=== PATIENT | male | born 1955 | race American Indian/Alaskan Native ===

== ENCOUNTER 2019-03-13 11:09 | Inpatient (IN) | payer MEDICARE ==
[2019-03-13] MEDS ORDERED: DUONEB *Not for PRN Use IH ONE ×2 (11:21→14:12)
--- NOTE | 2019-03-13 11:29 | Emergency Department Report ---
ED General Adult HPI - General Chief complaint: Dyspnea/Respdistress Stated complaint: DIFFICULTY BREATHING Time Seen by Provider: 03/13/19 11:14 Source: patient, EMS Mode of arrival: Stretcher Limitations: No Limitations - History of Present Illness Initial comments: 63-year-old male with history of CHF and COPD is transported via EMS for evaluation of dyspnea. Patient states he did not take his usual medicine today which includes Lasix. He is on CPAP at night and takes home nebulized therapy. He uses Ventolin and Symbicort as well. Hand-held inhaler. He states he's been wheezing over the past 2-3 days. He has had a cough occasionally green but largely nonproductive. He states he thinks he had a fever last night. He is not taking Tylenol today. He does not complain of chest pain. He states he has dyspnea on exertion and some leg swelling. He is requesting a 2-3 day hospitalization. He states, this is usually what is necessary. In addition to the above, the patient states he has service connected disability, chronic lower back pain and "[id number]" of both knees. He takes Percocet and Flexeril daily. He states he is a "borderline diabetic. He is not currently taking prednisone. -: days(s) Severity scale (0 -10): 0 Associated Symptoms: cough, shortness of breath (and wheezing). denies: denies other symptoms Treatments Prior to Arrival: other (home nebulized therapy. Uses CPAP at night.) - Related Data Home Medications Medication Instructions Recorded Confirmed Last Taken Atorvastatin [Lipitor] 80 mg PO QHS 08/10/18 12/07/18 08/18/18 Cyclobenzaprine [Flexeril 10 MG 10 mg PO Q8H PRN 08/10/18 12/07/18 08/18/18 TAB] Previous Rx's Medication Instructions Recorded Last Taken Type Carvedilol [Coreg] 6.25 mg PO BID 30 Days tablet 08/14/18 08/18/18 Rx ISOSORBIDE MONOnitrate [Imdur ER] 60 mg PO QDAY #30 tablet 08/14/18 08/18/18 Rx Tamsulosin HCl [Flomax] 0.4 mg PO QPM #30 capsule 08/14/18 08/18/18 Rx ALBUTEROL NEB's [Proventil 0.083% 2.5 mg IH Q3HRT PRN #30 nebu 08/22/18 Unknown Rx NEBS] Acetaminophen [Acetaminophen TAB] 650 mg PO Q4H PRN #20 tablet 08/22/18 Unknown Rx Amlodipine Besylate [Norvasc] 10 mg PO QDAY #30 tablet 08/22/18 Unknown Rx Budesonide/Formoterol Fumarate 1 puff IH Q12H #1 hfa.aer.ad 08/22/18 Unknown Rx [Symbicort 160-4.5 Mcg Inhaler] Bumetanide [Bumex 1 mg tab] 1 mg PO BID #60 tablet 08/22/18 Unknown Rx Gabapentin [Neurontin] 100 mg PO Q8HR capsule 08/22/18 Unknown Rx Insulin Glargine [Lantus VIAL] 10 units SUB-Q QHS #100 units 08/22/18 Unknown Rx Ipratropium/Albuterol Sulfate 1 ampul IH Q6HR #120 ampul.neb 08/22/18 Unknown Rx [DUONEB *Not for PRN Use*] Lispro Insulin [HumaLOG] 1 dose SUB-Q ACHS PRN #100 units 08/22/18 Unknown Rx Pantoprazole [Protonix TAB] 40 mg PO QDAY #30 tablet 08/22/18 Unknown Rx Allergies Allergy/AdvReac Type Severity Reaction Status Date / Time haloperidol [From Haldol] Allergy Unknown Verified 11/20/18 13:50 tramadol Allergy Rash Verified 11/20/18 13:50 ED Review of Systems ROS: Stated complaint: DIFFICULTY BREATHING Other details as noted in HPI Constitutional: denies: chills, fever Eyes: denies: eye pain, eye discharge, vision change ENT: denies: ear pain, throat pain Respiratory: cough, shortness of breath, wheezing Cardiovascular: edema. denies: chest pain, palpitations Endocrine: no symptoms reported Gastrointestinal: denies: abdominal pain, nausea, diarrhea Genitourinary: denies: urgency, dysuria Musculoskeletal: denies: back pain, joint swelling, arthralgia Skin: denies: rash, lesions Neurological: denies: headache, weakness, paresthesias Psychiatric: denies: anxiety, depression Hematological/Lymphatic: denies: easy bleeding, easy bruising ED Past Medical Hx - Past Medical History Previous Medical History?: Yes Hx Hypertension: Yes (H/O CHF) Hx Heart Attack/AMI: No Hx Congestive Heart Failure: Yes Hx Diabetes: Yes Hx Deep Vein Thrombosis: No Hx Pulmonary Embolism: No Hx Liver Disease: No Hx Renal Disease: No Hx Sickle Cell Disease: No Hx Arthritis: No Hx Seizures: No Hx Kidney Stones: No Hx Asthma: No Hx COPD: Yes (Inhalation therapy x2 last 12 hours) Hx Tuberculosis: No Hx Dementia: No Additional medical history: neuropathy. DJD - Surgical History Hx Open Heart Surgery: No Hx Internal Defibrillator: No Hx Cholecystectomy: No Hx Appendectomy: No Hx Breast Surgery: No - Social History Smoking Status: Former Smoker - Medications Home Medications: Home Medications Medication Instructions Recorded Confirmed Last Taken Type Atorvastatin [Lipitor] 80 mg PO QHS 08/10/18 12/07/18 08/18/18 History Cyclobenzaprine [Flexeril 10 MG 10 mg PO Q8H PRN 08/10/18 12/07/18 08/18/18 History TAB] Carvedilol [Coreg] 6.25 mg PO BID 30 Days tablet 08/14/18 12/07/18 08/18/18 Rx ISOSORBIDE MONOnitrate [Imdur ER] 60 mg PO QDAY #30 tablet 08/14/18 12/07/18 08/18/18 Rx Tamsulosin HCl [Flomax] 0.4 mg PO QPM #30 capsule 08/14/18 12/07/18 08/18/18 Rx ALBUTEROL NEB's [Proventil 0.083% 2.5 mg IH Q3HRT PRN #30 nebu 08/22/18 12/07/18 Unknown Rx NEBS] Acetaminophen [Acetaminophen TAB] 650 mg PO Q4H PRN #20 tablet 08/22/18 12/07/18 Unknown Rx Amlodipine Besylate [Norvasc] 10 mg PO QDAY #30 tablet 08/22/18 12/07/18 Unknown Rx Budesonide/Formoterol Fumarate 1 puff IH Q12H #1 hfa.aer.ad 08/22/18 12/07/18 Unknown Rx [Symbicort 160-4.5 Mcg Inhaler] Bumetanide [Bumex 1 mg tab] 1 mg PO BID #60 tablet 08/22/18 12/07/18 Unknown Rx Gabapentin [Neurontin] 100 mg PO Q8HR capsule 08/22/18 12/07/18 Unknown Rx Insulin Glargine [Lantus VIAL] 10 units SUB-Q QHS #100 units 08/22/18 12/07/18 Unknown Rx Ipratropium/Albuterol Sulfate 1 ampul IH Q6HR #120 ampul.neb 08/22/18 12/07/18 Unknown Rx [DUONEB *Not for PRN Use*] Lispro Insulin [HumaLOG] 1 dose SUB-Q ACHS PRN #100 units 08/22/18 12/07/18 Unknown Rx Pantoprazole [Protonix TAB] 40 mg PO QDAY #30 tablet 08/22/18 12/07/18 Unknown Rx ED Physical Exam - General Limitations: No Limitations General appearance: alert, in no apparent distress, obese - Head Head exam: Present: atraumatic, normocephalic - Eye Eye exam: Present: normal appearance. Absent: scleral icterus - ENT ENT exam: Present: mucous membranes moist - Neck Neck exam: Present: normal inspection. Absent: tenderness, meningismus - Respiratory Respiratory exam: Present: decreased breath sounds, other (mild and expiratory wheeze). Absent: respiratory distress, rales, rhonchi, stridor, accessory muscle use - Cardiovascular Cardiovascular Exam: Present: regular rate, normal rhythm. Absent: systolic murmur, diastolic murmur, rubs, gallop - GI/Abdominal GI/Abdominal exam: Present: soft, normal bowel sounds. Absent: distended, tenderness, guarding, rebound - Rectal Rectal exam: Present: deferred - Extremities Exam Extremities exam: Present: other (trace if any pretibial edema ). Absent: calf tenderness - Back Exam Back exam: Present: normal inspection - Neurological Exam Neurological exam: Present: alert, oriented X3, CN II-XII intact. Absent: motor sensory deficit - Psychiatric Psychiatric exam: Present: normal affect, normal mood - Skin Skin exam: Present: warm, dry, intact, normal color. Absent: rash ED Course Vital Signs 03/13/19 03/13/19 03/13/19 11:17 11:19 11:28 Temperature 97.8 F Pulse Rate 90 76 Pulse Rate [ Bilateral Upper Lobe] Respiratory 18 18 19 Rate Respiratory Rate [Bilateral Upper Lobe] Blood Pressure 144/96 141/71 [Left] O2 Sat by Pulse 95 95 95 Oximetry 03/13/19 03/13/19 11:34 11:40 Temperature Pulse Rate Pulse Rate [ 85 88 Bilateral Upper Lobe] Respiratory Rate Respiratory 20 20 Rate [Bilateral Upper Lobe] Blood Pressure [Left] O2 Sat by Pulse Oximetry - Reevaluation(s) Reevaluation #1: The patient's air exchange has improved. He has some end expiratory wheeze. He is requesting hospitalization. His pulse oximetry is 94-95% on room air. He has NANDO. He is not on home oxygen. Arterial blood gas will be obtained on room air. He will be admitted by the hospitalist service for further care and evaluation. 03/13/19 14:19 ED Medical Decision Making - Lab Data Result diagrams: 03/13/19 11:28 03/13/19 11:28 Laboratory Results - last 24 hr 03/13/19 03/13/19 03/13/19 11:28 11:28 11:28 WBC 4.5 RBC 4.44 Hgb 12.9 Hct 39.8 MCV 90 MCH 29 MCHC 32 RDW 16.9 H Plt Count 270 Lymph % (Auto) 23.3 [place] % (Auto) 10.5 H Eos % (Auto) 3.4 Baso % (Auto) 0.9 Lymph # 1.0 L [place] # 0.5 Eos # 0.2 Baso # 0.0 Seg Neutrophils % 61.9 Seg Neutrophils # 2.8 PT 12.8 INR 0.91 APTT 26.9 Sodium 143 Potassium 4.3 Chloride 105.1 Carbon Dioxide 27 Anion Gap 15 BUN 13 Creatinine 0.8 Estimated GFR > 60 BUN/Creatinine Ratio 16 Glucose 124 H Calcium 9.0 Magnesium 2.10 Total Bilirubin Direct Bilirubin Indirect Bilirubin AST ALT Alkaline Phosphatase Total Creatine Kinase 122 CK-MB (CK-2) 2.3 CK-MB (CK-2) Rel Index 1.8 Troponin T < 0.010 NT-Pro-B Natriuret Pep Total Protein Albumin Albumin/Globulin Ratio 03/13/19 11:28 WBC RBC Hgb Hct MCV MCH MCHC RDW Plt Count Lymph % (Auto) [place] % (Auto) Eos % (Auto) Baso % (Auto) Lymph # [place] # Eos # Baso # Seg Neutrophils % Seg Neutrophils # PT INR APTT Sodium Potassium Chloride Carbon Dioxide Anion Gap BUN Creatinine Estimated GFR BUN/Creatinine Ratio Glucose Calcium Magnesium Total Bilirubin 0.30 Direct Bilirubin < 0.2 Indirect Bilirubin 0.1 AST 9 ALT 12 Alkaline Phosphatase 84 Total Creatine Kinase CK-MB (CK-2) CK-MB (CK-2) Rel Index Troponin T NT-Pro-B Natriuret Pep 136.9 Total Protein 7.0 Albumin 3.4 L Albumin/Globulin Ratio 0.9 - EKG Data -: EKG Interpreted by Me EKG shows normal: sinus rhythm, axis, intervals, QRS complexes, ST-T waves Rate: normal - EKG Data Interpretation: no acute changes - Radiology Data Radiology results: report reviewed, image reviewed IMPRESSION: * Stable cavitary lesion or pulmonary cyst in the right apical lung. * Pulmonary findings may represent pneumonia, bronchitis, reactive airway disease, interstitial pneumonitis, or pulmonary vascular congestion. Suspect mild pulmonary vascular congestion. Critical care attestation.: If time is entered above; I have spent that time in minutes in the direct care of this critically ill patient, excluding procedure time. ED Disposition Clinical Impression: COPD exacerbation Disposition: OP ADMIT IP TO THIS HOSP Is pt being admited?: Yes Does the pt Need Aspirin: Yes Condition: Stable Instructions: Chronic Obstructive Pulmonary Disease (ED) Time of Disposition: 14:20
[2019-03-13 11:39] LABS: Basophils % (Auto) 0.9 % (0.0-1.8); Eosinophils # (Auto) 0.2 K/mm3 (0.0-0.4); Eosinophils % (Auto) 3.4 % (0.0-4.3); Hematocrit 39.8 % (35.5-45.6); Hemoglobin 12.9 gm/dl (11.8-15.2); Lymphocytes % (Auto) 23.3 % (13.4-35.0); Mean Corpuscular HGB Conc 32 % (32-34); Mean Corpuscular Volume 90 fl (84-94); Monocytes # (Auto) 0.5 K/mm3 (0.0-0.8); Monocytes % (Auto) 10.5 % (0.0-7.3); Platelet Count 270 K/mm3 (140-440); Red Blood Count 4.44 M/mm3 (3.65-5.03); Red Cell Distribution Width 16.9 % (13.2-15.2)
[2019-03-13 11:50] LABS: INR 0.91 (0.87-1.13)
[2019-03-13 11:51] LABS: Partial Thromboplastin Time 26.9 Sec. (24.2-36.6)
--- NOTE | 2019-03-13 12:01 | XRay Report ---
PROCEDURE: XR CHEST 1V AP TECHNIQUE: Chest radiograph, AP portable upright view. HISTORY: Dyspnea COMPARISONS: Chest x-ray November 20, 2018. FINDINGS: Cardiac silhouette is within normal limits. This is seen in the right apical lung may represent a cavitary lesion of pulmonary cyst which is unch anged compared to the prior. Mild a prominent central pulmonary markings. No pneumothorax. No distinc t consolidation. No effusion. There are no suspicious osseous lesions. IMPRESSION: * Stable cavitary lesion or pulmonary cyst in the right apical lung. * Pulmonary findings may represent pneumonia, bronchitis, reactive airway disease, interstitial pneu monitis, or pulmonary vascular congestion. Suspect mild pulmonary vascular congestion. This document is electronically signed by Eulogio Kaur MD., Mar 13 2019 11:59:36 AM ET
[2019-03-13 12:02] LABS: BUN/Creatinine Ratio 16; Blood Urea Nitrogen 13 mg/dL (9-20); Hemolysis Index 6
[2019-03-13 12:03] LABS: Creatine Kinase MB 2.3 ng/mL (0.0-4.0)
[2019-03-13 12:06] LABS: Alanine Aminotransferase 12 units/L (7-56); Albumin 3.4 g/dL (3.9-5); Bilirubin,Direct < 0.2 mg/dL (0-0.2)
[2019-03-13] MEDS ORDERED: SOLU-Medrol IV ONE (12:20)
[2019-03-13 12:37] LABS: Bilirubin,Urine NEG (Negative); Blood,Urine NEG (Negative); Color,Urine Yellow (Yellow); Mucus,Urine 2+ /HPF; Protein,Urine <15 mg/dL mg/dL (Negative); Urobilinogen,Urine < 2.0 mg/dL (<2.0)
--- NOTE | 2019-03-13 14:10 | History and Physical Report ---
History of Present Illness Chief complaint: I cant breathe History of present illness: 63 YO Male with MO, Systolic CHF, COPD, HLD, Chronic Pain, HTN, DJD, Peripheral Neuropathy,Nephrolithiasis, NANDO on CPAP presents to ED for evaluation. Pt states that he has experienced shortness of breath over the past 3 days with worsening symptoms over the past 2 days. Pt acknowledges persistently worsening symptoms with increased use of nebulizer therapy, increased productive cough with production of green sputum, dypsnea on exertion, dypsnea at rest, decreased exercise tolerance. Pt denies fever, chills, CP, Palpitations, NVD, productive cough, hemoptysis, unilateral leg swelling, calf pain, prolonged travel/immobility, orthopnea/PND, unintentional weight gain . Pt transported to [facility] by family for further care and evaluation. Pt seen and evaluated in ED and found to have COPD Exacerbation, complicated by Acute Respiratory Failure, CHF Decompensation. Pt treated with supplemental oxygen, nebulizer therapy and diuresis with improvement in symptoms. Pt admitted to telemetry, and initiated on CHF protocol. Cardiology consulted in ED. Past History Past Medical History: arthritis, COPD, heart failure, hypertension, hyperlipidemia Past Surgical History: No surgical history, Other (reviewed) Social history: single, Lives alone. denies: smoking, alcohol abuse, prescription drug abuse Family history: diabetes, hypertension Medications and Allergies Allergies Allergy/AdvReac Type Severity Reaction Status Date / Time haloperidol [From Haldol] Allergy Unknown Verified 11/20/18 13:50 tramadol Allergy Rash Verified 11/20/18 13:50 Home Medications Medication Instructions Recorded Confirmed Last Taken Type Atorvastatin [Lipitor] 80 mg PO QHS 08/10/18 03/13/19 08/18/18 History Cyclobenzaprine [Flexeril 10 MG 10 mg PO Q8H PRN 08/10/18 03/13/19 08/18/18 History TAB] Carvedilol [Coreg] 6.25 mg PO BID 30 Days tablet 08/14/18 03/13/19 08/18/18 Rx ISOSORBIDE MONOnitrate [Imdur ER] 60 mg PO QDAY #30 tablet 08/14/18 03/13/19 08/18/18 Rx Tamsulosin HCl [Flomax] 0.4 mg PO QPM #30 capsule 08/14/18 03/13/19 08/18/18 Rx ALBUTEROL NEB's [Proventil 0.083% 2.5 mg IH Q3HRT PRN #30 nebu 08/22/18 03/13/19 Unknown Rx NEBS] Acetaminophen [Acetaminophen TAB] 650 mg PO Q4H PRN #20 tablet 08/22/18 03/13/19 Unknown Rx Amlodipine Besylate [Norvasc] 10 mg PO QDAY #30 tablet 08/22/18 03/13/19 Unknown Rx Budesonide/Formoterol Fumarate 1 puff IH Q12H #1 hfa.aer.ad 08/22/18 03/13/19 Unknown Rx [Symbicort 160-4.5 Mcg Inhaler] Bumetanide [Bumex 1 mg tab] 1 mg PO BID #60 tablet 08/22/18 03/13/19 Unknown Rx Gabapentin [Neurontin] 100 mg PO Q8HR capsule 08/22/18 03/13/19 Unknown Rx Insulin Glargine [Lantus VIAL] 10 units SUB-Q QHS #100 units 08/22/18 03/13/19 Unknown Rx Ipratropium/Albuterol Sulfate 1 ampul IH Q6HR #120 ampul.neb 08/22/18 03/13/19 Unknown Rx [DUONEB *Not for PRN Use*] Lispro Insulin [HumaLOG] 1 dose SUB-Q ACHS PRN #100 units 08/22/18 03/13/19 Unknown Rx Furosemide [Lasix TAB] 40 mg PO BID 03/13/19 03/13/19 Unknown History oxyCODONE /ACETAMINOPHEN [Percocet 1 tab PO Q6HR PRN 03/13/19 03/13/19 Unknown History 5/325] Review of Systems Constitutional: no weight loss, no weight gain Ears, nose, mouth and throat: no ear pain, no ear discharge, no tinnitis, no decreased hearing, no nose pain, no nasal congestion Cardiovascular: shortness of breath, dyspnea on exertion, leg edema, decreased exercise tolerance, no chest pain, no palpitations, no rapid/irregular heart beat Respiratory: cough, cough with sputum, excessive sputum, shortness of breath Gastrointestinal: no nausea, no vomiting, no diarrhea, no constipation Genitourinary Male: no flank pain, no discharge, no urinary frequency, no urinary hesitancy Rectal: no pain, no incontinence, no bleeding Musculoskeletal: no neck stiffness, no neck pain, no shooting arm pain, no arm numbness/tingling, no low back pain Integumentary: no rash, no pruritis, no redness, no sores, no wounds Neurological: no head injury, no transient paralysis, no paralysis, no weakness, no parathesias, no numbness, no tingling Psychiatric: no anxiety, no memory loss, no hypersomnia, no change in appetite, no disorientation Endocrine: no cold intolerance, no heat intolerance, no polyphagia, no polydipsia Hematologic/Lymphatic: no easy bruising, no easy bleeding, no lymphadenopathy, no lymphedema Allergic/Immunologic: no urticaria, no allergic rhinitis, no anaphylaxis, no angioedema Exam - Constitutional Vitals: Temp Pulse Resp BP Pulse Ox 97.8 F 88 20 141/71 95 03/13/19 11:28 03/13/19 11:40 03/13/19 11:40 03/13/19 11:28 03/13/19 11:28 General appearance: Present: mild distress, obese - EENT Eyes: Present: PERRL ENT: hearing intact, clear oral mucosa - Neck Neck: Present: supple, normal ROM - Respiratory Respiratory effort: normal Respiratory: bilateral: diminished, rhonchi - Cardiovascular Heart Sounds: Present: S1 & S2. Absent: rub, click - Extremities Extremities: pulses symmetrical Extremity abnormal: edema Peripheral Pulses: within normal limits - Abdominal General gastrointestinal: Present: soft, non-tender, non-distended, normal bowel sounds Male genitourinary: Present: normal - Integumentary Integumentary: Present: clear, warm, dry - Musculoskeletal Musculoskeletal: gait normal, strength equal bilaterally - Psychiatric Psychiatric: appropriate mood/affect, intact judgment & insight - Neurologic Neurologic: CNII-XII intact, moves all extremities Results - Labs CBC & Chem 7: 03/13/19 11:28 03/13/19 11:28 Labs: Abnormal lab results 03/13/19 03/13/19 03/13/19 Range/Units 11:28 11:28 11:28 RDW 16.9 H (13.2-15.2) % [place] % (Auto) 10.5 H (0.0-7.3) % Lymph # 1.0 L (1.2-5.4) K/mm3 Glucose 124 H (75-100) mg/dL Albumin 3.4 L (3.9-5) g/dL Assessment and Plan - Patient Problems (1) CHF exacerbation Current Visit: No Status: Acute Qualifiers: Heart failure type: diastolic Qualified Code(s): I50.33 - Acute on chronic diastolic (congestive) heart failure Plan to address problem: CHF Protocol: Admit to telemetry, strict I/O, daily weight, BNP, chest x ray, cardiology consulted in ED, supplemental oxygen, pulse oximetry, diuresis, (2) Obesity hypoventilation syndrome Current Visit: Yes Status: Acute Plan to address problem: Supplemental oxygen, nebulizer therapy, pulse oximetry, NIVVP as clinically indicated, increased physical activity at discharge, outpatient bariatric surgery evaluation. (3) HLD (hyperlipidemia) Current Visit: No Status: Acute Qualifiers: Hyperlipidemia type: mixed hyperlipidemia Qualified Code(s): E78.2 - Mixed hyperlipidemia Plan to address problem: low cholesterol diet, statin therapy, (4) HTN (hypertension) Current Visit: No Status: Acute Qualifiers: Hypertension type: essential hypertension Qualified Code(s): I10 - Es sential (primary) hypertension Plan to address problem: Monitor BP q shift, continue medical management (5) COPD (chronic obstructive pulmonary disease) Current Visit: Yes Status: Acute Qualifiers: COPD type: COPD with acute exacerbation Qualified Code(s): J44.1 - Chronic obstructive pulmonary disease with (acute) exacerbation Plan to address problem: IV steroid therapy, empriic antibiotic therapy, supplemental oxygen, nebulizer therapy, NIPPV as clinically indicated, chest x ray, (6) Respiratory failure Current Visit: Yes Status: Acute Qualifiers: Chronicity: acute Respiratory failure complication: hypoxia Qualified Code(s): J96.01 - Acute respiratory failure with hypoxia Plan to address problem: Supplemental oxygen, nebulizer therapy, pulse oximetry, NIPPV as clinically indicated, pulmonary toilet, treat COPD exacerbation, as well as CHF decompensation, chest x ray. (7) DVT prophylaxis Current Visit: No Status: Acute Plan to address problem: SCD to BLE while in bed, prophylactic lovenox
[2019-03-13] MEDS ORDERED: ZOFRAN IV PRN (14:12)
[2019-03-13] MEDS ORDERED: SODIUM CHLORIDE FLUSH SYRINGE 10 ML IV PRN (14:12)
[2019-03-13] MEDS ORDERED: TYLENOL PO PRN ×2 (14:12→14:14)
[2019-03-13] MEDS ORDERED: PROVENTIL IH PRN (14:12)
[2019-03-13] MEDS ORDERED: HumaLOG SUB-Q PRN (14:14)
[2019-03-13] MEDS ORDERED: NON-FORMULARY (Budesonide/Formoterol Fumarate [Symbicort 160-4.5 Mcg Inhaler] 1 PUFF) IH SCH (14:15)
[2019-03-13] MEDS ORDERED: ASPIRIN PO ONE (14:25)
[2019-03-13] MEDS ORDERED: SOLU-Medrol ONE (14:45)
[2019-03-13] MEDS: LASIX IV SCH (18:18)
[2019-03-13] MEDS: PERCOCET 5/325 PO PRN (18:18)
[2019-03-13] MEDS: HumaLOG SUB-Q SCH ×2 (18:19→22:51)
[2019-03-13] MEDS: FLOMAX PO SCH (18:19)
[2019-03-13] MEDS: BROVANA NEBU IH SCH (19:57)
[2019-03-13] MEDS: PULMICORT IH SCH (19:57)
[2019-03-13] MEDS ORDERED: PULMICORT IH SCH (20:00)
[2019-03-13] MEDS ORDERED: PERCOCET 5/325 PO PRN (20:45)
[2019-03-13] MEDS: LOVENOX SUB-Q SCH (21:35)
[2019-03-13] MEDS: BUMEX PO SCH (21:36)
[2019-03-13] MEDS: NEURONTIN PO SCH (21:36)
[2019-03-13] MEDS: FLEXERIL PO PRN (21:36)
[2019-03-13] MEDS: SODIUM CHLORIDE FLUSH SYRINGE 10 ML IV SCH (21:39)
[2019-03-13] MEDS ORDERED: NON-FORMULARY (Atorvastatin [Lipitor] 80 MG) PO SCH (22:00)
[2019-03-13] MEDS: LANTUS SUB-Q SCH (22:51)
[2019-03-14] MEDS: PERCOCET 5/325 PO PRN ×4 (00:13→18:33)
[2019-03-14] MEDS: LASIX IV SCH ×2 (05:58→18:06)
[2019-03-14] MEDS: NEURONTIN PO SCH ×4 (05:59→21:50)
[2019-03-14 08:13] LABS: Hemoglobin 13.2 gm/dl (11.8-15.2); Mean Corpuscular HGB Conc 33 % (32-34); Mean Corpuscular Volume 89 fl (84-94); Platelet Count 288 K/mm3 (140-440)
[2019-03-14 08:34] LABS: BUN/Creatinine Ratio 14; Blood Urea Nitrogen 13 mg/dL (9-20); Calcium 9.4 mg/dL (8.4-10.2)
[2019-03-14 08:35] LABS: Alanine Aminotransferase 13 units/L (7-56); Albumin 3.7 g/dL (3.9-5); Hemolysis Index 5
[2019-03-14] MEDS: HumaLOG SUB-Q SCH ×4 (08:49→21:51)
[2019-03-14] MEDS: NORVASC PO SCH (09:18)
[2019-03-14] MEDS: IMDUR PO SCH (09:19)
[2019-03-14] MEDS: BUMEX PO SCH ×2 (09:19→21:36)
[2019-03-14] MEDS: PROTONIX PO SCH (09:19)
[2019-03-14] MEDS: FLEXERIL PO PRN ×2 (09:19→18:06)
[2019-03-14] MEDS: SOLU-Medrol IV SCH ×2 (09:19→21:38)
[2019-03-14] MEDS: SODIUM CHLORIDE FLUSH SYRINGE 10 ML IV SCH ×2 (09:21→21:38)
--- NOTE | 2019-03-14 10:18 | Progress Note ---
Assessment and Plan Assessment and plan: 63 YO Male with MO, Systolic CHF, COPD, HLD, Chronic Pain, HTN, DJD, Peripheral Neuropathy,Nephrolithiasis, NANDO on CPAP presents to ED for evaluation. Pt states that he has experienced shortness of breath over the past 3 days with worsening symptoms over the past 2 days. Pt acknowledges persistently worsening symptoms with increased use of nebulizer therapy, increased productive cough with production of green sputum, dypsnea on exertion, dypsnea at rest, decreased exercise tolerance. Pt denies fever, chills, CP, Palpitations, NVD, productive cough, hemoptysis, unilateral leg swelling, calf pain, prolonged travel/immobility, orthopnea/PND, unintentional weight gain . Pt transported to [facility] by family for further care and evaluation. Pt seen and evaluated in ED and found to have COPD Exacerbation, complicated by Acute Respiratory Failure, CHF Decompensation. Pt treated with supplemental oxygen, nebulizer therapy and diuresis with improvement in symptoms. Pt admitted to telemetry, and initiated on CHF protocol. Cardiology consulted in ED. EKG shows normal: sinus rhythm, axis, intervals, QRS complexes, ST-T waves CXR IMPRESSION: * Stable cavitary lesion or pulmonary cyst in the right apical lung. * Pulmonary findings may represent pneumonia, bronchitis, reactive airway disease, interstitial pneumonitis, or pulmonary vascular congestion. Suspect mild pulmonary vascular congestion. Acute Congestive heart failure-presumed Diastolic Obesity hypoventilation syndrome COPD with mild exacerbation Acute respiratory failure with no demonstrable hypoxia Acute bronchitis Diabetes mellitus with hyperglycemia Hyperlipidemia Hypertension RECTAL BLEED- NON CURRENTLY- FOLLOW OUTPATIENT Plan Continue current management while awaiting cardiology evaluation. Echocardiogram pending. Extensive discussion held with the patient about compliance with fluid , while i understandings reason and also on his diet. The patient also blames steroids for his weight gain. He states that he has made some changes in eating habits. We'll also continue treatment with antibiotics for possible delighted bronchitis. Taper steroids He is an ex-smoker reports no further smoking for a few years now. The report intermittent blood in his stool he states that he has a GI doctor that he will follow outpatient. Does not want any evaluation at this time here. dvt/gi PROPHY Anticipate discharge in am History Interval history: Patient seen and examined this morning upset about getting his hypotension diet which the ED doctor promised him. Otherwise reports improvement of symptoms except for still some shortness of breath due to fluid which he says he still feels a little bit more in his lungs. Also he reports a history of having cough consistent with productive phlegm of green phlegm which is described as appearing like a possible. 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 Hospitalist Physical - Physical exam Narrative exam: VITAL SIGNS: Reviewed. GENERAL: The patient appeared well nourished and normally developed, morbidly obese Vital signs as documented. HEAD: No signs of head trauma. EYES: Pupils are equal. Extraocular motions intact. EARS: Hearing grossly intact. MOUTH: Oropharynx is normal. NECK: No adenopathy, no JVD. Mildly tender on the right side. CHEST: Chest with clear breath sounds bilaterally. No wheezes, rales, or rhonchi. CARDIAC: Regular rate and rhythm. S1 and S2, without murmurs, gallops, or rubs. VASCULAR: Trace bilateral pitting edema Peripheral pulses normal and equal in all extremities. ABDOMEN: Increased truncal obesity Soft, non tender and non distended. No rebound or guarding, and no masses palpated. Bowel Sounds normal. MUSCULOSKELETAL: Good range of motion of all major joints. Extremities without clubbing, cyanosis. Trace bilateral pretibial edema NEUROLOGIC EXAM: Alert and oriented x 3 No focal sensory or strength deficits. Speech normal. Follows commands. PSYCHIATRIC: Mood normal. SKIN: Right lower extremity with old healed scars. - Constitutional Vitals: Temp Pulse Resp BP Pulse Ox 98.1 F 92 H 20 138/85 95 03/14/19 05:48 03/14/19 09:18 03/14/19 06:25 03/14/19 09:18 03/14/19 05:52 General appearance: Present: mild distress, obese Results - Labs CBC & Chem 7: 03/14/19 07:37 03/14/19 07:37 Labs: Laboratory Last Values WBC 13.0 K/mm3 (4.5-11.0) H 03/14/19 07:37 RBC 4.50 M/mm3 (3.65-5.03) 03/14/19 07:37 Hgb 13.2 gm/dl (11.8-15.2) 03/14/19 07:37 Hct 40.0 % (35.5-45.6) 03/14/19 07:37 MCV 89 fl (84-94) 03/14/19 07:37 MCH 29 pg (28-32) 03/14/19 07:37 MCHC 33 % (32-34) 03/14/19 07:37 RDW 17.0 % (13.2-15.2) H 03/14/19 07:37 Plt Count 288 K/mm3 (140-440) 03/14/19 07:37 Lymph % (Auto) 23.3 % (13.4-35.0) 03/13/19 11:28 Brown % (Auto) 10.5 % (0.0-7.3) H 03/13/19 11:28 Eos % (Auto) 3.4 % (0.0-4.3) 03/13/19 11:28 Baso % (Auto) 0.9 % (0.0-1.8) 03/13/19 11:28 Lymph # 1.0 K/mm3 (1.2-5.4) L 03/13/19 11:28 Brown # 0.5 K/mm3 (0.0-0.8) 03/13/19 11:28 Eos # 0.2 K/mm3 (0.0-0.4) 03/13/19 11:28 Baso # 0.0 K/mm3 (0.0-0.1) 03/13/19 11:28 Seg Neutrophils % [employer] 03/14/19 07:37 Seg Neutrophils # 2.8 K/mm3 (1.8-7.7) 03/13/19 11:28 PT 12.8 Sec. (12.2-14.9) 03/13/19 11:28 INR 0.91 (0.87-1.13) 03/13/19 11:28 APTT 26.9 Sec. (24.2-36.6) 03/13/19 11:28 Sodium 138 mmol/L (137-145) 03/14/19 07:37 Potassium 4.8 mmol/L (3.6-5.0) 03/14/19 07:37 Chloride 98.1 mmol/L (98-107) 03/14/19 07:37 Carbon Dioxide 26 mmol/L (22-30) 03/14/19 07:37 19 mmol/L 03/14/19 07:37 BUN 13 mg/dL (9-20) 03/14/19 07:37 0.9 mg/dL (0.8-1.5) 03/14/19 07:37 Estimated GFR > 60 ml/min 03/14/19 07:37 14 % 03/14/19 07:37 Glucose 224 mg/dL (75-100) H 03/14/19 07:37 POC Glucose 235 (70-105) H 03/14/19 07:48 Calcium 9.4 mg/dL (8.4-10.2) 03/14/19 07:37 Magnesium 2.10 mg/dL (1.7-2.3) 03/13/19 11:28 0.30 mg/dL (0.1-1.2) 03/14/19 07:37 < 0.2 mg/dL (0-0.2) 03/13/19 11:28 0.1 mg/dL 03/13/19 11:28 AST 9 units/L (5-40) 03/14/19 07:37 ALT 13 units/L (7-56) 03/14/19 07:37 84 units/L (35-129) 03/14/19 07:37 122 units/L (55-170) 03/13/19 11:28 CK-MB (CK-2) 2.3 ng/mL (0.0-4.0) 03/13/19 11:28 CK-MB (CK-2) Rel Index 1.8 (0-4) 03/13/19 11:28 < 0.010 ng/mL (0.00-0.029) 03/13/19 11:28 NT-Pro-B Natriuret Pep 136.9 pg/mL (0-900) 03/13/19 11:28 7.5 g/dL (6.3-8.2) 03/14/19 07:37 3.7 g/dL (3.9-5) L 03/14/19 07:37 1.0 % 03/14/19 07:37 Yellow (Yellow) 03/13/19 12:18 Clear (Clear) 03/13/19 12:18 5.0 (5.0-7.0) 03/13/19 12:18 Ur Specific [place] 1.025 (1.003-1.030) 03/13/19 12:18 <15 mg/dl mg/dL (Negative) 03/13/19 12:18 Neg mg/dL (Negative) 03/13/19 12:18 Neg mg/dL (Negative) 03/13/19 12:18 Neg (Negative) 03/13/19 12:18 Neg (Negative) 03/13/19 12:18 Neg (Negative) 03/13/19 12:18 < 2.0 mg/dL (<2.0) 03/13/19 12:18 Ur Leukocyte Esterase Neg (Negative) 03/13/19 12:18 1.0 /HPF (0.0-6.0) 03/13/19 12:18 5.0 /HPF (0.0-6.0) 03/13/19 12:18 2+ /HPF 03/13/19 12:18 Active Medications - Current Medications Current Medications: Generic Name Dose Route Start Last Admin Trade Name Freq PRN Reason Stop Dose Admin Acetaminophen 650 mg 03/13/19 14:12 Tylenol PO Q4H PRN Pain MILD(1-3)/Fever >100.5/[place] Albuterol 2.5 mg 03/13/19 14:12 03/14/19 06:30 Proventil IH 2.5 mg Q4HRT PRN Administration Shortness Of Breath Albuterol/Ipratropium 1 ampul 03/14/19 08:00 Duoneb *Not For Prn Use* IH TIDRT LIZZ Amlodipine Besylate 10 mg 03/14/19 10:00 03/14/19 09:18 Norvasc PO 10 mg QDAY LIZZ Administration Arformoterol Tartrate 15 mcg 03/13/19 20:00 03/13/19 19:57 Brovana Nebu IH 15 mcg Q12HRT LIZZ Administration Atorvastatin Calcium 80 mg 03/13/19 22:00 03/13/19 21:36 Lipitor PO 80 mg QHS LIZZ Administration Budesonide 0.5 mg 03/13/19 20:00 03/13/19 19:57 Pulmicort IH 0.5 mg Q12HRT LIZZ Administration Bumetanide 1 mg 03/13/19 22:00 03/14/19 09:19 Bumex PO 1 mg BID LIZZ Administration Cyclobenzaprine HCl 10 mg 03/13/19 14:14 03/14/19 09:19 Flexeril PO 10 mg Q8H PRN Administration Spasms Enoxaparin Sodium 40 mg 03/13/19 22:00 03/13/19 21:35 Lovenox SUB-Q 40 mg QDAY@2200 LIZZ Administration Furosemide 40 mg 03/13/19 18:00 03/14/19 05:58 Lasix IV 40 mg 0600,1800 LIZZ Administration Gabapentin 100 mg 03/13/19 22:00 03/14/19 09:20 Neurontin PO 100 mg Q8HR LIZZ Administration Azithromycin 500 mg/ Sodium 250 mls @ 250 mls/hr 03/14/19 10:00 Chloride IV Q24HR LIZZ Insulin Glargine 10 units 03/13/19 22:00 03/13/19 22:51 Lantus SUB-Q 10 units QHS LIZZ Administration Insulin Human Lispro 0 unit 03/13/19 16:30 03/14/19 08:49 Humalog SUB-Q 4 unit ACHS LIZZ Administration Protocol Isosorbide Mononitrate 60 mg 03/14/19 10:00 03/14/19 09:19 Imdur PO 60 mg QDAY LIZZ Administration Methylprednisolone Sodium Succinate 40 mg 03/14/19 10:00 03/14/19 09:19 Solu-Medrol IV 40 mg Q12HR LIZZ Administration Ondansetron HCl 4 mg 03/13/19 14:12 Zofran IV Q8H PRN Nausea And Vomiting Oxycodone/Acetaminophen 1 tab 03/13/19 17:42 03/14/19 05:58 Percocet 5/325 PO 1 tab Q6H PRN Administration Pain, Moderate (4-6) Pantoprazole Sodium 40 mg 03/14/19 10:00 03/14/19 09:19 Protonix PO 40 mg QDAY LIZZ Administration Sodium Chloride 10 ml 03/13/19 22:00 03/14/19 09:21 Sodium Chloride Flush Syringe 10 Ml IV 10 ml BID LIZZ Administration Sodium Chloride 10 ml 03/13/19 14:12 Sodium Chloride Flush Syringe 10 Ml IV PRN PRN LINE FLUSH Tamsulosin HCl 0.4 mg 03/13/19 18:00 03/13/19 18:19 Flomax PO 0.4 mg QPM LIZZ Administration
[2019-03-14 12:12] LABS: Total Cells Counted 100
[2019-03-14 12:13] LABS: Band Neutrophils # (Manual) 0.1 K/mm3; Basophils % (Manual) 0 % (0.0-1.8); Eosinophils % (Manual) 0 % (0.0-4.3)
[2019-03-14 12:14] LABS: Giant Platelets Few; Platelet Estimate Consistent w Auto; Target Cells Few
[2019-03-14] MEDS: ZITHROMAX 500 MG in NACL 0.9% 250ML 250 ML IV SCH (12:59)
[2019-03-14] MEDS: BROVANA NEBU IH SCH ×2 (13:25→20:25)
[2019-03-14] MEDS: PULMICORT IH SCH ×2 (13:26→20:25)
[2019-03-14] MEDS: DUONEB *Not for PRN Use IH SCH ×3 (13:30→20:25)
--- NOTE | 2019-03-14 14:32 | Consultation ---
History of Present Illness Consult date: 03/14/19 Consult reason: congestive heart failure, shortness of breath History of present illness: The patient is a 63-year-old man who is severely obese, has obstructive sleep apnea on home CPAP. He has COPD on home nebulizer treatments. He also has diabetes and hypertension. He denies any prior cardiac history, and denies significant prior cardiac workup. He presents to the hospital at this time with shortness of breath, which pers isted despite taking his home nebulizer treatments repeatedly. He was evaluated in the emergency room, and referred for admission. With further treatments in the hospital, he now looks and feels better. He denies chest pain, denies palpitations, denies lower extremity edema, and does not have significant orthopnea. Cardiac consultation was requested for "CHF". EKG is in normal sinus rhythm, borderline inferior Q waves, poor R-wave progression, no acute ST or T-wave abnormalities. A chest x-ray revealed a normal cardiac silhouette, no interstitial edema, no heart failure. Past History Past Medical History: arthritis, COPD, hypertension, hyperlipidemia Past Surgical History: No surgical history Social history: single, Lives alone. denies: smoking, alcohol abuse, prescription drug abuse Family history: diabetes, hypertension Medications and Allergies Allergies Allergy/AdvReac Type Severity Reaction Status Date / Time haloperidol [From Haldol] Allergy Unknown Verified 11/20/18 13:50 tramadol Allergy Rash Verified 11/20/18 13:50 Home Medications Medication Instructions Recorded Confirmed Last Taken Type Atorvastatin [Lipitor] 80 mg PO QHS 08/10/18 03/13/19 08/18/18 History Cyclobenzaprine [Flexeril 10 MG 10 mg PO Q8H PRN 08/10/18 03/13/19 08/18/18 History TAB] Carvedilol [Coreg] 6.25 mg PO BID 30 Days tablet 08/14/18 03/13/19 08/18/18 Rx ISOSORBIDE MONOnitrate [Imdur ER] 60 mg PO QDAY #30 tablet 08/14/18 03/13/19 08/18/18 Rx Tamsulosin HCl [Flomax] 0.4 mg PO QPM #30 capsule 08/14/18 03/13/19 08/18/18 Rx ALBUTEROL NEB's [Proventil 0.083% 2.5 mg IH Q3HRT PRN #30 nebu 08/22/18 03/13/19 Unknown Rx NEBS] Acetaminophen [Acetaminophen TAB] 650 mg PO Q4H PRN #20 tablet 08/22/18 03/13/19 Unknown Rx Amlodipine Besylate [Norvasc] 10 mg PO QDAY #30 tablet 08/22/18 03/13/19 Unknown Rx Budesonide/Formoterol Fumarate 1 puff IH Q12H #1 hfa.aer.ad 08/22/18 03/13/19 Unknown Rx [Symbicort 160-4.5 Mcg Inhaler] Bumetanide [Bumex 1 mg tab] 1 mg PO BID #60 tablet 08/22/18 03/13/19 Unknown Rx Gabapentin [Neurontin] 100 mg PO Q8HR capsule 08/22/18 03/13/19 Unknown Rx Insulin Glargine [Lantus VIAL] 10 units SUB-Q QHS #100 units 08/22/18 03/13/19 Unknown Rx Ipratropium/Albuterol Sulfate 1 ampul IH Q6HR #120 ampul.neb 08/22/18 03/13/19 Unknown Rx [DUONEB *Not for PRN Use*] Lispro Insulin [HumaLOG] 1 dose SUB-Q ACHS PRN #100 units 08/22/18 03/13/19 Unknown Rx Furosemide [Lasix TAB] 40 mg PO BID 03/13/19 03/13/19 Unknown History oxyCODONE /ACETAMINOPHEN [Percocet 1 tab PO Q6HR PRN 03/13/19 03/13/19 Unknown History 5/325] Active Meds: Active Medications Acetaminophen (Tylenol) 650 mg PO Q4H PRN PRN Reason: Pain MILD(1-3)/Fever >100.5/[place] Albuterol (Proventil) 2.5 mg IH Q4HRT PRN PRN Reason: Shortness Of Breath Last Admin: 03/14/19 06:30 Dose: 2.5 mg Documented by: Albuterol/Ipratropium (Duoneb *Not For Prn Use*) 1 ampul IH TIDRT [facility] Last Admin: 03/14/19 13:30 Dose: 1 ampul Documented by: Amlodipine Besylate (Norvasc) 10 mg PO QDAY [facility] Last Admin: 03/14/19 09:18 Dose: 10 mg Documented by: Arformoterol Tartrate (Brovana Nebu) 15 mcg IH Q12HRT [facility] Last Admin: 03/14/19 13:25 Dose: Not Given Documented by: Atorvastatin Calcium (Lipitor) 80 mg PO QHS [facility] Last Admin: 03/13/19 21:36 Dose: 80 mg Documented by: Budesonide (Pulmicort) 0.5 mg IH Q12HRT [facility] Last Admin: 03/14/19 13:26 Dose: Not Given Documented by: Bumetanide (Bumex) 1 mg PO BID [facility] Last Admin: 03/14/19 09:19 Dose: 1 mg Documented by: Cyclobenzaprine HCl (Flexeril) 10 mg PO Q8H PRN PRN Reason: Spasms Last Admin: 03/14/19 09:19 Dose: 10 mg Documented by: Enoxaparin Sodium (Lovenox) 40 mg SUB-Q QDAY@2200 [facility] Last Admin: 03/13/19 21:35 Dose: 40 mg Documented by: Furosemide (Lasix) 40 mg IV 0600,1800 [facility] Last Admin: 03/14/19 05:58 Dose: 40 mg Documented by: Gabapentin (Neurontin) 100 mg PO Q8HR [facility] Last Admin: 03/14/19 09:20 Dose: 100 mg Documented by: Azithromycin 500 mg/ Sodium (Chloride) 250 mls @ 250 mls/hr IV Q24HR [facility] Last Admin: 03/14/19 12:59 Dose: 250 mls/hr Documented by: [facility]) [facility]: 03/13/19 22:51 Dose: 10 units Documented by: Insulin Human Lispro (Humalog) 0 unit SUB-Q [facility]; Protocol Last Admin: 03/14/19 12:59 Dose: 2 unit Documented by: Isosorbide Mononitrate (Imdur) 60 mg PO QDAY [facility] Last Admin: 03/14/19 09:19 Dose: 60 mg Documented by: Methylprednisolone Sodium Succinate (Solu-Medrol) 40 mg IV Q12HR [facility] Last Admin: 03/14/19 09:19 Dose: 40 mg Documented by: Ondansetron HCl (Zofran) 4 mg IV Q8H PRN PRN Reason: Nausea And Vomiting Oxycodone/Acetaminophen (Percocet 5/325) 1 tab PO Q6H PRN PRN Reason: Pain, Moderate (4-6) Last Admin: 03/14/19 12:58 Dose: 1 tab Documented by: Pantoprazole Sodium (Protonix) 40 mg PO QDAY [facility] Last Admin: 03/14/19 09:19 Dose: 40 mg Documented by: Sodium Chloride (Sodium Chloride Flush Syringe 10 Ml) 10 ml IV BID [facility] Last Admin: 03/14/19 09:21 Dose: 10 ml Documented by: Sodium Chloride (Sodium Chloride Flush Syringe 10 Ml) 10 ml IV PRN PRN PRN Reason: LINE FLUSH Tamsulosin HCl (Flomax) 0.4 mg PO QPM [facility] Last Admin: 03/13/19 18:19 Dose: 0.4 mg Documented by: Review of Systems Cardiovascular: shortness of breath, no chest pain, no orthopnea, no palpitations, no rapid/irregular heart beat, no edema, no syncope, no lightheadedness Physical Examination Vital Signs Pulse Ox 95 03/13/19 11:16 General appearance: no acute distress, obese HEENT: Positive: PERRL Neck: Positive: neck supple Cardiac: Positive: Reg Rate and Rhythm Lungs: Positive: Decreased Breath Sounds Neuro: Positive: Grossly Intact Abdomen: Positive: Soft Male genitourinary: Positive: deferred Skin: Positive: Clear Extremities: Absent: edema Results 03/14/19 07:37 03/14/19 07:37 Cardiac Enzymes 03/14/19 Range/Units 07:37 AST 9 (5-40) units/L CBC 03/14/19 Range/Units 07:37 WBC 13.0 H (4.5-11.0) K/mm3 RBC 4.50 (3.65-5.03) M/mm3 Hgb 13.2 (11.8-15.2) gm/dl Hct 40.0 (35.5-45.6) % Plt Count 288 (140-440) K/mm3 Comprehensive Metabolic Panel 03/14/19 Range/Units 07:37 Sodium 138 (137-145) mmol/L Potassium 4.8 (3.6-5.0) mmol/L Chloride 98.1 (98-107) mmol/L Carbon Dioxide 26 (22-30) mmol/L BUN 13 (9-20) mg/dL Creatinine 0.9 (0.8-1.5) mg/dL Glucose 224 H (75-100) mg/dL Calcium 9.4 (8.4-10.2) mg/dL AST 9 (5-40) units/L ALT 13 (7-56) units/L Alkaline Phosphatase 84 (35-129) units/L Total Protein 7.5 (6.3-8.2) g/dL Albumin 3.7 L (3.9-5) g/dL EKG interpretations - Telemetry EKG Rhythm: Sinus Rhythm Assessment and Plan - Patient Problems (1) Shortness of breath Current Visit: Yes Status: Acute Plan to address problem: Patient's shortness of breath appears likely due to his COPD, sleep apnea and morbid obesity. The ECG is benign, and chest x-ray reveals no interstitial edema or heart failure. We will order an echocardiogram for left ventricular function and right ventricular function assessment, and defer to pulmonary and internal medicine for further management of patient's COPD and sleep apnea.
[2019-03-14] MEDS: FLOMAX PO SCH (17:24)
[2019-03-14] MEDS: LOVENOX SUB-Q SCH (21:38)
[2019-03-14] MEDS: LANTUS SUB-Q SCH (21:51)
[2019-03-15] MEDS: PERCOCET 5/325 PO PRN ×4 (02:27→23:28)
[2019-03-15] MEDS: LASIX IV SCH (06:39)
[2019-03-15] MEDS: NEURONTIN PO SCH ×3 (06:39→22:01)
[2019-03-15] MEDS: BROVANA NEBU IH SCH ×2 (07:24→19:32)
[2019-03-15] MEDS: PULMICORT IH SCH ×2 (07:25→19:32)
[2019-03-15] MEDS: DUONEB *Not for PRN Use IH SCH ×3 (07:25→19:33)
[2019-03-15] MEDS: BUMEX PO SCH ×2 (09:37→22:00)
[2019-03-15] MEDS: NORVASC PO SCH (09:37)
[2019-03-15] MEDS: PROTONIX PO SCH (09:38)
[2019-03-15] MEDS: HumaLOG SUB-Q SCH ×4 (09:38→21:58)
[2019-03-15] MEDS: SOLU-Medrol IV SCH ×3 (09:38→22:01)
[2019-03-15] MEDS: IMDUR PO SCH (09:38)
[2019-03-15] MEDS: SODIUM CHLORIDE FLUSH SYRINGE 10 ML IV SCH ×2 (09:40→22:01)
--- NOTE | 2019-03-15 09:51 | Progress Note ---
Assessment and Plan Shortness of breath likely due to his COPD, sleep apnea and morbid obesity. chest x-ray reveals no interstitial edema or heart failure. Hypertension Diabetes Normal stress thallium test 06/2018. Normal LVEF, 60-65% by echocardiogram 06/2018 Recommendations: Echocardiogram for left ventricular function and right ventricular function reassessment. Defer to pulmonary and internal medicine for further management of patient's COPD and sleep apnea. Subjective Date of service: 03/15/19 Interval history: Patient is sitting up in the bed. He reports his breathing has improved. Objective Vital Signs Temp Pulse Pulse Pulse Pulse Resp Resp 03/15/19 09:38 87 03/15/19 09:37 87 03/15/19 07:35 90 18 03/15/19 07:25 90 18 03/15/19 04:58 97.7 F 90 18 03/15/19 04:00 94 H 03/14/19 23:19 97.6 F 82 18 03/14/19 20:10 92 H 03/14/19 20:00 90 03/14/19 18:00 94 H 03/14/19 15:55 97.3 F L 98 H 20 03/14/19 13:46 87 03/14/19 13:30 93 H 03/14/19 11:23 97.7 F 89 22 Resp BP BP Pulse Ox 03/15/19 09:38 118/73 03/15/19 09:37 118/73 03/15/19 07:35 03/15/19 07:25 96 03/15/19 04:58 116/62 90 03/15/19 04:00 03/14/19 23:19 106/66 87 03/14/19 20:10 16 03/14/19 20:00 18 96 03/14/19 18:00 114/57 03/14/19 15:55 96/50 93 03/14/19 13:46 18 03/14/19 13:30 19 03/14/19 11:23 119/72 91 - Physical Examination General: No Apparent Distress, Other (obese) HEENT: Positive: PERRL Neck: Positive: trachea midline Cardiac: Positive: Reg Rate and Rhythm Lungs: Positive: Decreased Breath Sounds Neuro: Positive: Grossly Intact Extremities: Absent: edema
[2019-03-15] MEDS: ZITHROMAX 500 MG in NACL 0.9% 250ML 250 ML IV SCH (12:20)
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
[2019-03-15] MEDS: FLOMAX PO SCH (17:03)
[2019-03-15] MEDS: FLEXERIL PO PRN (21:05)
[2019-03-15] MEDS: LOVENOX SUB-Q SCH (21:59)
[2019-03-15] MEDS: LANTUS SUB-Q SCH (22:02)
[2019-03-15] MEDS: SENOKOT PO PRN (22:08)
[2019-03-15] MEDS: DESYREL PO SCH (23:49)
[2019-03-16] MEDS: SOLU-Medrol IV SCH ×3 (05:43→21:24)
[2019-03-16] MEDS: NEURONTIN PO SCH ×3 (05:43→21:21)
[2019-03-16] MEDS: PERCOCET 5/325 PO PRN ×3 (07:59→21:24)
--- NOTE | 2019-03-16 08:35 | Progress Note ---
Assessment and Plan Shortness of breath likely due to his COPD, sleep apnea and morbid obesity. chest x-ray reveals no interstitial edema or heart failure. Hypertension Diabetes Normal stress thallium test 06/2018. Normal LVEF, 60-65% by echocardiogram 06/2018 Normal LVEF, 55-60% by an echocardiogram this admission. Conservative management. Subjective Date of service: 03/16/19 Interval history: Patient has no cardiac complaints. Stable sinus rhythm on telemetry. Objective Vital Signs Temp Pulse Pulse Resp Resp BP BP 03/16/19 06:37 97.5 F L 89 18 117/59 03/16/19 00:28 17 03/16/19 00:12 97.4 F L 85 20 106/50 03/15/19 23:28 18 03/15/19 19:45 98 H 17 03/15/19 19:37 03/15/19 19:33 94 H 16 03/15/19 17:10 97.5 F L 99 H 22 119/65 03/15/19 15:32 90 20 03/15/19 15:22 92 H 20 03/15/19 12:57 97.9 F 22 98/49 03/15/19 12:35 97.7 F 90 111/59 03/15/19 09:38 87 118/73 03/15/19 09:37 87 118/73 Pulse Ox 03/16/19 06:37 90 03/16/19 00:28 03/16/19 00:12 93 03/15/19 23:28 03/15/19 19:45 03/15/19 19:37 92 03/15/19 19:33 03/15/19 17:10 93 03/15/19 15:32 03/15/19 15:22 03/15/19 12:57 03/15/19 12:35 93 03/15/19 09:38 03/15/19 09:37 - Physical Examination General: No Apparent Distress, Other (obese) HEENT: Positive: PERRL Neck: Positive: trachea midline Cardiac: Positive: Reg Rate and Rhythm Lungs: Positive: Decreased Breath Sounds Neuro: Positive: Grossly Intact Extremities: Absent: edema
[2019-03-16] MEDS: HumaLOG SUB-Q SCH ×4 (09:07→21:31)
[2019-03-16] MEDS: PROTONIX PO SCH (09:11)
[2019-03-16] MEDS: BUMEX PO SCH ×2 (09:11→21:23)
[2019-03-16] MEDS: NORVASC PO SCH (09:11)
[2019-03-16] MEDS: IMDUR PO SCH (09:11)
[2019-03-16] MEDS: SODIUM CHLORIDE FLUSH SYRINGE 10 ML IV SCH ×2 (09:14→21:22)
[2019-03-16] MEDS: BROVANA NEBU IH SCH ×2 (09:15→20:25)
[2019-03-16] MEDS: DUONEB *Not for PRN Use IH SCH ×3 (09:16→20:19)
[2019-03-16] MEDS: PULMICORT IH SCH ×2 (09:16→20:19)
[2019-03-16] MEDS: ZITHROMAX 500 MG in NACL 0.9% 250ML 250 ML IV SCH (10:00)
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
[2019-03-16] MEDS: SENOKOT PO PRN (14:39)
[2019-03-16] MEDS: FLOMAX PO SCH (17:01)
[2019-03-16] MEDS: DESYREL PO SCH (21:22)
[2019-03-16] MEDS: LOVENOX SUB-Q SCH (21:23)
[2019-03-16] MEDS: LANTUS SUB-Q SCH (21:27)
[2019-03-16] MEDS ORDERED: DESYREL PO SCH (22:00)
[2019-03-17] MEDS: SOLU-Medrol IV SCH ×2 (05:08→13:17)
[2019-03-17] MEDS: NEURONTIN PO SCH ×2 (05:08→13:17)
[2019-03-17] MEDS: PERCOCET 5/325 PO PRN ×2 (05:23→11:13)
[2019-03-17] MEDS: HumaLOG SUB-Q SCH ×2 (08:00→13:16)
--- NOTE | 2019-03-17 09:08 | Progress Note ---
Assessment and Plan Shortness of breath likely due to his COPD, sleep apnea and morbid obesity. chest x-ray reveals no interstitial edema or heart failure. Hypertension Diabetes Normal stress thallium test 06/2018. Normal LVEF, 60-65% by echocardiogram 06/2018 Normal LVEF, 55-60% by an echocardiogram this admission. Conservative management. Subjective Date of service: 03/17/19 Interval history: Patient has no cardiac complaints. He denies chest pain and shortness of breath. Reports he is breathing better. Objective Vital Signs Temp Pulse Pulse Resp Resp BP Pulse Ox 03/17/19 06:23 18 03/17/19 05:57 97.4 F L 93 H 18 126/70 91 03/17/19 05:23 18 03/17/19 00:14 20 03/16/19 23:49 97.6 F 88 20 110/52 90 03/16/19 22:24 20 03/16/19 21:24 20 03/16/19 20:33 98 H 18 03/16/19 20:22 93 03/16/19 20:21 97 H 20 03/16/19 18:05 97.6 F 102 H 20 135/53 95 03/16/19 14:10 98 H 18 03/16/19 12:41 98.1 F 110 H 20 119/71 92 03/16/19 10:00 98 03/16/19 09:29 92 H 20 03/16/19 09:16 89 20 03/16/19 09:12 91 H 20 124/78 95 03/16/19 09:11 124/78 - Physical Examination General: No Apparent Distress, Other (obese) HEENT: Positive: PERRL Neck: Positive: trachea midline Cardiac: Positive: Reg Rate and Rhythm Lungs: Positive: Decreased Breath Sounds Neuro: Positive: Grossly Intact Extremities: Absent: edema
[2019-03-17] MEDS: BUMEX PO SCH (09:43)
[2019-03-17] MEDS: SODIUM CHLORIDE FLUSH SYRINGE 10 ML IV SCH (09:44)
[2019-03-17] MEDS: NORVASC PO SCH (09:44)
[2019-03-17] MEDS: IMDUR PO SCH (09:44)
[2019-03-17] MEDS: PROTONIX PO SCH (09:44)
[2019-03-17] MEDS: PULMICORT IH SCH (10:16)
[2019-03-17] MEDS: BROVANA NEBU IH SCH (10:18)
[2019-03-17] MEDS: DUONEB *Not for PRN Use IH SCH ×2 (10:18→13:48)
--- NOTE | 2019-03-17 10:40 | Discharge Summary ---
Providers - Providers Date of Admission: 03/13/19 14:12 Date of discharge: 03/17/19 Attending physician: DAVID ZARATE MD 03/13/19 16:40 Consult to Dietitian/Nutrition [CONS] Routine Physician Instructions: Reason For Exam: Diabetic/CHF Reason for Consult: Diet education 03/13/19 20:47 Consult to Cardiology [CONS] Routine Consulting Provider: NORBERTO TATUM Reason For Exam: CHF Primary care physician: HOLTER SCANNING TECHNICIAN Hospitalization Reason for admission: COPD exacerbation, morbid obesity Condition: Stable Pertinent studies: Echo; EF of 55-60% Hospital course: 63 YO Male with MO, diastolic CHF, COPD, HLD, Chronic Pain, HTN, DJD, Peripheral Neuropathy,Nephrolithiasis, NANDO on CPAP presents to ED for evaluation. Patient stated that he has experienced shortness of breath over the past 3 days with worsening symptoms over the past 2 days. Patient acknowledges persistently w orsening symptoms with increased use of nebulizer therapy, increased productive cough with production of green sputum, dypsnea on exertion, dypsnea at rest, decreased exercise tolerance. Patient denies fever, chills, CP, Palpitations, NVD, productive cough, hemoptysis, unilateral leg swelling, calf pain, prolonged travel/immobility, orthopnea/PND, unintentional weight gain . Pt transported to [facility] by family for further care and evaluation. Pt seen and evaluated in ED and found to have COPD Exacerbation, complicated by Acute Respiratory Failure, CHF Decompensation. Pt treated with supplemental oxygen, nebulizer therapy and diuresis with improvement in symptoms. Cardiology consulted in ED and said patient didn't have CHF. Obesity hypoventilation syndrome COPD with mild exacerbation secondary to acute bronchitis Acute respiratory failure with no demonstrable hypoxia Acute bronchitis Diabetes mellitus with hyperglycemia Hyperlipidemia Hypertension History of rectal bleed; none currently Patient was qualified for home O2 but declined to have home O2. Disposition: TO HOME OR SELFCARE Time spent for discharge: 32 minutes - Discharge Diagnoses (1) COPD exacerbation Status: Acute (2) Obesity hypoventilation syndrome Status: Acute (3) Respiratory failure Status: Acute Qualifiers: Chronicity: acute Respiratory failure complication: hypoxia Qualified Code(s): J96.01 - Acute respiratory failure with hypoxia Core Measure Documentation - Palliative Care Palliative Care/ Comfort Measures: Not Applicable - Core Measures Any of the following diagnoses?: none Exam - Physical Exam Narrative exam: Not in cardiopulmonary distress. The patient is morbidly obese. Vital signs as documented. Head exam is unremarkable. No scleral icterus . Neck is without jugular venous distension, thyromegaly, or carotid bruits. Lungs are clear to auscultation. Cardiac exam reveals regular rate and Rhythm. Abdominal exam reveals normal bowel sounds. Extremities are nonedematous and both femoral and pedal pulses are normal. DANCE CHOREOGRAPHER: Alert and oriented 3. No focal weakness. - Constitutional Vitals: Temp Pulse Resp BP Pulse Ox 97.4 F L 87 20 126/70 94 03/17/19 05:57 03/17/19 10:33 03/17/19 10:33 03/17/19 05:57 03/17/19 10:16 Plan Activity: no restrictions Weight Bearing Status: Full Weight Bearing Diet: low fat, low carbohydrate Follow up with: PRIMARY CARE,MD [Primary Care Provider] - 7 Days Prescriptions: Prednisone [predniSONE 10 mg (6-Day Pack, 21 Tabs)] 10 mg PO .TAPER #1 tab.ds.pk
[2019-03-17] MEDS: ZITHROMAX 500 MG in NACL 0.9% 250ML 250 ML IV SCH (11:14)
[2019-03-17 11:41] VITALS: BP 128/67
== END 2019-03-17 14:00 | disposition home or self-care (01) | DRG 291 ==
LOC: ED 11:09 → 3A 14:12
PROVIDERS: ADMIT Internal Medicine; ATTEND Internal Medicine
DX: I11.0 Hypertensive heart disease with heart failure (principal); J96.00 Acute respiratory failure, unspecified whether with hypoxia or hypercapnia; Z68.43 Body mass index [BMI] 50.0-59.9, adult; J44.1 Chronic obstructive pulmonary disease with (acute) exacerbation; E66.2 Morbid (severe) obesity with alveolar hypoventilation; J44.0 Chronic obstructive pulmonary disease with (acute) lower respiratory infection; I50.33 Acute on chronic diastolic (congestive) heart failure; E11.42 Type 2 diabetes mellitus with diabetic polyneuropathy; G89.29 Other chronic pain; J20.9 Acute bronchitis, unspecified; E11.65 Type 2 diabetes mellitus with hyperglycemia; M19.90 Unspecified osteoarthritis, unspecified site; E78.2 Mixed hyperlipidemia; Z83.3 Family history of diabetes mellitus; Z82.49 Family history of ischemic heart disease and other diseases of the circulatory system; Z79.899 Other long term (current) drug therapy; Z79.4 Long term (current) use of insulin
CPT/HCPCS: 36415; 71045; 80048; 80053; 80076; 81001; 82550; 82553; 82962; 83735; 83880; 84484; 85007; 85025; 85610; 85730; 87116; 93005; 93010; 93306; 94640; 94760; 96374; G0378; A9270-GY; J0456; J1650; J1815; J1940; J2920; J2930; J7050

== ENCOUNTER 2019-06-29 13:58 | Observation (INO) | payer MEDICARE ==
[2019-06-29 15:23] LABS: Eosinophils # (Auto) 0.2 K/mm3 (0.0-0.4); Eosinophils % (Auto) 3.4 % (0.0-4.3); Hematocrit 41.8 % (35.5-45.6); Hemoglobin 13.5 gm/dl (11.8-15.2); Lymphocytes # (Auto) 1.2 K/mm3 (1.2-5.4); Lymphocytes % (Auto) 23.7 % (13.4-35.0); Mean Corpuscular HGB Conc 32 % (32-34); Mean Corpuscular Volume 91 fl (84-94); Monocytes # (Auto) 0.6 K/mm3 (0.0-0.8); Monocytes % (Auto) 12.3 % (0.0-7.3); Platelet Count 232 K/mm3 (140-440); Red Blood Count 4.61 M/mm3 (3.65-5.03); Red Cell Distribution Width 16.1 % (13.2-15.2)
[2019-06-29 15:33] LABS: INR 1.01 (0.87-1.13)
[2019-06-29 15:34] LABS: Partial Thromboplastin Time 26.3 Sec. (24.2-36.6)
[2019-06-29 15:38] LABS: BUN/Creatinine Ratio 19; Blood Urea Nitrogen 21 mg/dL (9-20); Calcium 8.8 mg/dL (8.4-10.2); Hemolysis Index 15
--- NOTE | 2019-06-29 15:58 | Emergency Department Report ---
HPI - General Chief Complaint: Chest Pain Time Seen by Provider: 06/29/19 14:46 - HPI HPI: Room 23 The patient is a 64-year-old male presenting with a chief complaint chest tightness. The patient states his symptoms began this morning with substernal c hest tightness. The patient states he took a nebulizer but it did not help. The patient states he lay down and went to sleep and when he awakened this chest tightness worsened. Patient states it feels as though he is being struck in the chest with a sledgehammer. Patient missed a pleurisy. Patient admits to shortness of breath with this chest pain but denies nausea/vomiting or diaphoresis. Patient states his last stress test occurred in January of this year but he has never had a cardiac catheterization. Patient gives his chest pain a score of 9/10 Location: [See above] Duration: [See above] Quality: [See above] Severity: [See above] Timing: [See above] Context: [See above] Modifying factors: [See above] Associated signs and symptoms: [see above] ED Past Medical Hx - Past Medical History Previous Medical History?: Yes Hx Hypertension: Yes Hx Congestive Heart Failure: Yes Hx Arthritis: Yes (Lt. hip) Hx COPD: Yes Additional medical history: neuropathy. DJD - Surgical History Past Surgical History?: Yes - Family History Family history: no significant - Social History Smoking Status: Former Smoker (none 1 year) Substance Use Type: None (denies illicit drug use), Alcohol (occasional) - Medications Home Medications: Home Medications Medication Instructions Recorded Confirmed Last Taken Type Atorvastatin [Lipitor] 80 mg PO QHS 08/10/18 03/13/19 08/18/18 History Cyclobenzaprine [Flexeril 10 MG 10 mg PO Q8H PRN 08/10/18 03/13/19 08/18/18 History TAB] Carvedilol [Coreg] 6.25 mg PO BID 30 Days tablet 08/14/18 03/13/19 08/18/18 Rx ISOSORBIDE MONOnitrate [Imdur ER] 60 mg PO QDAY #30 tablet 08/14/18 03/13/19 08/18/18 Rx Tamsulosin HCl [Flomax] 0.4 mg PO QPM #30 capsule 08/14/18 03/13/19 08/18/18 Rx ALBUTEROL NEB's [Proventil 0.083% 2.5 mg IH Q3HRT PRN #30 nebu 08/22/18 03/13/19 Unknown Rx NEBS] Acetaminophen [Acetaminophen TAB] 650 mg PO Q4H PRN #20 tablet 08/22/18 03/13/19 Unknown Rx Amlodipine Besylate [Norvasc] 10 mg PO QDAY #30 tablet 08/22/18 03/13/19 Unknown Rx Budesonide/Formoterol Fumarate 1 puff IH Q12H #1 hfa.aer.ad 08/22/18 03/13/19 Unknown Rx [Symbicort 160-4.5 Mcg Inhaler] Bumetanide [Bumex 1 mg tab] 1 mg PO BID #60 tablet 08/22/18 03/13/19 Unknown Rx Gabapentin [Neurontin] 100 mg PO Q8HR capsule 08/22/18 03/13/19 Unknown Rx Insulin Glargine [Lantus VIAL] 10 units SUB-Q QHS #100 units 08/22/18 03/13/19 Unknown Rx Ipratropium/Albuterol Sulfate 1 ampul IH Q6HR #120 ampul.neb 08/22/18 03/13/19 Unknown Rx [DUONEB *Not for PRN Use*] Lispro Insulin [HumaLOG] 1 dose SUB-Q ACHS PRN #100 units 08/22/18 03/13/19 Unknown Rx Furosemide [Lasix TAB] 40 mg PO BID 03/13/19 03/13/19 Unknown History oxyCODONE /ACETAMINOPHEN [Percocet 1 tab PO Q6HR PRN 03/13/19 03/13/19 Unknown History 5/325 mg] traZODone [Desyrel] 100 mg PO QHS 03/15/19 03/15/19 03/15/19 21:05 History 100 Prednisone [predniSONE 10 mg 10 mg PO .TAPER #1 tab.ds.pk 03/17/19 Unknown Rx (6-Day Pack, 21 Tabs)] ED Review of Systems ROS: Stated complaint: CHEST PAIN Other details as noted in HPI Constitutional: denies: diaphoresis Eyes: denies: eye pain ENT: denies: throat pain Respiratory: shortness of breath Cardiovascular: chest pain Endocrine: no symptoms reported Gastrointestinal: denies: nausea, vomiting Genitourinary: denies: dysuria Musculoskeletal: denies: back pain Neurological: denies: headache Physical Exam - Physical Exam Vital Signs: Vital Signs 06/29/19 06/29/19 14:17 14:45 Temperature 98.2 F Pulse Rate 86 Respiratory 14 18 Rate Blood Pressure 105/66 Blood Pressure 105/66 [Right] O2 Sat by Pulse 100 100 Oximetry Physical Exam: GENERAL: The patient is well-developed well-nourished male lying on stretcher not appearing to be in acute distress HEENT: Normocephalic. Atraumatic. Extraocular motions are intact. Patient has moist mucous membranes. NECK: Supple. Trachea midline CHEST/LUNGS: Clear to auscultation. There is no respiratory distress noted. HEART/CARDIOVASCULAR: Regular. There is no tachycardia. There is no gallop rub or murmur. ABDOMEN: Abdomen is soft, nontender. Patient has normal bowel sounds. There is no abdominal distention. SKIN: There is no rash. There is no edema. There is no diaphoresis. NEURO: The patient is awake, alert, and oriented. The patient is cooperative. The patient has no focal neurologic deficits. The patient has normal speech. MUSCULOSKELETAL: There is no evidence of acute injury. ED Course Vital Signs 06/29/19 06/29/19 14:17 14:45 Temperature 98.2 F Pulse Rate 86 Respiratory 14 18 Rate Blood Pressure 105/66 Blood Pressure 105/66 [Right] O2 Sat by Pulse 100 100 Oximetry ED Medical Decision Making - Lab Data Result diagrams: 06/29/19 15:03 06/29/19 15:03 Laboratory Tests 06/29/19 06/29/19 06/29/19 15:03 15:03 15:03 WBC 4.9 RBC 4.61 Hgb 13.5 Hct 41.8 MCV 91 MCH 29 MCHC 32 RDW 16.1 H Plt Count 232 Lymph % (Auto) 23.7 Ward % (Auto) 12.3 H Eos % (Auto) 3.4 Baso % (Auto) 1.0 Lymph # 1.2 Ward # 0.6 Eos # 0.2 Baso # 0.0 Seg Neutrophils % 59.6 Seg Neutrophils # 2.9 PT 13.0 INR 1.01 APTT 26.3 Sodium 141 Potassium 3.8 Chloride 104.8 Carbon Dioxide 27 Anion Gap 13 BUN 21 H Creatinine 1.1 Estimated GFR > 60 BUN/Creatinine Ratio 19 Glucose 113 H Calcium 8.8 Total Creatine Kinase 117 CK-MB (CK-2) 2.0 CK-MB (CK-2) Rel Index 1.7 Troponin T NT-Pro-B Natriuret Pep 06/29/19 15:03 WBC RBC Hgb Hct MCV MCH MCHC RDW Plt Count Lymph % (Auto) Ward % (Auto) Eos % (Auto) Baso % (Auto) Lymph # Ward # Eos # Baso # Seg Neutrophils % Seg Neutrophils # PT INR APTT Sodium Potassium Chloride Carbon Dioxide Anion Gap BUN Creatinine Estimated GFR BUN/Creatinine Ratio Glucose Calcium Total Creatine Kinase CK-MB (CK-2) CK-MB (CK-2) Rel Index Troponin T < 0.010 NT-Pro-B Natriuret Pep 32.07 - EKG Data -: EKG Interpreted by Me EKG shows normal: sinus rhythm Rate: normal - EKG Data When compared to previous EKG there are: previous EKG unavailable Interpretation: other (no ischemic changes seen) - Radiology Data Radiology results: report reviewed (chest x-ray, VQ scan), image reviewed (chest x-ray, VQ scan) interpreted by me: Chest x-ray-no definite focal infiltrates. No pneumothorax [facility] [address] [place] [address] Nuclear Medicine Report Signed Patient: ROGER REBOLLAR MR#: [id number] : 1955 Acct:[id number] Age/Sex: 64 / M ADM Date: 06/29/19 Loc: ED Attending Dr: Ordering Physician: ROSALEE ZAPATA MD Date of Service: 06/29/19 Procedure(s): NM lung scan perf/vent Accession Number(s): [id number] cc: ROSALEE ZAPATA MD Ventilation/perfusion scan of the lungs INDICATION: Shortness of breath TECHNIQUE: The patient was administered 5.5 mCi of technetium 99 MAA for the perfusion phase of the study as well as 20 mCi of xenon-133 for the ventilation phase FINDINGS: The ventilation phase there is mild air trapping especially at the left base. There is a matched ventilation/perfusion defect at the right lung apex due to the presence of large bulla in this area. Otherwise the ventilation and perfusion is unremarkable. There are no segmental or subsegmental perfusion defects and probability of embolus is considered low. Signer Name: Mika Santos MD Signed: 06/29/2019 4:10 PM Workstation Name: [id number] Transcribed By: ANITRA Dictated By: Mika Santos MD Electronically Authenticated By: Mika Santos MD Signed Date/Time: 06/29/19 1610 DD/ 1608 TD/TT: [facility] [address] [place] [address] XRay Report Signed Patient: ROGER REBOLLAR MR#: [id number] : 1955 Acct:[id number] Age/Sex: 64 / M ADM Date: 06/29/19 Loc: ED Attending Dr: Ordering Physician: ROSALEE ZAPATA MD Date of Service: 06/29/19 Procedure(s): XR chest 1V ap Accession Number(s): [id number] cc: ROSALEE ZAPATA MD Fluoro Time In Minutes: CHEST 1 VIEW INDICATION: chest pain, shortness of breath nu med will bring. COMPARISON: 03/13/2019 report FINDINGS: Support devices: None. Heart: Borderline to mild cardiomegaly. Lungs/Pleura: No acute air space or interstitial disease. Mild central pulmonary venous congestion is identified. Additional findings: None. IMPRESSION: Borderline heart size. Lungs clear. Signer Name: Stalin Richey Jr, MD Signed: 06/29/2019 4:18 PM Workstation Name: [id number] Transcribed By: SINDHU Dictated By: STALIN RICHEY JR, MD Electronically Authenticated By: STALIN RICHEY JR, MD Signed Date/Time: 06/29/19 161 DD/ 1617 TD/TT: - Differential Diagnosis ACS, PE, pericarditis, GERD, CHF exacerbation Critical care attestation.: If time is entered above; I have spent that time in minutes in the direct care of this critically ill patient, excluding procedure time. ED Disposition Clinical Impression: Chest pain Disposition: OP ADMIT IP TO THIS HOSP Is pt being admited?: Yes Does the pt Need Aspirin: Yes Condition: Stable Instructions: Chest Pain (ED) Time of Disposition: 16:28 (Hospitalist notified (Dr Rodriguez))
[2019-06-29] MEDS ORDERED: ZOFRAN IV ONE (16:10)
[2019-06-29] MEDS ORDERED: SUBLIMAZE IV ONE (16:10)
--- NOTE | 2019-06-29 16:15 | Nuclear Medicine Report ---
Ventilation/perfusion scan of the lungs INDICATION: Shortness of breath TECHNIQUE: The patient was administered 5.5 mCi of technetium 99 MAA for the perfusion phase of the s tudy as well as 20 mCi of xenon-133 for the ventilation phase FINDINGS: The ventilation phase there is mild air trapping especially at the left base. There is a ma tched ventilation/perfusion defect at the right lung apex due to the presence of large bulla in this area. Otherwise the ventilation and perfusion is unremarkable. There are no segmental or subsegmental perfusion defects and probability of embolus is considered low. Signer Name: Mika Santos MD Signed: 06/29/2019 4:10 PM Workstation Name: [id number]
--- NOTE | 2019-06-29 16:23 | XRay Report ---
CHEST 1 VIEW INDICATION: chest pain, shortness of breath nu med will bring. COMPARISON: 03/13/2019 report FINDINGS: Support devices: None. Heart: Borderline to mild cardiomegaly. Lungs/Pleura: No acute air space or interstitial disease. Mild central pulmonary venous congestion is identified. Additional findings: None. IMPRESSION: Borderline heart size. Lungs clear. Signer Name: Stalin Richey Jr, MD Signed: 06/29/2019 4:18 PM Workstation Name: [id number]
[2019-06-29] MEDS ORDERED: ASPIRIN PO ONE (16:29)
--- NOTE | 2019-06-29 16:44 | History and Physical Report ---
History of Present Illness Chief complaint: I feel tight, and I really cant breathe History of present illness: 64 YO Male with MO, Systolic CHF, COPD, HLD, Chronic Pain, HTN, DJD, Peripheral Neuropathy,Nephrolithiasis, NANDO on CPAP presents to ED for evaluation. Pt states that he has experienced shortness of breath and chest discomfort over the past 3 days with worsening symptoms over the past 2 days. Pt acknowledges persistently worsening symptoms that are not relieved with increased use of nebulizer therapy. PT acknowledges Orthopnea/PND, dypsnea on exertion, dypsnea at rest, decreased exercise tolerance. Pt denies fever, chills, CP, Palpitations, NVD, productive cough, hemoptysis, unilateral leg swelling, calf pain, prolonged travel/immobility, unintentional weight gain. EMS notified, and upon arrival the patient found to be in distress. Pt transported to [facility] by family for further care and evaluation. Pt seen and evaluated in ED and found to have CHF Decompensation complicated by Acute Respiratory Failure, Obesity Hypoventilation. Pt treated with supplemental oxygen, nebulizer therapy and diuresis with improvement in symptoms. Pt admitted to telemetry, and initiated on CHF protocol. Cardiology consulted in ED. Prior admission on 03/13/19 reviewed. Pt requests double meal portions. All listed medication reconciled at time of admission. Past History Past Medical History: arthritis, COPD, heart failure, hypertension, hyperlipidemia Past Surgical History: No surgical history, Other (reviewed) Social history: single. denies: smoking, alcohol abuse, prescription drug abuse Family history: diabetes, hypertension Medications and Allergies Allergies Allergy/AdvReac Type Severity Reaction Status Date / Time haloperidol [From Haldol] Allergy Unknown Verified 11/20/18 13:50 tramadol Allergy Rash Verified 11/20/18 13:50 Home Medications Medication Instructions Recorded Confirmed Last Taken Type Atorvastatin [Lipitor] 80 mg PO QHS 08/10/18 03/13/19 08/18/18 History Cyclobenzaprine [Flexeril 10 MG 10 mg PO Q8H PRN 08/10/18 03/13/19 08/18/18 History TAB] Carvedilol [Coreg] 6.25 mg PO BID 30 Days tablet 08/14/18 03/13/19 08/18/18 Rx ISOSORBIDE MONOnitrate [Imdur ER] 60 mg PO QDAY #30 tablet 08/14/18 03/13/19 08/18/18 Rx Tamsulosin HCl [Flomax] 0.4 mg PO QPM #30 capsule 08/14/18 03/13/19 08/18/18 Rx ALBUTEROL NEB's [Proventil 0.083% 2.5 mg IH Q3HRT PRN #30 nebu 08/22/18 03/13/19 Unknown Rx NEBS] Acetaminophen [Acetaminophen TAB] 650 mg PO Q4H PRN #20 tablet 08/22/18 03/13/19 Unknown Rx Amlodipine Besylate [Norvasc] 10 mg PO QDAY #30 tablet 08/22/18 03/13/19 Unknown Rx Budesonide/Formoterol Fumarate 1 puff IH Q12H #1 hfa.aer.ad 08/22/18 03/13/19 Unknown Rx [Symbicort 160-4.5 Mcg Inhaler] Bumetanide [Bumex 1 mg tab] 1 mg PO BID #60 tablet 08/22/18 03/13/19 Unknown Rx Gabapentin [Neurontin] 100 mg PO Q8HR capsule 08/22/18 03/13/19 Unknown Rx Insulin Glargine [Lantus VIAL] 10 units SUB-Q QHS #100 units 08/22/18 03/13/19 Unknown Rx Ipratropium/Albuterol Sulfate 1 ampul IH Q6HR #120 ampul.neb 08/22/18 03/13/19 Unknown Rx [DUONEB *Not for PRN Use*] Lispro Insulin [HumaLOG] 1 dose SUB-Q ACHS PRN #100 units 08/22/18 03/13/19 Unknown Rx Furosemide [Lasix TAB] 40 mg PO BID 03/13/19 03/13/19 Unknown History oxyCODONE /ACETAMINOPHEN [Percocet 1 tab PO Q6HR PRN 03/13/19 03/13/19 Unknown History 5/325 mg] traZODone [Desyrel] 100 mg PO QHS 03/15/19 03/15/19 03/15/19 21:05 History 100 Prednisone [predniSONE 10 mg 10 mg PO .TAPER #1 tab.ds.pk 03/17/19 Unknown Rx (6-Day Pack, 21 Tabs)] Review of Systems Constitutional: no weight loss, no weight gain, no fever, no chills Ears, nose, mouth and throat: no ear pain, no ear discharge, no decreased hearing, no nasal congestion Cardiovascular: orthopnea, shortness of breath, dyspnea on exertion, paroxysmal nocturnal dyspnea, high blood pressure, decreased exercise tolerance, no chest pain Respiratory: no cough, no cough with sputum, no excessive sputum Gastrointestinal: no abdominal pain, no nausea, no vomiting, no diarrhea Genitourinary Male: no dysuria, no flank pain, no urinary frequency Rectal: no pain, no incontinence, no bleeding Musculoskeletal: no neck stiffness, no shooting arm pain, no arm numbness/tingling, no shooting leg pain Integumentary: no rash, no redness, no wounds, no boils Neurological: no transient paralysis, no weakness, no tingling, no syncope Psychiatric: no anxiety, no memory loss, no insomnia, no change in appetite, no suicidal ideation Endocrine: no cold intolerance, no polyphagia, no polyuria, no excessive sweating Hematologic/Lymphatic: no easy bruising, no easy bleeding, no lymphadenopathy Allergic/Immunologic: no urticaria, no allergic rhinitis, no persistent infections Exam - Constitutional Vitals: Temp Pulse Resp BP Pulse Ox 98.2 F 86 18 105/66 100 06/29/19 14:17 06/29/19 14:17 06/29/19 14:45 06/29/19 14:17 06/29/19 14:45 General appearance: Present: mild distress, obese - EENT Eyes: Present: PERRL ENT: hearing intact, clear oral mucosa - Neck Neck: Present: supple, normal ROM - Respiratory Respiratory effort: normal Respiratory: bilateral: diminished, rhonchi - Cardiovascular Heart Sounds: Present: S1 & S2. Absent: rub, click - Extremities Extremities: pulses symmetrical Extremity abnormal: edema Peripheral Pulses: within normal limits - Abdominal General gastrointestinal: Present: soft, non-tender, non-distended, normal bowel sounds Male genitourinary: Present: normal - Integumentary Integumentary: Present: clear, warm, dry - Musculoskeletal Musculoskeletal: generalized weakness - Psychiatric Psychiatric: appropriate mood/affect, intact judgment & insight - Neurologic Neurologic: CNII-XII intact, moves all extremities Results - Labs CBC & Chem 7: 06/29/19 15:03 06/30/19 05:25 Labs: Abnormal lab results 06/29/19 06/29/19 Range/Units 15:03 15:03 RDW 16.1 H (13.2-15.2) % [place] % (Auto) 12.3 H (0.0-7.3) % BUN 21 H (9-20) mg/dL Glucose 113 H (75-100) mg/dL Assessment and Plan - Patient Problems (1) CHF (congestive heart failure) Current Visit: Yes Status: Acute Qualifiers: Heart failure chronicity: acute on chronic Plan to address problem: Admit to Telemetry, Cardiology consulted, Echo from 03/14 reviewed, diuresis, strict I/O, daily weight, monitor uop q shift, supplemental oxygen, nebulizer therapy, pulse oximetry,Chest X ray, (2) Acute respiratory failure Current Visit: Yes Status: Acute Qualifiers: Respiratory failure complication: hypoxia Qualified Code(s): J96.01 - Acute respiratory failure with hypoxia Plan to address problem: Supplemental oxygen, nebulizer therapy, pulse oximetry, NIPPV as clinically sreedhar cated, chest x ray (3) Obesity hypoventilation syndrome Current Visit: Yes Status: Acute Plan to address problem: Supplemental oxygen, nebulizer therapy, balanced diet, increased activity at discharge, outpatient bariatric surgery evaluation. (4) Diabetes Current Visit: Yes Status: Acute Plan to address problem: ADA diet, insulin, accu check, hypoglycemia protocol (5) HLD (hyperlipidemia) Current Visit: No Status: Acute Qualifiers: Hyperlipidemia type: mixed hyperlipidemia Qualified Code(s): E78.2 - Mixed hyperlipidemia Plan to address problem: Statin therapy, low fat, low cholesterol diet, (6) HTN (hypertension) Current Visit: No Status: Acute Qualifiers: Hypertension type: essential hypertension Qualified Code(s): I10 - Essential (primary) hypertension Plan to address problem: Monitor bp q shift, continue medical management, (7) DVT prophylaxis Current Visit: No Status: Acute Plan to address problem: SCD to BLW while in bed, early ambulation PRN
[2019-06-29] MEDS ORDERED: SODIUM CHLORIDE FLUSH SYRINGE 10 ML IV PRN (17:02)
[2019-06-29] MEDS ORDERED: TYLENOL PO PRN (17:02)
[2019-06-29] MEDS ORDERED: PROVENTIL IH PRN (17:02)
[2019-06-29] MEDS ORDERED: ZOFRAN IV PRN (17:02)
[2019-06-29] MEDS: LASIX IV SCH (17:38)
[2019-06-29] MEDS: DUONEB *Not for PRN Use IH SCH (19:46)
[2019-06-29] MEDS: PERCOCET 5/325 PO PRN (22:56)
[2019-06-29] MEDS: SODIUM CHLORIDE FLUSH SYRINGE 10 ML IV SCH (22:58)
[2019-06-30] MEDS: LASIX IV SCH (05:03)
[2019-06-30] MEDS: PERCOCET 5/325 PO PRN ×3 (05:04→15:53)
[2019-06-30 06:21] LABS: Alanine Aminotransferase 9 units/L (7-56); Albumin 3.6 g/dL (3.9-5); BUN/Creatinine Ratio 18; Blood Urea Nitrogen 18 mg/dL (9-20); Calcium 8.7 mg/dL (8.4-10.2); Hemolysis Index 45
[2019-06-30] MEDS ORDERED: NON-FORMULARY (Budesonide/Formoterol Fumarate [Symbicort 160-4.5 Mcg Inhaler] 1 PUFF) IH SCH (07:00)
[2019-06-30] MEDS ORDERED: TYLENOL PO PRN (08:30)
[2019-06-30] MEDS ORDERED: FLEXERIL PO PRN (08:30)
[2019-06-30] MEDS: DUONEB *Not for PRN Use IH SCH (08:55)
[2019-06-30] MEDS ORDERED: BROVANA NEBU IH SCH (10:00)
[2019-06-30] MEDS ORDERED: NORVASC PO SCH (10:00)
[2019-06-30] MEDS ORDERED: IMDUR PO SCH (10:00)
[2019-06-30] MEDS ORDERED: PULMICORT IH SCH ×2 (10:00→16:52)
[2019-06-30] MEDS ORDERED: BUMEX PO SCH (10:00)
[2019-06-30] MEDS ORDERED: COREG PO SCH ×2 (10:00)
[2019-06-30 10:41] VITALS: BP 128/71
--- NOTE | 2019-06-30 11:38 | Consultation ---
<OLINDA PRATT - Last Filed: 06/30/19 11:40> History of Present Illness Consult date: 06/30/19 Consult reason: congestive heart failure History of present illness: This is a 64-year-old man who is severely obese, with obstructive sleep apnea on home CPAP and has COPD. Patient also has a history of diabetes and hypertension. There is no prior cardiac history. He has undergone extensive cardiac evaluation. He has had a negative stress thallium test and a normal left ventricular systolic function, ejection fraction 60% by echocardiogram. He presents to the hospital at this time with shortness of breath, admitted for further evaluation. Cardiac consultation was requested for CHF. He denies chest pain, denies palpitations, and has no lower extremity edema. A chest x-ray revealed no interstitial edema. Low probability for PE via ventilation perfusion scan. EKG is in normal sinus rhythm. No acute ST or T-wave abnormalities. Past History Past Medical History: arthritis, COPD, heart failure, hypertension, hyperlipidem ia Past Surgical History: No surgical history, Other (reviewed) Social history: single. denies: smoking, alcohol abuse, prescription drug abuse Family history: diabetes, hypertension Medications and Allergies Allergies Allergy/AdvReac Type Severity Reaction Status Date / Time haloperidol [From Haldol] Allergy Unknown Verified 11/20/18 13:50 tramadol Allergy Rash Verified 11/20/18 13:50 Home Medications Medication Instructions Recorded Confirmed Last Taken Type Atorvastatin [Lipitor] 80 mg PO QHS 08/10/18 03/13/19 08/18/18 History Cyclobenzaprine [Flexeril 10 MG 10 mg PO Q8H PRN 08/10/18 03/13/19 08/18/18 History TAB] Carvedilol [Coreg] 6.25 mg PO BID 30 Days tablet 08/14/18 03/13/19 08/18/18 Rx ISOSORBIDE MONOnitrate [Imdur ER] 60 mg PO QDAY #30 tablet 08/14/18 03/13/19 08/18/18 Rx Tamsulosin HCl [Flomax] 0.4 mg PO QPM #30 capsule 08/14/18 03/13/19 08/18/18 Rx ALBUTEROL NEB's [Proventil 0.083% 2.5 mg IH Q3HRT PRN #30 nebu 08/22/18 03/13/19 Unknown Rx NEBS] Acetaminophen [Acetaminophen TAB] 650 mg PO Q4H PRN #20 tablet 08/22/18 03/13/19 Unknown Rx Amlodipine Besylate [Norvasc] 10 mg PO QDAY #30 tablet 08/22/18 03/13/19 Unknown Rx Budesonide/Formoterol Fumarate 1 puff IH Q12H #1 hfa.aer.ad 08/22/18 03/13/19 Unknown Rx [Symbicort 160-4.5 Mcg Inhaler] Bumetanide [Bumex 1 mg tab] 1 mg PO BID #60 tablet 08/22/18 03/13/19 Unknown Rx Gabapentin [Neurontin] 100 mg PO Q8HR capsule 08/22/18 03/13/19 Unknown Rx Insulin Glargine [Lantus VIAL] 10 units SUB-Q QHS #100 units 08/22/18 03/13/19 Unknown Rx Ipratropium/Albuterol Sulfate 1 ampul IH Q6HR #120 ampul.neb 08/22/18 03/13/19 Unknown Rx [DUONEB *Not for PRN Use*] Lispro Insulin [HumaLOG] 1 dose SUB-Q ACHS PRN #100 units 08/22/18 03/13/19 Unknown Rx Furosemide [Lasix TAB] 40 mg PO BID 03/13/19 03/13/19 Unknown History oxyCODONE /ACETAMINOPHEN [Percocet 1 tab PO Q6HR PRN 03/13/19 03/13/19 Unknown History 5/325 mg] traZODone [Desyrel] 100 mg PO QHS 03/15/19 03/15/19 03/15/19 21:05 History 100 Prednisone [predniSONE 10 mg 10 mg PO .TAPER #1 tab.ds.pk 03/17/19 Unknown Rx (6-Day Pack, 21 Tabs)] Amoxicillin/Potassium Clav 1 each PO BID #10 tablet 06/30/19 Unknown Rx [Augmentin 875-125 Tablet] Ipratropium/Albuterol Sulfate 1 ampul IH BIDRT #120 ampul.neb 06/30/19 Unknown Rx [DUONEB *Not for PRN Use*] Active Meds: Active Medications Acetaminophen (Tylenol) 650 mg PO Q4H PRN PRN Reason: Non Cardiac Pain or Temp>100.5 Albuterol (Proventil) 2.5 mg IH Q4HRT PRN PRN Reason: Shortness Of Breath Albuterol/Ipratropium (Duoneb *Not For Prn Use*) 1 ampul IH BIDRT [facility] Last Admin: 06/30/19 08:55 Dose: 1 ampul Documented by: Amlodipine Besylate (Norvasc) 10 mg PO QDAY [facility] Last Admin: 06/30/19 10:40 Dose: 10 mg Documented by: Arformoterol Tartrate (Brovana Nebu) 15 mcg IH Q12HRT [facility] Atorvastatin Calcium (Lipitor) 80 mg PO QHS [facility] Budesonide (Pulmicort) 1 mg IH Q12HRT [facility] Bumetanide (Bumex) 1 mg PO BID [facility] Last Admin: 06/30/19 10:39 Dose: 1 mg Documented by: Carvedilol (Coreg) 6.25 mg PO BID [facility] Last Admin: 06/30/19 10:40 Dose: 6.25 mg Documented by: Cyclobenzaprine HCl (Flexeril) 10 mg PO Q8H PRN PRN Reason: Spasms Furosemide (Lasix) 40 mg IV 0600,1800 [facility] Last Admin: 06/30/19 05:03 Dose: 40 mg Documented by: Gabapentin (Neurontin) 100 mg PO Q8HR [facility] Insulin Glargine (Lantus) 10 units SUB-Q QHS [facility] Isosorbide Mononitrate (Imdur) 60 mg PO QDAY [facility] Last Admin: 06/30/19 10:40 Dose: 60 mg Documented by: Ondansetron HCl (Zofran) 4 mg IV Q8H PRN PRN Reason: Nausea And Vomiting Oxycodone/Acetaminophen (Percocet 5/325) 1 tab PO Q6H PRN PRN Reason: Pain, Moderate (4-6) Last Admin: 06/30/19 10:45 Dose: 1 tab Documented by: Sodium Chloride (Sodium Chloride Flush Syringe 10 Ml) 10 ml IV BID [facility] Last Admin: 06/29/19 22:58 Dose: 10 ml Documented by: Sodium Chloride (Sodium Chloride Flush Syringe 10 Ml) 10 ml IV PRN PRN PRN Reason: LINE FLUSH Tamsulosin HCl (Flomax) 0.4 mg PO QPM [facility] Trazodone HCl (Desyrel) 100 mg PO QHS [facility] Physical Examination Vital Signs Resp 10 L 06/29/19 14:13 General appearance: no acute distress, obese HEENT: Positive: PERRL Neck: Positive: trachea midline Cardiac: Positive: Reg Rate and Rhythm Lungs: Positive: Decreased Breath Sounds Neuro: Positive: Grossly Intact Extremities: Absent: edema Results 06/29/19 15:03 06/30/19 05:25 Cardiac Enzymes 06/29/19 06/30/19 Range/Units 15:03 05:25 AST 12 (5-40) units/L CK-MB (CK-2) 2.0 (0.0-4.0) ng/mL Coagulation 06/29/19 Range/Units 15:03 PT 13.0 (12.2-14.9) Sec. INR 1.01 (0.87-1.13) APTT 26.3 (24.2-36.6) Sec. CBC 06/29/19 Range/Units 15:03 WBC 4.9 (4.5-11.0) K/mm3 RBC 4.61 (3.65-5.03) M/mm3 Hgb 13.5 (11.8-15.2) gm/dl Hct 41.8 (35.5-45.6) % Plt Count 232 (140-440) K/mm3 Lymph # 1.2 (1.2-5.4) K/mm3 [place] # 0.6 (0.0-0.8) K/mm3 Eos # 0.2 (0.0-0.4) K/mm3 Baso # 0.0 (0.0-0.1) K/mm3 Comprehensive Metabolic Panel 06/29/19 06/30/19 Range/Units 15:03 05:25 Sodium 141 143 (137-145) mmol/L Potassium 3.8 4.0 (3.6-5.0) mmol/L Chloride 104.8 101.9 (98-107) mmol/L Carbon Dioxide 27 29 (22-30) mmol/L BUN 21 H 18 (9-20) mg/dL Creatinine 1.1 1.0 (0.8-1.5) mg/dL Glucose 113 H 102 H (75-100) mg/dL Calcium 8.8 8.7 (8.4-10.2) mg/dL AST 12 (5-40) units/L ALT 9 (7-56) units/L Alkaline Phosphatase 86 (35-129) units/L Total Protein 6.8 (6.3-8.2) g/dL Albumin 3.6 L (3.9-5) g/dL Assessment and Plan Shortness of breath likely due to his COPD, sleep apnea and morbid obesity. chest x-ray reveals no interstitial edema or heart failure. Hypertension Diabetes Normal stress thallium test 06/2018. Normal LVEF, 55-60% by an echocardiogram 02/2019. Conservative cardiac management. <NANDA CRISTOBAL - Last Filed: 07/01/19 22:11> Physical Examination Vital Signs Resp 10 L 06/29/19 14:13 Results 06/29/19 15:03 06/30/19 05:25 Assessment and Plan I have seen and evaluated the patient and agree with the assessment and plan. Normal stress thallium test 06/2018. Normal LVEF, 55-60% by an echocardiogram 02/2019. No further cardiac evaluation required at this time. Recommend medical therapy for treatment of pulmonary issues.
[2019-06-30] MEDS ORDERED: DUONEB *Not for PRN Use IH SCH (12:00)
[2019-06-30] MEDS ORDERED: NEURONTIN PO SCH (14:00)
--- NOTE | 2019-06-30 14:05 | Progress Note ---
Assessment and Plan Assessment and plan: 64 YO Male with MO, Systolic CHF, COPD, HLD, Chronic Pain, HTN, DJD, Peripheral Neuropathy,Nephrolithiasis, NANDO on CPAP presents to ED for evaluation. Pt states that he has experienced shortness of breath and chest discomfort over the past 3 days with worsening symptoms over the past 2 days. Pt acknowledges persistently worsening symptoms that are not relieved with increased use of nebulizer therapy. PT acknowledges Orthopnea/PND, dypsnea on exertion, dypsnea at rest, decreased exercise tolerance. Pt denies fever, chills, CP, Palpitations, NVD, productive cough, hemoptysis, unilateral leg swelling, calf pain, prolonged travel/immobility, unintentional weight gain. EMS notified, and upon arrival the patient found to be in distress. Pt transported to [facility] by family for further care and evaluation. Pt seen and evaluated in ED and found to have CHF Decompensation complicated by Acute Respiratory Failure, Obesity Hypoventilation. Pt treated with supplemental oxygen, nebulizer therapy and diuresis with improvement in symptoms. Pt admitted to telemetry, and initiated on CHF protocol. Cardiology consulted in ED. Prior admission on 03/13/19 reviewed. Pt requests double meal portions. All listed medication reconciled at time of admission. (1) CHF (congestive heart failure) Current Visit: Yes Status: Acute Qualifiers: Heart failure chronicity: acute on chronic Plan to address problem: Admit to Telemetry, Cardiology consulted, Echo from 03/14 reviewed, diuresis, strict I/O, daily weight, monitor uop q shift, supplemental oxygen, nebulizer therapy, pulse oximetry,Chest X ray, (2) Acute respiratory failure Current Visit: Yes Status: Acute Qualifiers: Respiratory failure complication: hypoxia Qualified Code(s): J96.01 - Acute respiratory failure with hypoxia Plan to address problem: Supplemental oxygen, nebulizer therapy, pulse oximetry, NIPPV as clinically indicated, chest x ray (3) Obesity hypoventilation syndrome Current Visit: Yes Status: Acute Plan to address problem: Supplemental oxygen, nebulizer therapy, balanced diet, increased activity at discharge, outpatient bariatric surgery evaluation. (4) Diabetes Current Visit: Yes Status: Acute Plan to address problem: ADA diet, insulin, accu check, hypoglycemia protocol (5) HLD (hyperlipidemia) Current Visit: No Status: Acute Qualifiers: Hyperlipidemia type: mixed hyperlipidemia Qualified Code(s): E78.2 - Mixed hyperlipidemia Plan to address problem: Statin therapy, low fat, low cholesterol diet, (6) HTN (hypertension) Current Visit: No Status: Acute Qualifiers: Hypertension type: essential hypertension Qualified Code(s): I10 - Essential (primary) hypertension Plan to address problem: Monitor bp q shift, continue medical management, (7) DVT prophylaxis Current Visit: No Status: Acute Plan to address problem: SCD to BLW while in bed, early ambulation PRN Hospitalist Physical - Constitutional Vitals: Temp Pulse Resp BP Pulse Ox 98.1 F 79 20 128/71 96 06/30/19 10:13 06/30/19 10:13 06/30/19 10:45 06/30/19 10:13 06/30/19 10:13 General appearance: Present: no acute distress, obese Results - Labs CBC & Chem 7: 06/29/19 15:03 06/30/19 05:25 Labs: Laboratory Last Values WBC 4.9 K/mm3 (4.5-11.0) 06/29/19 15:03 RBC 4.61 M/mm3 (3.65-5.03) 06/29/19 15:03 Hgb 13.5 gm/dl (11.8-15.2) 06/29/19 15:03 Hct 41.8 % (35.5-45.6) 06/29/19 15:03 MCV 91 fl (84-94) 06/29/19 15:03 MCH 29 pg (28-32) 06/29/19 15:03 MCHC 32 % (32-34) 06/29/19 15:03 RDW 16.1 % (13.2-15.2) H 06/29/19 15:03 Plt Count 232 K/mm3 (140-440) 06/29/19 15:03 Lymph % (Auto) 23.7 % (13.4-35.0) 06/29/19 15:03 [place] % (Auto) 12.3 % (0.0-7.3) H 06/29/19 15:03 Eos % (Auto) 3.4 % (0.0-4.3) 06/29/19 15:03 Baso % (Auto) 1.0 % (0.0-1.8) 06/29/19 15:03 Lymph # 1.2 K/mm3 (1.2-5.4) 06/29/19 15:03 [place] # 0.6 K/mm3 (0.0-0.8) 06/29/19 15:03 Eos # 0.2 K/mm3 (0.0-0.4) 06/29/19 15:03 Baso # 0.0 K/mm3 (0.0-0.1) 06/29/19 15:03 Seg Neutrophils % 59.6 % (40.0-70.0) 06/29/19 15:03 Seg Neutrophils # 2.9 K/mm3 (1.8-7.7) 06/29/19 15:03 PT 13.0 Sec. (12.2-14.9) 06/29/19 15:03 INR 1.01 (0.87-1.13) 06/29/19 15:03 APTT 26.3 Sec. (24.2-36.6) 06/29/19 15:03 Sodium 143 mmol/L (137-145) 06/30/19 05:25 Potassium 4.0 mmol/L (3.6-5.0) 06/30/19 05:25 Chloride 101.9 mmol/L (98-107) 06/30/19 05:25 Carbon Dioxide 29 mmol/L (22-30) 06/30/19 05:25 16 mmol/L 06/30/19 05:25 BUN 18 mg/dL (9-20) 06/30/19 05:25 1.0 mg/dL (0.8-1.5) 06/30/19 05:25 Estimated GFR > 60 ml/min 06/30/19 05:25 18 % 06/30/19 05:25 Glucose 102 mg/dL (75-100) H 06/30/19 05:25 POC Glucose 132 (70-105) H 06/30/19 12:48 Calcium 8.7 mg/dL (8.4-10.2) 06/30/19 05:25 0.30 mg/dL (0.1-1.2) 06/30/19 05:25 AST 12 units/L (5-40) 06/30/19 05:25 ALT 9 units/L (7-56) 06/30/19 05:25 86 units/L (35-129) 06/30/19 05:25 117 units/L (55-170) 06/29/19 15:03 CK-MB (CK-2) 2.0 ng/mL (0.0-4.0) 06/29/19 15:03 CK-MB (CK-2) Rel Index 1.7 (0-4) 06/29/19 15:03 < 0.010 ng/mL (0.00-0.029) 06/29/19 15:03 NT-Pro-B Natriuret Pep 32.07 pg/mL (0-900) 06/29/19 15:03 6.8 g/dL (6.3-8.2) 06/30/19 05:25 3.6 g/dL (3.9-5) L 06/30/19 05:25 1.1 % 06/30/19 05:25 Active Medications - Current Medications Current Medications: Generic Name Dose Route Start Last Admin Trade Name Freq PRN Reason Stop Dose Admin Acetaminophen 650 mg 06/30/19 08:30 Tylenol PO Q4H PRN Non Cardiac Pain or Temp>100.5 Albuterol 2.5 mg 06/29/19 17:02 Proventil IH Q4HRT PRN Shortness Of Breath Albuterol/Ipratropium 1 ampul 06/29/19 20:00 06/30/19 08:55 Duoneb *Not For Prn Use* 1 ampul BIDRT LIZZ Administration Amlodipine Besylate 10 mg 06/30/19 10:00 06/30/19 10:40 Norvasc PO 10 mg QDAY LIZZ Administration Arformoterol Tartrate 15 mcg 06/30/19 10:00 Brovana Nebu Q12HRT LIZZ Atorvastatin Calcium 80 mg 06/30/19 22:00 Lipitor PO QHS LIZZ Budesonide 1 mg 06/30/19 10:00 Pulmicort IH Q12HRT LIZZ Bumetanide 1 mg 06/30/19 10:00 06/30/19 10:39 Bumex PO 1 mg BID LIZZ Administration Carvedilol 6.25 mg 06/30/19 10:00 06/30/19 10:40 Coreg PO 6.25 mg BID LIZZ Administration Cyclobenzaprine HCl 10 mg 06/30/19 08:30 Flexeril PO Q8H PRN Spasms Furosemide 40 mg 06/29/19 18:00 06/30/19 05:03 Lasix IV 40 mg 0600,1800 LIZZ Administration Gabapentin 100 mg 06/30/19 14:00 Neurontin PO Q8HR LIZZ Insulin Glargine 10 units 06/30/19 22:00 Lantus SUB-Q QHS LIZZ Isosorbide Mononitrate 60 mg 06/30/19 10:00 06/30/19 10:40 Imdur PO 60 mg QDAY LIZZ Administration Ondansetron HCl 4 mg 06/29/19 17:02 Zofran IV Q8H PRN Nausea And Vomiting Oxycodone/Acetaminophen 1 tab 06/30/19 08:30 06/30/19 10:45 Percocet 5/325 PO 1 tab Q6H PRN Administration Pain, Moderate (4-6) Sodium Chloride 10 ml 06/29/19 22:00 06/29/19 22:58 Sodium Chloride Flush Syringe 10 Ml IV 10 ml BID LIZZ Administration Sodium Chloride 10 ml 06/29/19 17:02 Sodium Chloride Flush Syringe 10 Ml IV PRN PRN LINE FLUSH Tamsulosin HCl 0.4 mg 06/30/19 18:00 Flomax PO QPM LIZZ Trazodone HCl 100 mg 06/30/19 22:00 Desyrel PO QHS LIZZ Nutrition/Malnutrition Assess - Dietary Evaluation Nutrition/Malnutrition Findings: Nutrition Notes Start: 06/30/19 10:17 Freq: Status: Active Protocol: Document 06/30/19 10:18 RS (Rec: 06/30/19 11:38 RS [id number]) Co-Sign 06/30/19 10:18 LP Nutrition Notes Need for Assessment generated from: MD Order Initial or Follow up Assessment Current Diagnosis COPD,Hypertension,Heart Failure Other Pertinent Diagnosis Nephrolithiasis, DJD, peripheral neuropathy Current Diet Cardaic Consisent Carb Diet Labs/Tests Reviewed Pertinent Medications Zofran, Bumetanide, Lasix, Lantus Height 7 ft 2 in Weight 204.117 kg Usual Body Weight 204 kg [place] Body Weight (kg) 119.09 BMI 42.7 Intake Prior to Admission Excellent Weight Status Morbidly Obese Subjective/Other Information Pt requested double portions of food during meals, specifically protein. Dietitian stated that double portions would most likely be double vegetables and pt expressed disinterest. Pt claims he does not follow cardiac/consistent carb diet at home and eats/drinks what he wants. Pt resistent to diet change. Percent of energy/protein needs met: 100% Burn Absent Trauma Absent GI Symptoms None Food Allergy No Current % PO Good (75-100%) Minimum of two criteria No #1 Nutrition Diagnosis Limited adherence to nutrition -related recommendations Etiology verbal resistence for dietary change As Evidenced by Signs and Symptoms fluid retention from consuming excess fluids in relation to dz state, pt self report of eating what he wants at home Is patient on ventilator? No Is Patient Ambulatory and/or Out of Bed Yes REE-([place]. or-ambulatory/OOB) [ 4025.346 [id number]] Calculation Used for Recommendations Kcal/kg Additional Notes kcal needs: 11-14kcal/kg(ABW) 1780-2260kcal/day Protein: 0.8-1.0g/kg 95-120g Fluid: 1500-1900mL/day (CHF) Nutrition Intervention Change Diet Order: Continue diet Goal #1 Progress to follow cardiac/ consistent carb diet when discharged Revisit per MD consult or patient Sign Off request:
--- NOTE | 2019-06-30 14:06 | Discharge Summary ---
Providers - Providers Date of Admission: 06/29/19 17:02 Attending physician: WALESKA HUGHES MD 06/30/19 06:47 Consult to Physician [CONS] Routine Comment: Consulting Provider: NORBERTO TATUM Physician Instructions: Reason For Exam: CHF [facility] Hospital[facility] Reason for admission: SHORTNESS OF BREATH Condition: Stable Hospital course: 64 YO Male with MO, Systolic CHF, COPD, HLD, Chronic Pain, HTN, DJD, Peripheral Neuropathy,Nephrolithiasis, NANDO on CPAP presents to ED for evaluation. Pt states that he has experienced shortness of breath and chest discomfort over the past 3 days with worsening symptoms over the past 2 days. Pt acknowledges persistently worsening symptoms that are not relieved with increased use of nebulizer therapy. PT acknowledges Orthopnea/PND, dypsnea on exertion, dypsnea at rest, decreased exercise tolerance. Pt denies fever, chills, CP, Palpitations, NVD, productive cough, hemoptysis, unilateral leg swelling, calf pain, prolonged travel/immobility, unintentional weight gain. EMS notified, and upon arrival the patient found to be in distress. Pt transported to [facility] by family for further care and evaluation. Pt seen and evaluated in ED and found to have CHF Decompensation complicated by Acute Respiratory Failure, Obesity Hypoventilation. Pt treated with supplemental oxygen, nebulizer therapy and diuresis with improvement in symptoms. Pt admitted to telemetry, and initiated on CHF protocol. Cardiology consulted in ED. Prior admission on 03/13/19 revfri. Pt requests double meal portions. All listed medication reconciled at time of admission. Normal stress thallium test 06/2018. Normal LVEF, 55-60% by an echocardiogram 02/2019. Conservative cardiac management. (1) CHF (congestive heart failure) -Diastolic dysfunction (2) Acute respiratory failure With hypoxia possible underlying COPD exacerbation (3) Obesity hypoventilation syndrome (4) Diabetes (5) HLD (hyperlipidemia) (6) HTN (hypertension) (7) Copd with exacerbation Disposition: DC/[place]-06 HOME UNDER HOME HL[facility] Time spent for discharge: 35 mins Core Measure Documentation - Palliative Care Palliative Care/ Comfort Measures: Not Applicable - Core Measures Any of the following diagnoses?: none Exam - Physical Exam Narrative exam: General appearance: Present: restful obese - EENT Eyes: Present: PERRL ENT: hearing intact, clear oral mucosa - Neck Neck: Present: supple, normal ROM - Respiratory Respiratory effort: normal Respiratory: bilateral: diminished, rhonchi - Cardiovascular Heart Sounds: Present: S1 & S2. Absent: rub, click - Extremities Extremities: pulses symmetrical Extremity abnormal: edema Peripheral Pulses: within normal limits - Abdominal General gastrointestinal: Present: soft, non-tender, non-distended, normal bowel sounds Male genitourinary: Present: normal - Integumentary Integumentary: Present: clear, warm, dry - Musculoskeletal Musculoskeletal: generalized weakness - Psychiatric Psychiatric: appropriate mood/affect, intact judgment & insight - Neurologic Neurologic: CNII-XII intact, moves all extremities - Constitutional Vitals: Temp Pulse Resp BP Pulse Ox 98.1 F 79 20 128/71 96 06/30/19 10:13 06/30/19 10:13 06/30/19 10:45 06/30/19 10:13 06/30/19 10:13 Plan Activity: advance as tolerated, fall precautions Diet: low fat, diabetic Special Instructions: record daily weights, record daily BP diary Follow up with: CELY NEGRETE MD [Primary Care Provider] - 3-5 Days NORBERTO TATUM MD [Staff Physician] - 7 Days LYSSA LONDON MD [Staff Physician] - 7 Days Forms: Work/School Release Form Prescriptions: Amoxicillin/Potassium Clav [Augmentin 875-125 Tablet] 1 each PO BID #10 tablet Ipratropium/Albuterol Sulfate [DUONEB *Not for PRN Use*] 1 ampul IH BIDRT #120 ampul.neb Other Discharge Orders: Nebulizer (Amb) Location: None Selected
[2019-06-30] MEDS ORDERED: SOLU-Medrol IV ONE (15:39)
[2019-06-30] MEDS: SODIUM CHLORIDE FLUSH SYRINGE 10 ML IV SCH (15:51)
[2019-06-30] MEDS ORDERED: FLOMAX PO SCH (18:00)
[2019-06-30] MEDS ORDERED: LANTUS SUB-Q SCH (22:00)
[2019-06-30] MEDS ORDERED: DESYREL PO SCH (22:00)
[2019-06-30] MEDS ORDERED: NON-FORMULARY (Atorvastatin [Lipitor] 80 MG) PO SCH (22:00)
== END 2019-06-30 17:30 | disposition home health service (06) ==
LOC: ED 13:58 → INTOOBSV 17:02 → 4A 17:02
PROVIDERS: ADMIT Internal Medicine; ATTEND Internal Medicine
DX: I11.0 Hypertensive heart disease with heart failure (principal); I50.9 Heart failure, unspecified; J96.01 Acute respiratory failure with hypoxia; E78.5 Hyperlipidemia, unspecified; M19.90 Unspecified osteoarthritis, unspecified site; J44.9 Chronic obstructive pulmonary disease, unspecified; G89.29 Other chronic pain; G47.33 Obstructive sleep apnea (adult) (pediatric); E11.43 Type 2 diabetes mellitus with diabetic autonomic (poly)neuropathy; E66.2 Morbid (severe) obesity with alveolar hypoventilation; Z68.41 Body mass index [BMI] 40.0-44.9, adult
CPT/HCPCS: 36415; 71045; 78582; 80048; 80053; 82550; 82553; 82962; 83880; 84484; 85025; 85610; 85730; 93005; 93010; 94640; 94760; 96374; 96375; 99284; A9540; A9558; G0378; J1940; J2405; J2920; J3010; J1815

== ENCOUNTER 2021-12-15 19:46 | Inpatient (IN) | payer MEDICARE ==
[2021-12-15] MEDS ORDERED: fentaNYL 100 MCG/2 ML INJ IV ONE (21:14)
[2021-12-15] MEDS ORDERED: ONDANSETRON 4 MG/2 ML INJ IV ONE (21:14)
--- NOTE | 2021-12-15 21:26 | Emergency Department Report ---
ED Shortness of Breath HPI - General Chief Complaint: Dyspnea/Respdistress Stated Complaint: MURPHY,GI BLEED Time Seen by Provider: 12/15/21 20:26 Source: patient, EMS Mode of arrival: Stretcher Limitations: No Limitations - History of Present Illness Initial Comments: Patient is 66 years old morbidly obese male with history of congestive heart failure, COPD, obstructive sleep apnea, noncompliant with his CPAP. Patient presented to the ER via EMS complaining of right chest pain has been going on for few days. Patient stated that he was discharged from [facility] the day before after he was diagnosed with pneumonia. Patient stated that he just spent overni ght in the sending home. Patient also mentioned that he had 1 bowel movement of bloody diarrhea. He denied any left-sided chest pain. He denied any fever or chills. MD Complaint: shortness of breath -: days(s) Severity: moderate Known History Of: COPD, congestive heart failure - Related Data Home Medications Medication Instructions Recorded Confirmed Last Taken Atorvastatin [Lipitor] 80 mg PO QHS 08/10/18 10/16/21 10/12/21 Cyclobenzaprine [Flexeril 10 MG 10 mg PO Q8H PRN 08/10/18 10/16/21 10/12/21 TAB] Furosemide [Lasix TAB] 40 mg PO QDAY 03/13/19 10/16/21 10/12/21 Albuterol Sulfate [Proventil Hfa] 2 puff IH Q46H PRN 10/16/21 10/16/21 10/13/21 Gabapentin 300 mg PO TID 10/16/21 10/16/21 10/12/21 Oxycodone HCl/Acetaminophen 1 tab PO TID 10/16/21 10/16/21 10/12/21 [Percocet 7.5/325 mg] Trazodone HCl 150 mg PO QHS 10/16/21 10/16/21 10/12/21 lisinopriL [Lisinopril] 10 mg PO QDAY 10/16/21 10/16/21 10/12/21 metFORMIN [Glucophage] 500 mg PO QDAY 10/16/21 10/16/21 10/12/21 Previous Rx's Medication Instructions Recorded Last Taken Type Carvedilol [Coreg] 6.25 mg PO BID 30 Days tablet 08/14/18 10/12/21 Rx ISOSORBIDE MONOnitrate [Imdur ER] 60 mg PO QDAY #30 tablet 08/14/18 10/12/21 Rx Tamsulosin HCl [Flomax] 0.4 mg PO QPM #30 capsule 08/14/18 10/12/21 Rx Budesonide/Formoterol Fumarate 1 puff IH Q12H #1 hfa.aer.ad 08/22/18 10/12/21 Rx [Symbicort 160-4.5 Mcg Inhaler] Ipratropium/Albuterol Sulfate 1 ampul IH Q6HR #120 ampul.neb 08/22/18 10/13/21 Rx [DUONEB *Not for PRN Use*] Amoxicillin/K Clav Tab [Augmentin 1 each PO BID #14 tablet 10/17/21 Unknown Rx 875MG TAB] Gabapentin 100 mg PO Q8HR capsule 10/17/21 Unknown Rx Insulin Glargine [Lantus VIAL] 10 units SUB-Q QHS units 10/17/21 Unknown Rx Ipratropium/Albuterol Sulfate 1 ampul IH BIDRT ampul.neb 10/17/21 Unknown Rx [DUONEB *Not for PRN Use*] amLODIPine 10 mg PO QDAY #30 tablet 10/17/21 Unknown Rx Allergies Allergy/AdvReac Type Severity Reaction Status Date / Time haloperidol [From Haldol] Allergy lock jaw Verified 10/16/21 08:40 morphine Allergy weird Verified 10/16/21 08:40 feeling tramadol Allergy Rash Verified 10/16/21 08:40 ED Review of Systems ROS: Stated complaint: MURPHY,GI BLEED Other details as noted in HPI Comment: All other systems reviewed and negative Constitutional: denies: chills, fever Respiratory: cough, shortness of breath, SOB with exertion, SOB at rest Cardiovascular: chest pain. denies: palpitations, dyspnea on exertion Gastrointestinal: abdominal pain, hematochezia. denies: nausea, vomiting Musculoskeletal: denies: back pain Neurological: denies: headache, weakness, numbness, paresthesias, confusion ED Past Medical Hx - Past Medical History Previous Medical History?: Yes Hx Hypertension: Yes Hx CVA: No Hx Heart Attack/AMI: No Hx Congestive Heart Failure: Yes Hx Diabetes: Yes Hx Deep Vein Thrombosis: No Hx Pulmonary Embolism: No Hx GERD: No Hx Liver Disease: No Hx Renal Disease: No Hx Sickle Cell Disease: No Hx Arthritis: Yes (Lt. hip) Hx Headaches / Migraines: No Hx Seizures: No Hx Kidney Stones: No Hx Psychiatric Treatment: No Hx Asthma: No Hx COPD: Yes Hx Tuberculosis: No Hx Dementia: No Hx HIV: No Additional medical history: neuropathy. DJD - Surgical History Past Surgical History?: Yes Hx Open Heart Surgery: No Hx Pacemaker: No Hx Internal Defibrillator: No Hx Cholecystectomy: No Hx Appendectomy: No Hx Breast Surgery: No - Social History Smoking Status: Former Smoker - Medications Home Medications: Home Medications Medication Instructions Recorded Confirmed Last Taken Type Atorvastatin [Lipitor] 80 mg PO QHS 08/10/18 10/16/21 10/12/21 History Cyclobenzaprine [Flexeril 10 MG 10 mg PO Q8H PRN 08/10/18 10/16/21 10/12/21 History TAB] Carvedilol [Coreg] 6.25 mg PO BID 30 Days tablet 08/14/18 10/16/21 10/12/21 Rx ISOSORBIDE MONOnitrate [Imdur ER] 60 mg PO QDAY #30 tablet 08/14/18 10/16/21 10/12/21 Rx Tamsulosin HCl [Flomax] 0.4 mg PO QPM #30 capsule 08/14/18 10/16/21 10/12/21 Rx Budesonide/Formoterol Fumarate 1 puff IH Q12H #1 hfa.aer.ad 08/22/18 10/16/21 10/12/21 Rx [Symbicort 160-4.5 Mcg Inhaler] Ipratropium/Albuterol Sulfate 1 ampul IH Q6HR #120 ampul.neb 08/22/18 10/16/21 10/13/21 Rx [DUONEB *Not for PRN Use*] Furosemide [Lasix TAB] 40 mg PO QDAY 03/13/19 10/16/21 10/12/21 History Albuterol Sulfate [Proventil Hfa] 2 puff IH Q46H PRN 10/16/21 10/16/21 10/13/21 History Gabapentin 300 mg PO TID 10/16/21 10/16/21 10/12/21 History Oxycodone HCl/Acetaminophen 1 tab PO TID 10/16/21 10/16/21 10/12/21 History [Percocet 7.5/325 mg] Trazodone HCl 150 mg PO QHS 10/16/21 10/16/21 10/12/21 History lisinopriL [Lisinopril] 10 mg PO QDAY 10/16/21 10/16/21 10/12/21 History metFORMIN [Glucophage] 500 mg PO QDAY 10/16/21 10/16/21 10/12/21 History Amoxicillin/K Clav Tab [Augmentin 1 each PO BID #14 tablet 10/17/21 Unknown Rx 875MG TAB] Gabapentin 100 mg PO Q8HR capsule 10/17/21 Unknown Rx Insulin Glargine [Lantus VIAL] 10 units SUB-Q QHS units 10/17/21 Unknown Rx Ipratropium/Albuterol Sulfate 1 ampul IH BIDRT ampul.neb 10/17/21 Unknown Rx [DUONEB *Not for PRN Use*] amLODIPine 10 mg PO QDAY #30 tablet 10/17/21 Unknown Rx ED Physical Exam - General Limitations: No Limitations General appearance: alert, in no apparent distress - Head Head exam: Present: atraumatic, normocephalic, normal inspection - Eye Eye exam: Present: normal appearance, PERRL - ENT ENT exam: Present: normal exam, normal orophraynx, mucous membranes moist - Neck Neck exam: Present: normal inspection, full ROM. Absent: tenderness, meningismus - Respiratory Respiratory exam: Present: normal lung sounds bilaterally. Absent: respiratory distress, wheezes, rales, rhonchi - Cardiovascular Cardiovascular Exam: Present: regular rate, normal rhythm, normal heart sounds - GI/Abdominal GI/Abdominal exam: Present: soft, normal bowel sounds. Absent: distended, tenderness, guarding, rebound, rigid, organomegaly, mass, bruit, pulsatile mass, hernia - Extremities Exam Extremities exam: Present: normal inspection, full ROM, normal capillary refill - Back Exam Back exam: Present: normal inspection, full ROM. Absent: CVA tenderness (R), CVA tenderness (L) - Neurological Exam Neurological exam: Present: alert, oriented X3, CN II-XII intact - Psychiatric Psychiatric exam: Present: normal mood - Skin Skin exam: Present: warm, intact, normal color ED Course Vital Signs 12/15/21 12/15/21 21:38 21:41 Temperature 98.7 F Pulse Rate 79 Respiratory 18 13 Rate Blood Pressure 118/70 [Left] O2 Sat by Pulse 95 Oximetry ED Medical Decision Making - Lab Data Result diagrams: 12/15/21 21:31 12/15/21 21:31 - Radiology Data Radiology results: report reviewed - Medical Decision Making Patient is 66 years old morbidly obese male with history of congestive heart failure, COPD, obstructive sleep apnea, noncompliant with his CPAP. Patient presented to the ER via EMS complaining of right chest pain has been going on for few days. Patient stated that he was discharged from [facility] the day before after he was diagnosed with pneumonia. Patient stated that he just spent overnight in the sending home. Patient also mentioned that he had 1 bowel movem ent of bloody diarrhea. He denied any left-sided chest pain. He denied any fever or chills. Labs reviewed and is unremarkable. Chest x-ray showed bilateral pneumonia. Patient received vancomycin and cefepime. Patient also received Decadron. I discussed the patient with Dr. Carmona, he agreed to admit the patient to medical service for further management. Critical care attestation.: If time is entered above; I have spent that time in minutes in the direct care of this critically ill patient, excluding procedure time. ED Disposition Clinical Impression: Bilateral pneumonia, Suspected COVID-19 virus infection Disposition: ADMITTED INPATIENT Is pt being admited?: Yes Condition: Stable Instructions: Bacterial Pneumonia (ED)
--- NOTE | 2021-12-15 22:00 | XRay Report ---
CHEST 1 VIEW 12/15/2021 9:20 PM INDICATION / CLINICAL INFORMATION: Dyspnea. COMPARISON: 10/15/2021 FINDINGS: SUPPORT DEVICES: None. HEART / MEDIASTINUM: No significant abnormality. LUNGS / PLEURA: Mild bilateral interstitial/parenchymal disease both lower lung calixto. No pneumothor ax. ADDITIONAL FINDINGS: No significant additional findings. IMPRESSION: 1. Mild bibasilar interstitial/parenchymal disease could represent CHF or atypical Covid pneumonia. Signer Name: Anthony Fischer MD Signed: 12/15/2021 9:55 PM Workstation Name: [id number]
[2021-12-15 22:28] LABS: BUN/Creatinine Ratio 18; Basophils % (Auto) 0.4 % (0.0-1.8); Blood Urea Nitrogen 23 mg/dL (9-20); Calcium 9.3 mg/dL (8.4-10.2); Eosinophils # (Auto) 0.1 K/mm3 (0.0-0.4); Eosinophils % (Auto) 2.4 % (0.0-4.3); Hematocrit 39.8 % (35.5-45.6); Hemoglobin 13.1 gm/dl (11.8-15.2); Hemolysis Index 8; INR 0.89 (0.87-1.13); Lymphocytes # (Auto) 0.8 K/mm3 (1.2-5.4); Lymphocytes % (Auto) 13.7 % (13.4-35.0); Mean Corpuscular HGB Conc 33 % (32-34); Mean Corpuscular Volume 92 fl (84-94); Monocytes # (Auto) 0.2 K/mm3 (0.0-0.8); Monocytes % (Auto) 3.8 % (0.0-7.3); Platelet Count 341 K/mm3 (140-440); Red Blood Count 4.34 M/mm3 (3.65-5.03); Red Cell Distribution Width 15.7 % (13.2-15.2)
[2021-12-15] MEDS ORDERED: VANCOMYCIN/NS 1 GM/250 ML 1 GM/250 ML BAG IV ONE (22:59)
[2021-12-15] MEDS ORDERED: CEFEPIME/NS 1 GM/100 ML 1 GM/100 ML BAG IV ONE (23:04)
[2021-12-16] MEDS ORDERED: ACETAMINOPHEN 325 MG TAB PO PRN (01:04)
[2021-12-16] MEDS ORDERED: MORPHINE 2 MG/1 ML INJ IV PRN (01:04)
[2021-12-16] MEDS ORDERED: ONDANSETRON 4 MG/2 ML INJ IV PRN (01:04)
[2021-12-16] MEDS ORDERED: MORPHINE 4 MG/1 ML INJ IV PRN (01:04)
--- NOTE | 2021-12-16 01:17 | History and Physical Report ---
History of Present Illness Date of examination: 12/16/21 Date of admission: 12/16/2021 Chief complaint: Shortness of Breath History of present illness: 66-year-old morbidly obese male with known history of CHF, COPD, obstructive sleep apnea presenting to the emergency room today via EMS for right-sided chest pain which has been ongoing for the past few days. Patient also indicates that he has been having some shortness of breath. He was just discharged from [facility] about 3 days ago having been diagnosed with pneumonia but states he has not been feeling quite well. Denies any fever or chills, no headache or dizziness and no diaphoresis. He denies any nausea vomiting and no abdominal pain. Patient denies any sick contacts and no recent travel. Denies any contact with anyone with COVID-19. Patient states he has been fully vaccinated against COVI D-19 with the [employer] vaccine. He recently got his booster shot of the Covid 19 vaccination. Work-up in the emergency room today, chest x-ray reveals mild bibasilar interstitial/parenchymal disease could represent CHF or atypical Covid pneumonia. Labs were unremarkable. Patient has been started on empiric IV antibiotics. Past History Past Medical History: arthritis, COPD, diabetes, heart failure, hypertension Past Surgical History: No surgical history Social history: smoking (Former Smoker) Family history: no significant family history Medications and Allergies Allergies Allergy/AdvReac Type Severity Reaction Status Date / Time haloperidol [From Haldol] Allergy lock jaw Verified 10/16/21 08:40 morphine Allergy weird Verified 10/16/21 08:40 feeling tramadol Allergy Rash Verified 10/16/21 08:40 Home Medications Medication Instructions Recorded Confirmed Last Taken Type Atorvastatin [Lipitor] 80 mg PO QHS 08/10/18 12/16/21 12/14/21 History Carvedilol [Coreg] 6.25 mg PO BID 30 Days tablet 08/14/18 12/16/21 12/14/21 Rx ISOSORBIDE MONOnitrate [Imdur ER] 60 mg PO QDAY #30 tablet 08/14/18 12/16/21 12/14/21 Rx Tamsulosin HCl [Flomax] 0.4 mg PO QPM #30 capsule 08/14/18 12/16/21 12/14/21 Rx Budesonide/Formoterol Fumarate 1 puff IH Q12H #1 hfa.aer.ad 08/22/18 12/16/21 12/14/21 Rx [Symbicort 160-4.5 Mcg Inhaler] Ipratropium/Albuterol Sulfate 1 ampul IH Q6HR #120 ampul.neb 08/22/18 12/16/21 12/14/21 Rx [DUONEB *Not for PRN Use*] Furosemide [Lasix TAB] 40 mg PO QDAY 03/13/19 12/16/21 12/14/21 History Albuterol Sulfate [Proventil Hfa] 2 puff IH Q46H PRN 10/16/21 12/16/21 12/14/21 History Gabapentin 300 mg PO TID 10/16/21 12/16/21 12/14/21 History Oxycodone HCl/Acetaminophen 1 tab PO TID 10/16/21 12/16/21 12/14/21 History [Percocet 7.5/325 mg] Trazodone HCl 150 mg PO QHS 10/16/21 12/16/21 12/14/21 History lisinopriL [Lisinopril] 10 mg PO QDAY 10/16/21 12/16/21 12/14/21 History metFORMIN [Glucophage] 500 mg PO QDAY 10/16/21 12/16/21 12/14/21 History Active Meds: Active Medications Acetaminophen (Acetaminophen 325 Mg Tab) 650 mg PO Q4H PRN PRN Reason: Pain MILD(1-3)/Fever >100.5/[place] Fentanyl (Fentanyl 100 Mcg/2 Ml Inj) 25 mcg IV ONCE ONE Stop: 12/16/21 02:00 Cefepime HCl (Cefepime/Ns 2 Gm/100 Ml) 2 gm in 100 mls @ 200 mls/hr IV Q8H LIZZ; Protocol Levofloxacin/Dextrose (Levaquin 750mg/150ml) 750 mg in 150 mls @ 100 mls/hr IV Q24H LIZZ; Protocol Morphine Sulfate (Morphine 2 Mg/1 Ml Inj) 2 mg IV Q4H PRN PRN Reason: Pain, Moderate (4-6) Morphine Sulfate (Morphine 4 Mg/1 Ml Inj) 4 mg IV Q4H PRN PRN Reason: Pain , Severe (7-10) Ondansetron HCl (Ondansetron 4 Mg/2 Ml Inj) 4 mg IV Q8H PRN PRN Reason: Nausea And Vomiting Sodium Chloride (Sodium Chloride 0.9% 10 Ml Flush Syringe) 10 ml IV BID LIZZ Sodium Chloride (Sodium Chloride 0.9% 10 Ml Flush Syringe) 10 ml IV PRN PRN PRN Reason: LINE FLUSH Review of Systems Constitutional: no fever, no chills Ears, nose, mouth and throat: no nasal congestion, no sore throat Cardiovascular: no chest pain, no palpitations Respiratory: shortness of breath, no cough Gastrointestinal: no abdominal pain, no nausea, no vomiting, no diarrhea Genitourinary Male: no dysuria, no hematuria, no nocturia Musculoskeletal: no neck pain, no low back pain Integumentary: no rash, no pruritis Neurological: no headaches, no confusion Psychiatric: no anxiety, no depression Endocrine: no polyphagia, no polydipsia, no polyuria, no nocturia Exam - Constitutional Vitals: Temp Pulse Resp BP Pulse Ox 98.7 F 79 13 118/70 95 12/15/21 21:41 12/15/21 21:41 12/15/21 21:41 12/15/21 21:41 12/15/21 21:41 General appearance: Present: no acute distress, well-nourished, obese - EENT Eyes: Present: PERRL, EOM intact. Absent: scleral icterus ENT: hearing intact, clear oral mucosa, dentition normal - Neck Neck: Present: supple, normal ROM - Respiratory Respiratory effort: normal Respiratory: bilateral: diminished - Cardiovascular Rhythm: regular Heart Sounds: Present: S1 & S2. Absent: gallop, systolic murmur, diastolic murmur, rub, click - Extremities Extremities: no ischemia, pulses intact, pulses symmetrical, No edema, normal temperature, normal color, Full ROM Peripheral Pulses: within normal limits - Abdominal General gastrointestinal: Present: soft, non-tender, non-distended, normal bowel sounds. Absent: mass - Integumentary Integumentary: Present: clear, warm, dry. Absent: rash - Musculoskeletal Musculoskeletal: strength equal bilaterally - Psychiatric Psychiatric: appropriate mood/affect, intact judgment & insight, memory intact, cooperative - Neurologic Neurologic: CNII-XII intact, no focal deficits, moves all extremities HEART Score - HEART Score Troponin: Troponin T < 0.010 ng/mL (0.00-0.029) 12/16/21 00:10 Results - Labs CBC & Chem 7: 12/15/21 21:31 12/15/21 21:31 Labs: Abnormal lab results 12/15/21 12/15/21 12/15/21 Range/Units 21:31 21:31 21:31 RDW 15.7 H (13.2-15.2) % Lymph # (Auto) 0.8 L (1.2-5.4) K/mm3 Seg Neutrophils % 80.6 H (40.0-70.0) % BUN 23 H (9-20) mg/dL Glucose 116 H (75-100) mg/dL Lactic Acid 0.60 L (0.7-2.0) mmol/L Assessment and Plan - Patient Problems (1) Bilateral pneumonia Current Visit: Yes Status: Acute Plan to address problem: Patient placed on empiric IV antibiotics. We will await culture results. (2) Suspected COVID-19 virus infection Current Visit: Yes Status: Acute Plan to address problem: Will await COVID-19 testing. Consult placed to infectious disease for evaluation. (3) Acute respiratory failure Current Visit: No Status: Acute Qualifiers: Plan to address problem: Secondary to the underlying pneumonia. We will keep O2 saturation greater or equal to 92%. (4) Diabetes Current Visit: No Status: Acute Plan to address problem: Patient placed on sliding scale insulin. We will monitor Accu-Cheks closely. (5) DVT prophylaxis Current Visit: No Status: Acute Plan to address problem: Patient placed on subcutaneous heparin. (6) Full code status Current Visit: Yes Status: Acute Plan to address problem: Patient is full code.
[2021-12-16] MEDS ORDERED: fentaNYL 100 MCG/2 ML INJ IV ONE (01:59)
[2021-12-16] MEDS ORDERED: IPRATROPIUM/ALBUTEROL SULFATE 3 ML AMPUL.NEB IH ONE ×2 (04:15→12:45)
[2021-12-16] MEDS ORDERED: oxyCODONE /ACETAMINOPHEN 5-325MG TAB PO ONE (04:15)
[2021-12-16] MEDS ORDERED: DEXTROSE 10% *Hypoglycemia IV PRN (06:39)
--- NOTE | 2021-12-16 07:39 | Event Note ---
Date: 12/16/21 This is a follow-up from an admission earlier this morning. No new issues since admission. Chart reviewed. We will follow-up Covid PCR testing. Continue antibiotics and follow-up procalcitonin levels. Will discontinue antibiotics if Covid PCR positive and procalcitonin negative. Total time equals 32 minutes with greater than 50% spent on coordination of care and counseling
[2021-12-16 07:53] LABS: C-Reactive Protein 0.6 mg/dL (0.00-1.30)
[2021-12-16] MEDS: INSULIN LISPRO 100 UNIT/ML SUB-Q SCH ×4 (08:28→21:42)
[2021-12-16] MEDS: CEFEPIME/NS 2 GM/100 ML 2 GM/100 ML BAG IV SCH ×3 (08:28→23:44)
[2021-12-16] MEDS ORDERED: IPRATROPIUM/ALBUTEROL SULFATE 3 ML AMPUL.NEB IH SCH ×2 (14:00→20:00)
[2021-12-16] MEDS ORDERED: FUROSEMIDE 40 MG TAB PO SCH (17:00)
[2021-12-16] MEDS ORDERED: oxyCODONE /ACETAMINOPHEN 5-325MG TAB PO SCH (20:00)
[2021-12-16] MEDS ORDERED: NON-FORMULARY EACH (Oxycodone Hcl/Acetaminophen [Percocet 7.5/325 Mg] 1 EACH Tablet) PO SCH (20:00)
[2021-12-16] MEDS: IPRATROPIUM/ALBUTEROL SULFATE 3 ML AMPUL.NEB IH SCH (20:41)
[2021-12-16] MEDS: carvediloL 6.25 MG TAB PO SCH (21:23)
[2021-12-16] MEDS: GABAPENTIN 300 MG CAP PO SCH (21:24)
[2021-12-16] MEDS: traZODone 50 MG TAB PO SCH (21:24)
[2021-12-16] MEDS: oxyCODONE /ACETAMINOPHEN 5-325MG TAB PO SCH (21:25)
[2021-12-17] MEDS: oxyCODONE /ACETAMINOPHEN 5-325MG TAB PO SCH ×3 (05:13→21:45)
[2021-12-17] MEDS: INSULIN LISPRO 100 UNIT/ML SUB-Q SCH ×4 (08:36→22:39)
--- NOTE | 2021-12-17 08:46 | Progress Note ---
Assessment and Plan Assessment and plan: 66-year-old morbidly obese male with known history of CHF, COPD, obstructive sleep apnea presenting to the emergency room today via EMS for right-sided chest pain which has been ongoing for the past few days. Patient also indicated that he has been having some shortness of breath. He was just discharged from [facility] about 3 days ago after having been diagnosed with pneumonia but states he has not been feeling quite well. Chest x-ray reveals mild bibasilar interstitial/parenchymal disease that may represent CHF. Labs were unremarkable. Patient was started on empiric IV antibiotics for pneumonia. Bilateral pneumonia. Covid PCR testing negative Acute hypoxic respiratory failure Acute diastolic heart failure exacerbation. Patient with echocardiogram September 2021 which revealed mild diastolic dysfunction LVEF 60-65% Acute COPD exacerbation Obstructive sleep apnea/obesity hypoventilation syndrome Diabetes mellitus type 2 12/17/2021. Patient's chest x-ray reveals bilateral infiltrates that may be suggestive of bilateral pneumonia but the procalcitonin level and Covid PCR t esting were negative. We will continue empiric IV antibiotics for now until ID consultation. I suspect patient may have heart failure exacerbation/decompensation. 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 Patient had a recent hospitalization here in September 2021 with echocardiogram that revealed EF 60-65%. Patient appears to be on heart failure medication with Lasix 40 mg, Coreg 6.25 mg twice daily and lisinopril 10 mg daily. We will change Lasix to IV and consult cardiology for further evaluation. The acute hypoxic respiratory failure is multifactorial secondary to NANDO/OHS, CHF, COPD and +/-pneumonia. We will start Solu-Medrol 40 mg IV twice daily and continue breathing treatments. We will also check CTA of chest given elevated D-dimer. History Interval history: No new issues overnight Hospitalist Physical - Constitutional Vitals: Temp Pulse Resp BP Pulse Ox 97.5 F L 68 20 102/47 94 12/17/21 04:49 12/17/21 04:49 12/17/21 04:49 12/17/21 04:49 12/17/21 04:49 General appearance: Present: no acute distress, well-nourished, obese - EENT Eyes: Present: PERRL, EOM intact ENT: hearing intact, clear oral mucosa, dentition normal - Neck Neck: Present: supple, normal ROM - Respiratory Respiratory effort: normal Respiratory: bilateral: CTA - Cardiovascular Rhythm: regular Heart Sounds: Present: S1 & S2. Absent: gallop, rub - Extremities Extremities: no ischemia, No edema, Full ROM - Abdominal General gastrointestinal: soft, non-tender, non-distended, normal bowel sounds - Integumentary Integumentary: Present: clear, warm, dry - Neurologic Neurologic: CNII-XII intact, moves all extremities HEART Score - HEART Score Troponin: Troponin T < 0.010 ng/mL (0.00-0.029) 12/16/21 00:10 Results - Labs CBC & Chem 7: 12/15/21 21:31 12/16/21 06:55 Labs: Laboratory Last Values WBC 5.7 K/mm3 (4.5-11.0) 12/15/21 21:31 RBC 4.34 M/mm3 (3.65-5.03) 12/15/21 21:31 Hgb 13.1 gm/dl (11.8-15.2) 12/15/21 21:31 Hct 39.8 % (35.5-45.6) 12/15/21 21:31 MCV 92 fl (84-94) 12/15/21 21:31 MCH 30 pg (28-32) 12/15/21 21:31 MCHC 33 % (32-34) 12/15/21 21:31 RDW 15.7 % (13.2-15.2) H 12/15/21 21:31 Plt Count 341 K/mm3 (140-440) 12/15/21 21:31 Lymph % (Auto) 13.7 % (13.4-35.0) 12/15/21 21:31 Gregory % (Auto) 3.8 % (0.0-7.3) 12/15/21 21:31 Eos % (Auto) 2.4 % (0.0-4.3) 12/15/21 21:31 Baso % (Auto) 0.4 % (0.0-1.8) 12/15/21 21:31 Lymph # (Auto) 0.8 K/mm3 (1.2-5.4) L 12/15/21 21: Gregory # (Auto) 0.2 K/mm3 (0.0-0.8) 12/15/21 21:31 Eos # (Auto) 0.1 K/mm3 (0.0-0.4) 12/15/21 21:31 Baso # (Auto) 0.0 K/mm3 (0.0-0.1) 12/15/21 21:31 Seg Neutrophils % 80.6 % (40.0-70.0) H 12/15/21 21:31 Seg Neutrophils # 4.7 K/mm3 (1.8-7.7) 12/15/21 21:31 PT 13.1 Sec. (12.2-14.9) 12/15/21 21:31 INR 0.89 (0.87-1.13) 12/15/21 21:31 D-Dimer 245.33 ng/mlDDU (0-234) H 12/16/21 06:55 Sodium 138 mmol/L (137-145) 12/15/21 21:31 Potassium 4.1 mmol/L (3.6-5.0) 12/15/21 21:31 Chloride 101.5 mmol/L (98-107) 12/15/21 21:31 Carbon Dioxide 25 mmol/L (22-30) 12/15/21 21:31 Anion Gap 16 mmol/L 12/15/21 21:31 BUN 23 mg/dL (9-20) H 12/15/21 21:31 Creatinine 1.3 mg/dL (0.8-1.3) 12/15/21 21:31 Estimated GFR > 60 ml/min 12/15/21 21:31 BUN/Creatinine Ratio 18 % 12/15/21 21:31 Glucose 149 mg/dL (75-100) H 12/16/21 06:55 POC Glucose 130 mg/dL (70-105) H 12/17/21 08:01 Lactic Acid 0.60 mmol/L (0.7-2.0) L 12/15/21 21:31 Calcium 9.3 mg/dL (8.4-10.2) 12/15/21 21:31 Ferritin 148.8 ng/mL (30.0-300.0) 12/16/21 06:55 Lactate Dehydrogenase 143 units/L (91-180) 12/16/21 06:55 Troponin T < 0.010 ng/mL (0.00-0.029) 12/16/21 00:10 C-Reactive Protein 0.60 mg/dL (0.00-1.30) 12/16/21 06:55 NT-Pro-B Natriuret Pep 71.12 pg/mL (0-900) 12/15/21 21:31 Procalcitonin < 0.05 ng/mL (<0.15) 12/16/21 06:55 Coronavirus (PCR) Negative (Negative) 12/16/21 09:35 Blood Type O POSITIVE 12/15/21 21:31 Antibody Screen Negative 12/15/21 21:31 Microbiology: Microbiology 12/15/21 21:31 Peripheral/Venous Blood Culture - Preliminary NO GROWTH AFTER 24 HOURS 12/15/21 22:05 Peripheral/Venous Blood Culture - Preliminary NO GROWTH AFTER 24 HOURS Active Medications - Current Medications Current Medications: Generic Name Dose Route Start Last Admin Trade Name Freq PRN Reason Stop Dose Admin Acetaminophen 650 mg 12/16/21 01:04 Acetaminophen 325 Mg Tab PO Q4H PRN Pain MILD(1-3)/Fever >100.5/[place] Albuterol/Ipratropium 1 ampul 12/16/21 20:00 12/16/21 20:41 Ipratropium/Albuterol Sulfate 3 Ml Ampul.Neb IH 1 ampul TIDRT LIZZ Administration Atorvastatin Calcium 80 mg 12/16/21 22:00 12/16/21 21:23 Atorvastatin 40 Mg Tab PO 80 mg QHS LIZZ Administration Carvedilol 6.25 mg 12/16/21 22:00 12/16/21 21:23 Carvedilol 6.25 Mg Tab PO 6.25 mg BID LIZZ Administration Dextrose 0 ml 12/16/21 06:39 Dextrose 10% *Hypoglycemia IV DIRECT PRN Hypoglycemia Protocol Furosemide 40 mg 12/16/21 17:00 12/16/21 16:50 Furosemide 40 Mg Tab PO 40 mg QDAY LIZZ Administration Gabapentin 300 mg 12/16/21 20:00 12/16/21 21:24 Gabapentin 300 Mg Cap PO 300 mg TID LIZZ Administration Cefepime HCl 2 gm in 100 mls @ 200 mls/hr 12/16/21 08:00 12/16/21 23:44 Cefepime/Ns 2 Gm/100 Ml IV 200 mls/hr Q8H LIZZ Administration Protocol Levofloxacin/Dextrose 750 mg in 150 mls @ 100 mls/hr 12/16/21 02:00 12/16/21 09:23 Levaquin 750mg/150ml IV 100 mls/hr Q24HR [facility] Administration Protocol Insulin Human Lispro 0 unit 12/16/21 07:30 12/17/21 08:36 Insulin Lispro 100 Unit/Ml SUB-Q Not Given ACHS [facility] Protocol Isosorbide Mononitrate 60 mg 12/17/21 10:00 Isosorbide Mononitrate Er 60 Mg Tab PO QDAY [facility] Lisinopril 10 mg 12/17/21 10:00 Lisinopril 10 Mg Tab PO QDAY [facility] Ondansetron HCl 4 mg 12/16/21 01:04 Ondansetron 4 Mg/2 Ml Inj IV Q8H PRN Nausea And Vomiting Oxycodone/Acetaminophen 1.5 tab 12/16/21 21:00 12/17/21 05:13 Oxycodone /Acetaminophen 5-325mg Tab PO 1.5 tab Q8HR [facility] Administration Sodium Chloride 10 ml 12/16/21 10:00 12/16/21 21:26 Sodium Chloride 0.9% 10 Ml Flush Syringe IV 10 ml BID LIZZ Administration Sodium Chloride 10 ml 12/16/21 01:04 Sodium Chloride 0.9% 10 Ml Flush Syringe IV PRN PRN LINE FLUSH Tamsulosin HCl 0.4 mg 12/16/21 18:00 Tamsulosin 0.4 Mg Cap PO QPM [facility] Trazodone HCl 150 mg 12/16/21 22:00 12/16/21 21:24 Trazodone 50 Mg Tab PO Not Given QHS [facility]
[2021-12-17 09:11] LABS: Basophils # (Auto) 0.1 K/mm3 (0.0-0.1); Basophils % (Auto) 0.9 % (0.0-1.8); Eosinophils # (Auto) 0.1 K/mm3 (0.0-0.4); Eosinophils % (Auto) 1.3 % (0.0-4.3); Hematocrit 39.3 % (35.5-45.6); Hemoglobin 12.7 gm/dl (11.8-15.2); Lymphocytes # (Auto) 2.3 K/mm3 (1.2-5.4); Lymphocytes % (Auto) 27.9 % (13.4-35.0); Mean Corpuscular HGB Conc 32 % (32-34); Mean Corpuscular Volume 93 fl (84-94); Monocytes # (Auto) 0.6 K/mm3 (0.0-0.8); Monocytes % (Auto) 7.6 % (0.0-7.3); Platelet Count 356 K/mm3 (140-440); Red Blood Count 4.22 M/mm3 (3.65-5.03); Red Cell Distribution Width 15.7 % (13.2-15.2)
[2021-12-17 09:28] LABS: BUN/Creatinine Ratio 18; Blood Urea Nitrogen 21 mg/dL (9-20); Calcium 9.1 mg/dL (8.4-10.2); Hemolysis Index 9
[2021-12-17] MEDS: CEFEPIME/NS 2 GM/100 ML 2 GM/100 ML BAG IV SCH ×2 (10:41→16:56)
[2021-12-17] MEDS: carvediloL 6.25 MG TAB PO SCH ×2 (10:42→22:41)
[2021-12-17] MEDS: GABAPENTIN 300 MG CAP PO SCH ×3 (10:43→21:47)
[2021-12-17] MEDS: methylPREDNISolone Sod Succinate 40 MG/1 ML INJ IV SCH ×2 (10:43→21:44)
[2021-12-17] MEDS: LISINOPRIL 10 MG TAB PO SCH (10:43)
[2021-12-17] MEDS: FUROSEMIDE 40 MG/4 ML INJ IV SCH (10:44)
--- NOTE | 2021-12-17 11:24 | Cat Scan Report ---
CTA CHEST WITH CONTRAST INDICATION : Elevated D-dimer OMNI 350 100 ML. TECHNIQUE: Axial imaging performed through the chest, with contrast bolus timing set to maximize opa cification of the pulmonary arteries. Sagittal and coronal reformatted images. 3-plane MIP reformatte d images were obtained. All CT scans at this location are performed using CT dose reduction for ALAR A by means of automated exposure control. Omnipaque 350 100 mL of intravenous contrast administered. COMPARISON: FINDINGS: Bolus: Contrast bolus timing is slightly limited with poor opacification of the distal, small pulmon ralf arteries. PTE: No filling defect is present to suggest PTE. Mediastinum: Heart and great vessels appear normal. No pathologic mediastinal adenopathy. Coronary artery calcification: Mild. Lungs: There are mild to moderate emphysematous changes in the upper lung zones. No evidence for inf iltrate, pleural effusion or pneumothorax. Bones: Degenerative changes in the spine with nothing acute. Upper abdomen: 3 mm calyceal stone at the superior pole of the left kidney. IMPRESSION: Slightly limited exam but no pulmonary embolus is identified. Mild to moderate emphysematous changes. Nonobstructing left nephrolithiasis in the upper abdomen. Signer Name: Stalin Richey Jr, MD Signed: 12/17/2021 11:20 AM Workstation Name: [id number]
--- NOTE | 2021-12-17 11:44 | Consultation ---
History of Present Illness Consult date: 12/17/21 Consult reason: shortness of breath History of present illness: 66-year-old man with history of severe obesity, sleep apnea, chronic lung disease on home oxygen, diabetes and hypertension. He receives his usual care at the [facility]. There is no documented history of coronary artery disease or other significant cardiac pathology. He presents to the hospital at this time with shortness of breath and wheezing. He reports that he had a recent bout of pneumonia. On presentation, his chest x-ray did show bilateral mild interstitial infiltrates, greater on the right lung. Differential diagnosis include atypical pneumonia versus cardiogenic pulmonary edema. His COVID-19 test was negative. A VQ scan of the lungs was low probability for pulmonary embolism. Just last month, he had an echocardiogram that showed normal left ventricular systolic function with ejection fraction 60 to 70%. Patient currently looks and feels better, breathing comfortably on bedrest in the supine position in his room. There is no chest pain, no palpitations, no lower extremity edema. ECG was normal sinus rhythm, normal ECG with no ST or T wave changes of ischemia. Cardiac troponin levels were negative x2. Past History Past Medical History: arthritis, COPD, diabetes, heart failure, hypertension Past Surgical History: No surgical history Social history: smoking (Former Smoker) Family history: no significant family history Medications and Allergies Allergies Allergy/AdvReac Type Severity Reaction Status Date / Time haloperidol [From Haldol] Allergy lock jaw Verified 10/16/21 08:40 morphine Allergy weird Verified 10/16/21 08:40 feeling tramadol Allergy Rash Verified 10/16/21 08:40 Home Medications Medication Instructions Recorded Confirmed Last Taken Type Atorvastatin [Lipitor] 80 mg PO QHS 08/10/18 12/16/21 12/14/21 History Carvedilol [Coreg] 6.25 mg PO BID 30 Days tablet 08/14/18 12/16/21 12/14/21 Rx ISOSORBIDE MONOnitrate [Imdur ER] 60 mg PO QDAY #30 tablet 08/14/18 12/16/21 12/14/21 Rx Tamsulosin HCl [Flomax] 0.4 mg PO QPM #30 capsule 08/14/18 12/16/21 12/14/21 Rx Budesonide/Formoterol Fumarate 1 puff IH Q12H #1 hfa.aer.ad 08/22/18 12/16/21 12/14/21 Rx [Symbicort 160-4.5 Mcg Inhaler] Ipratropium/Albuterol Sulfate 1 ampul IH Q6HR #120 ampul.neb 08/22/18 12/16/21 12/14/21 Rx [DUONEB *Not for PRN Use*] Furosemide [Lasix TAB] 40 mg PO QDAY 03/13/19 12/16/21 12/14/21 History Albuterol Sulfate [Proventil Hfa] 2 puff IH Q46H PRN 10/16/21 12/16/21 12/14/21 History Gabapentin 300 mg PO TID 10/16/21 12/16/21 12/14/21 History Oxycodone HCl/Acetaminophen 1 tab PO TID 10/16/21 12/16/21 12/14/21 History [Percocet 7.5/325 mg] Trazodone HCl 150 mg PO QHS 10/16/21 12/16/21 12/14/21 History lisinopriL [Lisinopril] 10 mg PO QDAY 10/16/21 12/16/21 12/14/21 History metFORMIN [Glucophage] 500 mg PO QDAY 10/16/21 12/16/21 12/14/21 History Active Meds: Active Medications Acetaminophen (Acetaminophen 325 Mg Tab) 650 mg PO Q4H PRN PRN Reason: Pain MILD(1-3)/Fever >100.5/[place] Albuterol/Ipratropium (Ipratropium/Albuterol Sulfate 3 Ml Ampul.Neb) 1 ampul IH TIDRT [facility] Last Admin: 12/16/21 20:41 Dose: 1 ampul Atorvastatin Calcium (Atorvastatin 40 Mg Tab) 80 mg PO QHS [facility] Last Admin: 12/16/21 21:23 Dose: 80 mg Carvedilol (Carvedilol 6.25 Mg Tab) 6.25 mg PO BID [facility] Last Admin: 12/17/21 10:42 Dose: 6.25 mg Dextrose (Dextrose 10% *Hypoglycemia) 0 ml IV DIRECT PRN; Protocol PRN Reason: Hypoglycemia Furosemide (Furosemide 40 Mg/4 Ml Inj) 40 mg IV QDAY [facility] Last Admin: 12/17/21 10:44 Dose: 40 mg Gabapentin (Gabapentin 300 Mg Cap) 300 mg PO TID [facility] Last Admin: 12/17/21 10:43 Dose: 300 mg Cefepime HCl (Cefepime/Ns 2 Gm/100 Ml) 2 gm in 100 mls @ 200 mls/hr IV Q8H [facility]; Protocol Last Admin: 12/17/21 10:41 Dose: 200 mls/hr Levofloxacin/Dextrose (Levaquin 750mg/150ml) 750 mg in 150 mls @ 100 mls/hr IV Q24HR [facility]; Protocol Last Admin: 12/17/21 10:42 Dose: 100 mls/hr Insulin Human Lispro (Insulin Lispro 100 Unit/Ml) 0 unit SUB-Q ACHS [facility]; Protocol Last Admin: 12/17/21 08:36 Dose: Not Given Isosorbide Mononitrate (Isosorbide Mononitrate Er 60 Mg Tab) 60 mg PO QDAY [facility] Last Admin: 12/17/21 10:43 Dose: 60 mg Lisinopril (Lisinopril 10 Mg Tab) 10 mg PO QDAY [facility] Last Admin: 12/17/21 10:43 Dose: 10 mg Methylprednisolone Sodium Succinate (Methylprednisolone Sod Succinate 40 Mg/1 Ml Inj) 40 mg IV Q12HR [facility] Last Admin: 12/17/21 10:43 Dose: 40 mg Ondansetron HCl (Ondansetron 4 Mg/2 Ml Inj) 4 mg IV Q8H PRN PRN Reason: Nausea And Vomiting Oxycodone/Acetaminophen (Oxycodone /Acetaminophen 5-325mg Tab) 1.5 tab PO Q8HR [facility] Last Admin: 12/17/21 05:13 Dose: 1.5 tab Sodium Chloride (Sodium Chloride 0.9% 10 Ml Flush Syringe) 10 ml IV BID [facility] Last Admin: 12/17/21 10:44 Dose: 10 ml Sodium Chloride (Sodium Chloride 0.9% 10 Ml Flush Syringe) 10 ml IV PRN PRN PRN Reason: LINE FLUSH Tamsulosin HCl (Tamsulosin 0.4 Mg Cap) 0.4 mg PO QPM [facility] Trazodone HCl (Trazodone 50 Mg Tab) 150 mg PO QHS [facility] Last Admin: 12/16/21 21:24 Dose: Not Given Review of Systems Cardiovascular: shortness of breath, no chest pain, no orthopnea, no palpitations, no rapid/irregular heart beat, no edema, no syncope, no lightheadedness Physical Examination Vital Signs Pulse Resp Pulse Ox 85 18 97 12/15/21 21:08 12/15/21 21:08 12/15/21 21:08 General appearance: no acute distress, obese (Severely obese) HEENT: Positive: PERRL Neck: Positive: neck supple Cardiac: Positive: Reg Rate and Rhythm Lungs: Positive: Decreased Breath Sounds Neuro: Positive: Grossly Intact Abdomen: Positive: Soft Male genitourinary: Positive: deferred Skin: Positive: Clear Extremities: Absent: edema Results 12/17/21 08:41 12/17/21 08:41 CBC 12/17/21 Range/Units 08:41 WBC 8.4 (4.5-11.0) K/mm3 RBC 4.22 (3.65-5.03) M/mm3 Hgb 12.7 (11.8-15.2) gm/dl Hct 39.3 (35.5-45.6) % Plt Count 356 (140-440) K/mm3 Lymph # (Auto) 2.3 (1.2-5.4) K/mm3 [place] # (Auto) 0.6 (0.0-0.8) K/mm3 Eos # (Auto) 0.1 (0.0-0.4) K/mm3 Baso # (Auto) 0.1 (0.0-0.1) K/mm3 Comprehensive Metabolic Panel 12/17/21 Range/Units 08:41 Sodium 140 (137-145) mmol/L Potassium 3.7 (3.6-5.0) mmol/L Chloride 103.4 (98-107) mmol/L Carbon Dioxide 25 (22-30) mmol/L BUN 21 H (9-20) mg/dL Creatinine 1.2 (0.8-1.3) mg/dL Glucose 155 H (75-100) mg/dL Calcium 9.1 (8.4-10.2) mg/dL EKG interpretations - Telemetry EKG Rhythm: Sinus Rhythm (Normal ECG) Assessment and Plan - Patient Problems (1) Shortness of breath Current Visit: Yes Status: Acute Plan to address problem: Patient with chronic lung disease who presents with shortness of breath and bilateral pulmonary infiltrates worse on the right. Differential diagnosis i ncludes atypical pneumonia versus cardiogenic edema. Patient is Covid negative. Echocardiogram 1 month ago demonstrated normal ventricular systolic function, ejection fraction 60 to 70%. Continue current medical manage with antibiotics as indicated, and diuretic therapy. Further cardiac evaluation will depend on clinical course, will recommend a follow-up chest x-ray in the next 24 to 48 hours.
[2021-12-17] MEDS: IPRATROPIUM/ALBUTEROL SULFATE 3 ML AMPUL.NEB IH SCH ×3 (14:48→20:19)
--- NOTE | 2021-12-17 16:38 | Consultation ---
History of Present Illness - Reason for Consult Consult date: 12/17/21 - History of Present Illness 66-year-old man past medical history morbid obesity, CHF, CAD presented to the hospital complaining of right-sided chest pain. This began 3 days prior to admission and has been stable since onset. He also complains of associated shortness of breath. He was discharged from [facility] 3 days prior to admission with pneumonia, but has not improved since then. He was vaccinated against Covid with [employer] vaccine, and was boosted. Afebrile, normal white count. Normal renal function. Procalcitonin normal. Covid negative. Blood cultures no growth so far. Currently on cefepime. Imaging personally reviewed: Chest CTA: No pulmonary embolism. Mild to moderate emphysematous changes Review of Systems: Bold if positive, otherwise negative General: fevers, chills, rigors HEENT: visual disturbance, diplopia, eye pain Respiratory: cough, sputum, hemoptysis, shortness of breath Cardiovascular: chest pain, syncope Gastrointestinal: nausea, vomiting, diarrhea, abdominal pain Genitourinary: dysuria, hematuria, flank pain Musculoskeletal: neck pain, back pain, joint pain, edema Neurologic: headaches, seizures Hematologic: easy bruising or bleeding Endocrine: night sweats, acute weight loss Skin: rash, jaundice, redness Psychiatric: suicidal, homicidal ideation Past History Past Medical History: arthritis, COPD, diabetes, heart failure, hypertension Past Surgical History: No surgical history Social history: smoking (Former Smoker) Family history: no significant family history Medications and Allergies Allergies Allergy/AdvReac Type Severity Reaction Status Date / Time haloperidol [From Haldol] Allergy lock jaw Verified 10/16/21 08:40 morphine Allergy weird Verified 10/16/21 08:40 feeling tramadol Allergy Rash Verified 10/16/21 08:40 Home Medications Medication Instructions Recorded Confirmed Last Taken Type Atorvastatin [Lipitor] 80 mg PO QHS 08/10/18 12/16/21 12/14/21 History Carvedilol [Coreg] 6.25 mg PO BID 30 Days tablet 08/14/18 12/16/21 12/14/21 Rx ISOSORBIDE MONOnitrate [Imdur ER] 60 mg PO QDAY #30 tablet 08/14/18 12/16/21 12/14/21 Rx Tamsulosin HCl [Flomax] 0.4 mg PO QPM #30 capsule 08/14/18 12/16/21 12/14/21 Rx Budesonide/Formoterol Fumarate 1 puff IH Q12H #1 hfa.aer.ad 08/22/18 12/16/21 12/14/21 Rx [Symbicort 160-4.5 Mcg Inhaler] Ipratropium/Albuterol Sulfate 1 ampul IH Q6HR #120 ampul.neb 08/22/18 12/16/21 12/14/21 Rx [DUONEB *Not for PRN Use*] Furosemide [Lasix TAB] 40 mg PO QDAY 03/13/19 12/16/21 12/14/21 History Albuterol Sulfate [Proventil Hfa] 2 puff IH Q46H PRN 10/16/21 12/16/21 12/14/21 History Gabapentin 300 mg PO TID 10/16/21 12/16/21 12/14/21 History Oxycodone HCl/Acetaminophen 1 tab PO TID 10/16/21 12/16/21 12/14/21 History [Percocet 7.5/325 mg] Trazodone HCl 150 mg PO QHS 10/16/21 12/16/21 12/14/21 History lisinopriL [Lisinopril] 10 mg PO QDAY 10/16/21 12/16/21 12/14/21 History metFORMIN [Glucophage] 500 mg PO QDAY 10/16/21 12/16/21 12/14/21 History Active Meds: Active Medications Acetaminophen (Acetaminophen 325 Mg Tab) 650 mg PO Q4H PRN PRN Reason: Pain MILD(1-3)/Fever >100.5/[place] Albuterol/Ipratropium (Ipratropium/Albuterol Sulfate 3 Ml Ampul.Neb) 1 ampul IH TIDRT [facility] Last Admin: 12/17/21 14:48 Dose: 1 ampul Atorvastatin Calcium (Atorvastatin 40 Mg Tab) 80 mg PO QHS [facility] Last Admin: 12/16/21 21:23 Dose: 80 mg Carvedilol (Carvedilol 6.25 Mg Tab) 6.25 mg PO BID [facility] Last Admin: 12/17/21 10:42 Dose: 6.25 mg Dextrose (Dextrose 10% *Hypoglycemia) 0 ml IV DIRECT PRN; Protocol PRN Reason: Hypoglycemia Furosemide (Furosemide 40 Mg/4 Ml Inj) 40 mg IV QDAY [facility] Last Admin: 12/17/21 10:44 Dose: 40 mg Gabapentin (Gabapentin 300 Mg Cap) 300 mg PO TID [facility] Last Admin: 12/17/21 13:48 Dose: 300 mg Cefepime HCl (Cefepime/Ns 2 Gm/100 Ml) 2 gm in 100 mls @ 200 mls/hr IV Q8H [facility]; Protocol Last Admin: 12/17/21 10:41 Dose: 200 mls/hr Levofloxacin/Dextrose (Levaquin 750mg/150ml) 750 mg in 150 mls @ 100 mls/hr IV Q24HR [facility]; Protocol Last Admin: 12/17/21 10:42 Dose: 100 mls/hr Insulin Human Lispro (Insulin Lispro 100 Unit/Ml) 0 unit SUB-Q ACHS [facility]; Protocol Last Admin: 12/17/21 13:43 Dose: Not Given Isosorbide Mononitrate (Isosorbide Mononitrate Er 60 Mg Tab) 60 mg PO QDAY [facility] Last Admin: 12/17/21 10:43 Dose: 60 mg Lisinopril (Lisinopril 10 Mg Tab) 10 mg PO QDAY [facility] Last Admin: 12/17/21 10:43 Dose: 10 mg Methylprednisolone Sodium Succinate (Methylprednisolone Sod Succinate 40 Mg/1 Ml Inj) 40 mg IV Q12HR [facility] Last Admin: 12/17/21 10:43 Dose: 40 mg Ondansetron HCl (Ondansetron 4 Mg/2 Ml Inj) 4 mg IV Q8H PRN PRN Reason: Nausea And Vomiting Oxycodone/Acetaminophen (Oxycodone /Acetaminophen 5-325mg Tab) 1.5 tab PO Q8HR [facility] Last Admin: 12/17/21 13:55 Dose: 1.5 tab Sodium Chloride (Sodium Chloride 0.9% 10 Ml Flush Syringe) 10 ml IV BID [facility] Last Admin: 12/17/21 10:44 Dose: 10 ml Sodium Chloride (Sodium Chloride 0.9% 10 Ml Flush Syringe) 10 ml IV PRN PRN PRN Reason: LINE FLUSH Tamsulosin HCl (Tamsulosin 0.4 Mg Cap) 0.4 mg PO QPM [facility] Trazodone HCl (Trazodone 50 Mg Tab) 150 mg PO QHS [facility] Last Admin: 12/16/21 21:24 Dose: Not Given Physical Examination - Physical Exam Narrative exam: Physical Exam: Constitutional: Alert, cooperative. No acute distress Head, Ears, Nose: Normocephalic, atraumatic. External ears, nose normal Eyes: Conjunctivae/corneas clear. No icterus. No ptosis. Neck: Supple, no meningeal signs Oral: dentition fair, no thrush Cardiovascular: S1, S2 normal. Respiratory: Good air entry, clear to auscultation bilaterally GI: Soft, non-tender; bowel sounds normal. No peritoneal signs. Musculoskeletal: No pedal edema, no cyanosis. Skin: No rash or abscess Hem/Lymphatic: No palpable cervical or supraclavicular nodes. No lymphangitis Psych: Mood ok. Affect normal Neurological: Awake, alert, oriented. No gross abnormality - Constitutional Vitals: Vital Signs Temp Pulse Resp BP Pulse Ox 97.5 F L 87 20 119/64 95 12/17/21 04:49 12/17/21 14:45 12/17/21 14:45 12/17/21 10:43 12/17/21 10:00 Temperature -Last 24 Hours Temperature 97.5 F Temperature 97.8 F Results - Labs CBC & Chem 7: 12/17/21 08:41 12/17/21 08:41 Labs: Abnormal lab results 12/16/21 12/17/21 12/17/21 Range/Units 21:40 08:01 08:41 RDW 15.7 H (13.2-15.2) % Bertie % (Auto) 7.6 H (0.0-7.3) % BUN (9-20) mg/dL Glucose (75-100) mg/dL POC Glucose 149 H 130 H (70-105) mg/dL 12/17/21 12/17/21 Range/Units 08:41 16:02 RDW (13.2-15.2) % Bertie % (Auto) (0.0-7.3) % BUN 21 H (9-20) mg/dL Glucose 155 H (75-100) mg/dL POC Glucose 152 H (70-105) mg/dL Assessment and Plan Cultures: Blood culture no growth so far COVID-19 PCR negative A/P: 66-year-old man past medical history morbid obesity, CHF, CAD now with: #COPD exacerbation: COVID-19 PCR negative, procalcitonin negative. No need for antibiotics at present time. #CHF #Morbid obesity Recs: -Stop cefepime, no need for antibiotics -Management of COPD exacerbation per primary Thank you for the consult, we will continue to follow. Shari Stringer MD [facility] O: [phone] F: [phone]
[2021-12-17] MEDS: TAMSULOSIN 0.4 MG CAP PO SCH (17:30)
[2021-12-17] MEDS: traZODone 50 MG TAB PO SCH (21:42)
[2021-12-18] MEDS: IPRATROPIUM/ALBUTEROL SULFATE 3 ML AMPUL.NEB IH SCH ×4 (05:29→20:12)
[2021-12-18] MEDS: oxyCODONE /ACETAMINOPHEN 5-325MG TAB PO SCH ×3 (06:13→22:32)
[2021-12-18] MEDS: LISINOPRIL 10 MG TAB PO SCH (09:29)
[2021-12-18] MEDS: GABAPENTIN 300 MG CAP PO SCH ×3 (09:29→22:30)
[2021-12-18] MEDS: carvediloL 6.25 MG TAB PO SCH ×2 (09:30→22:30)
[2021-12-18] MEDS: methylPREDNISolone Sod Succinate 40 MG/1 ML INJ IV SCH ×2 (09:30→22:32)
[2021-12-18] MEDS: FUROSEMIDE 40 MG/4 ML INJ IV SCH (09:30)
[2021-12-18] MEDS: INSULIN LISPRO 100 UNIT/ML SUB-Q SCH ×4 (09:32→22:31)
[2021-12-18] MEDS: POLYETHYLENE GLYCOL 3350 17 GM POWDER PO PRN (09:41)
--- NOTE | 2021-12-18 11:22 | Progress Note ---
Assessment and Plan - Patient Problems (1) Shortness of breath Current Visit: Yes Status: Acute Plan to address problem: Patient with morbid obesity and chronic lung disease who presents with shortness of breath and bilateral pulmonary infiltrates worse on the right. Differential diagnosis includes atypical pneumonia versus cardiogenic edema. Patient is Covid negative. Echocardiogram 1 month ago demonstrated normal ventricular systolic function, ejection fraction 60 to 70%. Continue current medical manage with antibiotics as indicated, and diuretic therapy. Further cardiac evaluation will depend on clinical course, will recommend a follow-up chest x-ray in the next 24 to 48 hours. Subjective Date of service: 12/18/21 Principal diagnosis: Shortness of breath Interval history: Patient is comfortably no acute distress, his shortness of breath and wheezing have improved with inpatient pulmonary treatment. No cardiac complaints. Objective Vital Signs Temp Pulse Pulse Resp Resp BP Pulse Ox 12/18/21 09:30 88 121/57 12/18/21 09:29 88 90 18 121/57 98 12/18/21 05:32 84 18 12/18/21 04:15 97.8 F 70 18 120/64 91 12/17/21 22:41 95 H 110/55 12/17/21 22:00 19 95 12/17/21 21:56 98.0 F 95 H 18 110/55 92 12/17/21 20:22 94 12/17/21 20:21 84 20 12/17/21 14:45 87 20 - Physical Examination General: No Apparent Distress, Other (Morbidly obese) HEENT: Positive: PERRL Neck: Positive: neck supple Cardiac: Positive: Reg Rate and Rhythm Lungs: Positive: Decreased Breath Sounds Neuro: Positive: Grossly Intact Abdomen: Positive: Soft Skin: Positive: Clear Extremities: Absent: edema
--- NOTE | 2021-12-18 16:59 | Progress Note ---
Assessment and Plan Assessment and plan: 66-year-old morbidly obese male with known history of CHF, COPD, obstructive sleep apnea presenting to the emergency room today via EMS for right-sided chest pain which has been ongoing for the past few days. Patient also indicated that he has been having some shortness of breath. He was just discharged from [facility] about 3 days ago after having been diagnosed with pneumonia but discharged in 2 to 3 hours. States he has not been feeling quite well. Chest x-ray reveals mild bibasilar interstitial/parenchymal disease that may represent CHF. Labs were unremarkable. Patient was started on empiric IV antibiotics for pneumonia. Acute COPD exacerbation: Initially presented to [facility] [place] and was discharged in 23 hours but patient presented to [facility] for worsening cough and dyspnea. Symptoms are progressive improving on IV steroid, nebs and acute chemotherapy which was discontinued by ID. Expecting discharge tomorrow. Acute hypoxic respiratory failure, resolved. O2 weaned to room air. Patient has home O2 but not needing to use since several months. Covid PCR testing negative. No pneumonia on CT which showed emphysema. Elevated D-dimer, CTA negative for PE. History of lung excision following infection/collapse, 18 months ago at [place].. Chronic diastolic failure/dysfunction, stable. Patient with echocardiogram September 2021 which revealed mild diastolic dysfunction LVEF 60-65% Obstructive sleep apnea/obesity hypoventilation syndrome Diabetes mellitus type 2, acceptable basal control osteoarthropathy Daily events: 12/17/2021. Patient's chest x-ray reveals bilateral infiltrates that may be suggestive of bilateral pneumonia but the procalcitonin level and Covid PCR testing were negative. We will continue empiric IV antibiotics for now until ID consultation. I suspect patient may have heart failure exacerbation/decompensation. 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 Patient had a recent hospitalization here in September 2021 with echocardiogram that revealed EF 60-65%. Patient appears to be on heart failure medication with Lasix 40 mg, Coreg 6.25 mg twice daily and lisinopril 10 mg daily. We will change Lasix to IV and consult cardiology for further evaluation. The acute hypoxic respiratory failure is multifactorial secondary to NANDO/OHS, CHF, COPD and +/-pneumonia. We will start Solu-Medrol 40 mg IV twice daily and continue breathing treatments. We will also check CTA of chest given elevated D-dimer. 12/18: COPD exacerbation/symptoms progressing improving. On room air. Expecting discharge tomorrow. History Interval history: Patient reports breathing better, O2 weaned to room air. Cough better. Mentating well. No fever, chills, purulent sputum or hemoptysis. No chest pain. Hospitalist Physical - Constitutional Vitals: Temp Pulse Resp BP Pulse Ox 97.7 F 86 20 105/71 95 12/18/21 10:46 12/18/21 15:18 12/18/21 15:18 12/18/21 10:46 12/18/21 10:46 General appearance: Present: no acute distress, obese (Severely obese) - EENT Eyes: Present: PERRL, EOM intact ENT: hearing intact - Neck Neck: Present: supple - Respiratory Respiratory effort: normal Respiratory: bilateral: diminished, wheezing (Much improved) - Cardiovascular Rhythm: regular - Extremities Extremities: No edema - Abdominal General gastrointestinal: soft, non-tender, other (Obese) - Integumentary Integumentary: Absent: rash - Psychiatric Psychiatric: appropriate mood/affect - Neurologic Neurologic: moves all extremities HEART Score - HEART Score Troponin: Troponin T < 0.010 ng/mL (0.00-0.029) 12/16/21 00:10 Results - Labs CBC & Chem 7: 12/17/21 08:41 12/17/21 08:41 Labs: Laboratory Last Values WBC 8.4 K/mm3 (4.5-11.0) 12/17/21 08:41 RBC 4.22 M/mm3 (3.65-5.03) 12/17/21 08:41 Hgb 12.7 gm/dl (11.8-15.2) 12/17/21 08:41 Hct 39.3 % (35.5-45.6) 12/17/21 08:41 MCV 93 fl (84-94) 12/17/21 08:41 MCH 30 pg (28-32) 12/17/21 08:41 MCHC 32 % (32-34) 12/17/21 08:41 RDW 15.7 % (13.2-15.2) H 12/17/21 08:41 Plt Count 356 K/mm3 (140-440) 12/17/21 08:41 Lymph % (Auto) 27.9 % (13.4-35.0) 12/17/21 08:41 [place] % (Auto) 7.6 % (0.0-7.3) H 12/17/21 08:41 Eos % (Auto) 1.3 % (0.0-4.3) 12/17/21 08:41 Baso % (Auto) 0.9 % (0.0-1.8) 12/17/21 08:41 Lymph # (Auto) 2.3 K/mm3 (1.2-5.4) 12/17/21 08:41 [place] # (Auto) 0.6 K/mm3 (0.0-0.8) 12/17/21 08:41 Eos # (Auto) 0.1 K/mm3 (0.0-0.4) 12/17/21 08:41 Baso # (Auto) 0.1 K/mm3 (0.0-0.1) 12/17/21 08:41 Seg Neutrophils % 62.3 % (40.0-70.0) 12/17/21 08:41 Seg Neutrophils # 5.2 K/mm3 (1.8-7.7) 12/17/21 08:41 PT 13.1 Sec. (12.2-14.9) 12/15/21 21:31 INR 0.89 (0.87-1.13) 12/15/21 21:31 D-Dimer 245.33 ng/mlDDU (0-234) H 12/16/21 06:55 Sodium 140 mmol/L (137-145) 12/17/21 08:41 Potassium 3.7 mmol/L (3.6-5.0) 12/17/21 08:41 Chloride 103.4 mmol/L (98-107) 12/17/21 08:41 Carbon Dioxide 25 mmol/L (22-30) 12/17/21 08:41 Anion Gap 15 mmol/L 12/17/21 08:41 BUN 21 mg/dL (9-20) H 12/17/21 08:41 Creatinine 1.2 mg/dL (0.8-1.3) 12/17/21 08:41 Estimated GFR > 60 ml/min 12/17/21 08:41 BUN/Creatinine Ratio 18 % 12/17/21 08:41 Glucose 155 mg/dL (75-100) H 12/17/21 08:41 POC Glucose 131 mg/dL (70-105) H 12/18/21 16:00 Lactic Acid 0.60 mmol/L (0.7-2.0) L 12/15/21 21:31 Calcium 9.1 mg/dL (8.4-10.2) 12/17/21 08:41 Ferritin 148.8 ng/mL (30.0-300.0) 12/16/21 06:55 Lactate Dehydrogenase 143 units/L (91-180) 12/16/21 06:55 Troponin T < 0.010 ng/mL (0.00-0.029) 12/16/21 00:10 C-Reactive Protein 0.60 mg/dL (0.00-1.30) 12/16/21 06:55 NT-Pro-B Natriuret Pep 71.12 pg/mL (0-900) 12/15/21 21:31 Procalcitonin < 0.05 ng/mL (<0.15) 12/16/21 06:55 Coronavirus (PCR) Negative (Negative) 12/16/21 09:35 Blood Type O POSITIVE 12/15/21 21:31 Antibody Screen Negative 12/15/21 21:31 Microbiology: Microbiology 12/15/21 21:31 Peripheral/Venous Blood Culture - Preliminary NO GROWTH AFTER 48 HOURS 12/15/21 22:05 Peripheral/Venous Blood Culture - Preliminary NO GROWTH AFTER 48 HOURS Garza/IV: Voiding Method Toilet Active Medications - Current Medications Current Medications: Generic Name Dose Route Start Last Admin Trade Name Freq PRN Reason Stop Dose Admin Acetaminophen 650 mg 12/16/21 01:04 Acetaminophen 325 Mg Tab PO Q4H PRN Pain MILD(1-3)/Fever >100.5/[place] Albuterol/Ipratropium 1 ampul 12/16/21 20:00 12/18/21 15:18 Ipratropium/Albuterol Sulfate 3 Ml Ampul.Neb IH 1 ampul TIDRT LIZZ Administration Atorvastatin Calcium 80 mg 12/16/21 22:00 12/17/21 21:45 Atorvastatin 40 Mg Tab PO 80 mg QHS LIZZ Administration Bisacodyl 5 mg 12/17/21 21:39 12/18/21 09:41 Bisacodyl 5 Mg Tab PO 5 mg QDAY PRN Administration Constipation Carvedilol 6.25 mg 12/16/21 22:00 12/18/21 09:30 Carvedilol 6.25 Mg Tab PO 6.25 mg BID LIZZ Administration Dextrose 0 ml 12/16/21 06:39 Dextrose 10% *Hypoglycemia IV DIRECT PRN Hypoglycemia Protocol Furosemide 40 mg 12/17/21 10:00 12/18/21 09:30 Furosemide 40 Mg/4 Ml Inj IV 40 mg QDAY LIZZ Administration Gabapentin 300 mg 12/16/21 20:00 12/18/21 14:05 Gabapentin 300 Mg Cap PO 300 mg TID LIZZ Administration Insulin Human Lispro 0 unit 12/16/21 07:30 12/18/21 12:29 Insulin Lispro 100 Unit/Ml SUB-Q 3 unit ACHS LIZZ Administration Protocol Isosorbide Mononitrate 60 mg 12/17/21 10:00 12/18/21 09:29 Isosorbide Mononitrate Er 60 Mg Tab PO 60 mg QDAY LIZZ Administration Lisinopril 10 mg 12/17/21 10:00 12/18/21 09:29 Lisinopril 10 Mg Tab PO 10 mg QDAY LIZZ Administration Methylprednisolone Sodium Succinate 40 mg 12/17/21 10:00 12/18/21 09:30 Methylprednisolone Sod Succinate 40 Mg/1 Ml Inj IV 40 mg Q12HR LIZZ Administration Ondansetron HCl 4 mg 12/16/21 01:04 Ondansetron 4 Mg/2 Ml Inj IV Q8H PRN Nausea And Vomiting Oxycodone/Acetaminophen 1.5 tab 12/16/21 21:00 12/18/21 14:05 Oxycodone /Acetaminophen 5-325mg Tab PO 1.5 tab Q8HR LIZZ Administration Polyethylene Glycol 17 gm 12/17/21 21:35 12/18/21 09:41 Polyethylene Glycol 3350 17 Gm Powder PO 17 gm BID PRN Administration Constipation Sodium Chloride 10 ml 12/16/21 10:00 12/18/21 09:30 Sodium Chloride 0.9% 10 Ml Flush Syringe IV 10 ml BID LIZZ Administration Sodium Chloride 10 ml 12/16/21 01:04 Sodium Chloride 0.9% 10 Ml Flush Syringe IV PRN PRN LINE FLUSH Tamsulosin HCl 0.4 mg 12/16/21 18:00 12/17/21 17:30 Tamsulosin 0.4 Mg Cap PO 0.4 mg QPM LIZZ Administration Trazodone HCl 150 mg 12/16/21 22:00 12/17/21 21:42 Trazodone 50 Mg Tab PO Not Given QHS LIZZ
[2021-12-18] MEDS: TAMSULOSIN 0.4 MG CAP PO SCH (17:25)
[2021-12-18] MEDS: traZODone 50 MG TAB PO SCH (22:30)
[2021-12-19] MEDS: oxyCODONE /ACETAMINOPHEN 5-325MG TAB PO SCH ×2 (05:14→13:09)
[2021-12-19] MEDS: IPRATROPIUM/ALBUTEROL SULFATE 3 ML AMPUL.NEB IH SCH ×3 (09:37→21:33)
[2021-12-19] MEDS: GABAPENTIN 300 MG CAP PO SCH ×3 (10:27→22:16)
[2021-12-19] MEDS: FUROSEMIDE 40 MG/4 ML INJ IV SCH (10:28)
[2021-12-19] MEDS: methylPREDNISolone Sod Succinate 40 MG/1 ML INJ IV SCH (10:28)
[2021-12-19] MEDS: LISINOPRIL 10 MG TAB PO SCH (10:28)
[2021-12-19] MEDS: carvediloL 6.25 MG TAB PO SCH ×2 (10:28→22:20)
[2021-12-19] MEDS: INSULIN LISPRO 100 UNIT/ML SUB-Q SCH ×4 (10:29→22:19)
[2021-12-19] MEDS: POLYETHYLENE GLYCOL 3350 17 GM POWDER PO PRN (14:05)
--- NOTE | 2021-12-19 16:38 | Progress Note ---
Assessment and Plan - Patient Problems (1) Shortness of breath Current Visit: Yes Status: Acute Plan to address problem: Patient with morbid obesity and chronic lung disease who presents with shortness of breath and bilateral pulmonary infiltrates worse on the right. Differential diagnosis includes atypical pneumonia versus cardiogenic edema. Patient is Covid negative. Echocardiogram 1 month ago demonstrated normal ventricular systolic function, ejection fraction 60 to 70%. Continue current medical management with antibiotics as indicated, and diuretic therapy. Further cardiac evaluation will depend on clinical course, will recommend a follow-up chest x-ray. Subjective Date of service: 12/19/21 Principal diagnosis: Shortness of breath Interval history: Patient is comfortably no acute distress, no new cardiac complaints. Objective Vital Signs Temp Pulse Pulse Resp Resp BP Pulse Ox 12/19/21 14:00 88 19 12/19/21 13:09 18 12/19/21 10:27 81 160/76 12/19/21 10:00 98 12/19/21 09:38 94 12/19/21 08:00 86 19 12/19/21 04:17 97.6 F 78 18 130/67 95 12/18/21 22:02 97.6 F 89 16 120/61 93 12/18/21 22:00 95 12/18/21 20:14 92 12/18/21 20:13 93 H 20 - Physical Examination General: No Apparent Distress, Other (Morbidly obese) HEENT: Positive: PERRL Neck: Positive: neck supple Cardiac: Positive: Reg Rate and Rhythm Lungs: Positive: Decreased Breath Sounds Neuro: Positive: Grossly Intact Abdomen: Positive: Soft Skin: Positive: Clear Extremities: Absent: edema
--- NOTE | 2021-12-19 17:15 | Electrocardiograph Report ---
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
[2021-12-19] MEDS: TAMSULOSIN 0.4 MG CAP PO SCH (17:29)
--- NOTE | 2021-12-19 18:16 | Progress Note ---
Assessment and Plan Cultures: Blood culture no growth so far COVID-19 PCR negative A/P: 66-year-old man past medical history morbid obesity, CHF, CAD now with: #COPD exacerbation: COVID-19 PCR negative, procalcitonin negative. No need for antibiotics at present time. #CHF #Morbid obesity Recs: -Remain off antibiotics. -Management of COPD exacerbation per primary Thank you for the consult, we will sign off. Please call with questions. Shari Stringer MD [facility] O: [phone] F: [phone] Subjective Date of service: 12/19/21 Principal diagnosis: Shortness of breath Interval history: Afebrile, normal white count. On room air. Objective - Exam Narrative Exam: Physical Exam: Constitutional: Alert, cooperative. No acute distress Head, Ears, Nose: Normocephalic, atraumatic. External ears, nose normal Eyes: Conjunctivae/corneas clear. No icterus. No ptosis. Neck: Supple, no meningeal signs Oral: dentition fair, no thrush Cardiovascular: S1, S2 normal. Respiratory: Good air entry, clear to auscultation bilaterally GI: Soft, non-tender; bowel sounds normal. No peritoneal signs. Musculoskeletal: No pedal edema, no cyanosis. Skin: No rash or abscess Hem/Lymphatic: No palpable cervical or supraclavicular nodes. No lymphangitis Psych: Mood ok. Affect normal Neurological: Awake, alert, oriented. No gross abnormality - Constitutional Vitals: Vital Signs Temp Pulse Resp BP Pulse Ox 97.6 F 88 19 160/76 98 12/19/21 04:17 12/19/21 14:00 12/19/21 14:00 12/19/21 10:27 12/19/21 10:00 Temperature -Last 24 Hours Temperature 97.6 F Temperature 97.6 F - Labs CBC & Chem 7: 12/17/21 08:41 12/17/21 08:41 Labs: Abnormal lab results 12/18/21 12/19/21 12/19/21 Range/Units 21:25 07:35 11:11 POC Glucose 272 H 180 H 189 H (70-105) mg/dL 12/19/21 Range/Units 15:32 POC Glucose 226 H (70-105) mg/dL
--- NOTE | 2021-12-19 20:07 | Progress Note ---
Assessment and Plan Assessment and plan: 66-year-old morbidly obese male with known history of CHF, COPD, obstructive sleep apnea presenting to the emergency room today via EMS for right-sided chest pain which has been ongoing for the past few days. Patient also indicated that he has been having some shortness of breath. He was just discharged from [facility] about 3 days ago after having been diagnosed with pneumonia but discharged in 2 to 3 hours. States he has not been feeling quite well. Chest x-ray reveals mild bibasilar interstitial/parenchymal disease that may represent CHF. Labs were unremarkable. Patient was started on empiric IV antibiotics for pneumonia. Acute COPD exacerbation: Initially presented to [facility] and was discharged in 23 hours but patient presented to [facility] for worsening cough and dyspnea. Symptoms are progressive improving on IV steroid, nebs and acute chemotherapy which was discontinued by ID. Expecting discharge tomorrow. Acute hypoxic respiratory failure, resolved. O2 weaned to room air. Patient has home O2 but not needing to use since several months. Covid PCR testing negative. No pneumonia on CT which showed emphysema. Elevated D-dimer, CTA negative for PE. History of right lung excision following infection/collapse, 18 months ago at [place].. Chronic diastolic failure/dysfunction, stable. Patient with echocardiogram September 2021 which revealed mild diastolic dysfunction LVEF 60-65% Obstructive sleep apnea/obesity hypoventilation syndrome Diabetes mellitus type 2, acceptable glycemic control on IV steroids Daily events: 12/17/2021. Patient's chest x-ray reveals bilateral infiltrates that may be suggestive of bilateral pneumonia but the procalcitonin level and Covid PCR testing were negative. We will continue empiric IV antibiotics for now until ID consultation. I suspect patient may have heart failure exacerbation/decomp ensation. 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 Patient had a recent hospitalization here in September 2021 with echocardiogram that revealed EF 60-65%. Patient appears to be on heart failure medication with Lasix 40 mg, Coreg 6.25 mg twice daily and lisinopril 10 mg daily. We will change Lasix to IV and consult cardiology for further evaluation. The acute hypoxic respiratory failure is multifactorial secondary to NANDO/OHS, CHF, COPD and +/-pneumonia. We will start Solu-Medrol 40 mg IV twice daily and continue breathing treatments. We will also check CTA of chest given elevated D-dimer. 12/18: COPD exacerbation/symptoms progressing improving. On room air. Expecting discharge tomorrow. 12/19: Patient reports progressive doing better. With less cough and dyspnea is much better. No fever or chills. No purulent sputum. No hemoptysis. No pleuritic chest pain. Remains on room air currently. Positive blood glucose 180 on Solu-Medrol. Tapering steroids. Expect discharge in the morning. History Interval history: Patient reports progressive doing better. With less cough and dyspnea is much better. No fever or chills. No purulent sputum. No hemoptysis. No pleuritic chest pain. Remains on room air currently. Positive blood glucose 180 on Solu- Medrol. Tapering steroids. Expect discharge in the morning. Hospitalist Physical - Constitutional Vitals: Temp Pulse Resp BP Pulse Ox 97.6 F 88 19 160/76 98 12/19/21 04:17 12/19/21 14:00 12/19/21 14:00 12/19/21 10:27 12/19/21 10:00 General appearance: Present: no acute distress, obese (Severely obese) - EENT Eyes: Present: PERRL, EOM intact ENT: hearing intact - Neck Neck: Present: supple - Respiratory Respiratory effort: normal Respiratory: bilateral: diminished (Coarse wet sounds.), wheezing (no Significant wheezes.) - Cardiovascular Rhythm: regular - Extremities Extremities: No edema - Abdominal General gastrointestinal: soft, non-tender - Integumentary Integumentary: Absent: rash - Psychiatric Psychiatric: appropriate mood/affect - Neurologic Neurologic: moves all extremities (Alert and oriented, normal speech and normal mentation.) HEART Score - HEART Score Troponin: Troponin T < 0.010 ng/mL (0.00-0.029) 12/16/21 00:10 Results - Labs CBC & Chem 7: 12/17/21 08:41 12/17/21 08:41 Labs: Laboratory Last Values WBC 8.4 K/mm3 (4.5-11.0) 12/17/21 08:41 RBC 4.22 M/mm3 (3.65-5.03) 12/17/21 08:41 Hgb 12.7 gm/dl (11.8-15.2) 12/17/21 08:41 Hct 39.3 % (35.5-45.6) 12/17/21 08:41 MCV 93 fl (84-94) 12/17/21 08:41 MCH 30 pg (28-32) 12/17/21 08:41 MCHC 32 % (32-34) 12/17/21 08:41 RDW 15.7 % (13.2-15.2) H 12/17/21 08:41 Plt Count 356 K/mm3 (140-440) 12/17/21 08:41 Lymph % (Auto) 27.9 % (13.4-35.0) 12/17/21 08:41 [place] % (Auto) 7.6 % (0.0-7.3) H 12/17/21 08:41 Eos % (Auto) 1.3 % (0.0-4.3) 12/17/21 08:41 Baso % (Auto) 0.9 % (0.0-1.8) 12/17/21 08:41 Lymph # (Auto) 2.3 K/mm3 (1.2-5.4) 12/17/21 08:41 [place] # (Auto) 0.6 K/mm3 (0.0-0.8) 12/17/21 08:41 Eos # (Auto) 0.1 K/mm3 (0.0-0.4) 12/17/21 08:41 Baso # (Auto) 0.1 K/mm3 (0.0-0.1) 12/17/21 08:41 Seg Neutrophils % 62.3 % (40.0-70.0) 12/17/21 08:41 Seg Neutrophils # 5.2 K/mm3 (1.8-7.7) 12/17/21 08:41 PT 13.1 Sec. (12.2-14.9) 12/15/21 21:31 INR 0.89 (0.87-1.13) 12/15/21 21:31 D-Dimer 245.33 ng/mlDDU (0-234) H 12/16/21 06:55 Sodium 140 mmol/L (137-145) 12/17/21 08:41 Potassium 3.7 mmol/L (3.6-5.0) 12/17/21 08:41 Chloride 103.4 mmol/L (98-107) 12/17/21 08:41 Carbon Dioxide 25 mmol/L (22-30) 12/17/21 08:41 Anion Gap 15 mmol/L 12/17/21 08:41 BUN 21 mg/dL (9-20) H 12/17/21 08:41 Creatinine 1.2 mg/dL (0.8-1.3) 12/17/21 08:41 Estimated GFR > 60 ml/min 12/17/21 08:41 BUN/Creatinine Ratio 18 % 12/17/21 08:41 Glucose 155 mg/dL (75-100) H 12/17/21 08:41 POC Glucose 329 mg/dL (70-105) H 12/19/21 20:01 Lactic Acid 0.60 mmol/L (0.7-2.0) L 12/15/21 21:31 Calcium 9.1 mg/dL (8.4-10.2) 12/17/21 08:41 Ferritin 148.8 ng/mL (30.0-300.0) 12/16/21 06:55 Lactate Dehydrogenase 143 units/L (91-180) 12/16/21 06:55 Troponin T < 0.010 ng/mL (0.00-0.029) 12/16/21 00:10 C-Reactive Protein 0.60 mg/dL (0.00-1.30) 12/16/21 06:55 NT-Pro-B Natriuret Pep 71.12 pg/mL (0-900) 12/15/21 21:31 Procalcitonin < 0.05 ng/mL (<0.15) 12/16/21 06:55 Coronavirus (PCR) Negative (Negative) 12/16/21 09:35 Blood Type O POSITIVE 12/15/21 21:31 Antibody Screen Negative 12/15/21 21:31 Microbiology: Microbiology 12/15/21 21:31 Peripheral/Venous Blood Culture - Preliminary NO GROWTH AFTER 72 HOURS 12/15/21 22:05 Peripheral/Venous Blood Culture - Preliminary NO GROWTH AFTER 72 HOURS Garza/IV: Voiding Method Toilet Active Medications - Current Medications Current Medications: Generic Name Dose Route Start Last Admin Trade Name Freq PRN Reason Stop Dose Admin Acetaminophen 650 mg 12/16/21 01:04 Acetaminophen 325 Mg Tab PO Q4H PRN Pain MILD(1-3)/Fever >100.5/[place] Albuterol/Ipratropium 1 ampul 12/16/21 20:00 12/19/21 15:01 Ipratropium/Albuterol Sulfate 3 Ml Ampul.Neb IH 1 ampul TIDRT LIZZ Administration Atorvastatin Calcium 80 mg 12/16/21 22:00 12/18/21 22:31 Atorvastatin 40 Mg Tab PO 80 mg QHS LIZZ Administration Bisacodyl 5 mg 12/17/21 21:39 12/19/21 14:05 Bisacodyl 5 Mg Tab PO 5 mg QDAY PRN Administration Constipation Carvedilol 6.25 mg 12/16/21 22:00 12/19/21 10:28 Carvedilol 6.25 Mg Tab PO 6.25 mg BID LIZZ Administration Dextrose 0 ml 12/16/21 06:39 Dextrose 10% *Hypoglycemia IV DIRECT PRN Hypoglycemia Protocol Furosemide 40 mg 12/17/21 10:00 12/19/21 10:28 Furosemide 40 Mg/4 Ml Inj IV 40 mg QDAY LIZZ Administration Gabapentin 300 mg 12/16/21 20:00 12/19/21 13:02 Gabapentin 300 Mg Cap PO 300 mg TID LIZZ Administration Insulin Human Lispro 0 unit 12/16/21 07:30 12/19/21 17:29 Insulin Lispro 100 Unit/Ml SUB-Q 4 unit ACHS LIZZ Administration Protocol Isosorbide Mononitrate 60 mg 12/17/21 10:00 12/19/21 10:27 Isosorbide Mononitrate Er 60 Mg Tab PO 60 mg QDAY LIZZ Administration Lisinopril 10 mg 12/17/21 10:00 12/19/21 10:28 Lisinopril 10 Mg Tab PO 10 mg QDAY LIZZ Administration Methylprednisolone Sodium Succinate 40 mg 12/17/21 10:00 12/19/21 10:28 Methylprednisolone Sod Succinate 40 Mg/1 Ml Inj IV 40 mg Q12HR LIZZ Administration Ondansetron HCl 4 mg 12/16/21 01:04 Ondansetron 4 Mg/2 Ml Inj IV Q8H PRN Nausea And Vomiting Oxycodone/Acetaminophen 1.5 tab 12/16/21 21:00 12/19/21 13:09 Oxycodone /Acetaminophen 5-325mg Tab PO 1.5 tab Q8HR LIZZ Administration Polyethylene Glycol 17 gm 12/17/21 21:35 12/19/21 14:05 Polyethylene Glycol 3350 17 Gm Powder PO 17 gm BID PRN Administration Constipation Sodium Chloride 10 ml 12/16/21 10:00 12/19/21 10:29 Sodium Chloride 0.9% 10 Ml Flush Syringe IV 10 ml BID LIZZ Administration Sodium Chloride 10 ml 12/16/21 01:04 Sodium Chloride 0.9% 10 Ml Flush Syringe IV PRN PRN LINE FLUSH Tamsulosin HCl 0.4 mg 12/16/21 18:00 12/19/21 17:29 Tamsulosin 0.4 Mg Cap PO 0.4 mg QPM LIZZ Administration Trazodone HCl 150 mg 12/16/21 22:00 12/18/21 22:30 Trazodone 50 Mg Tab PO 150 mg QHS LIZZ Administration
[2021-12-19] MEDS: traZODone 50 MG TAB PO SCH (22:18)
[2021-12-19] MEDS ORDERED: oxyCODONE /ACETAMINOPHEN 5-325MG TAB PO ONE (23:40)
[2021-12-20] MEDS: IPRATROPIUM/ALBUTEROL SULFATE 3 ML AMPUL.NEB IH SCH (08:18)
[2021-12-20] MEDS: INSULIN LISPRO 100 UNIT/ML SUB-Q SCH ×2 (08:59→11:34)
[2021-12-20] MEDS: GABAPENTIN 300 MG CAP PO SCH (08:59)
[2021-12-20] MEDS: LISINOPRIL 10 MG TAB PO SCH (09:00)
[2021-12-20] MEDS: carvediloL 6.25 MG TAB PO SCH (09:00)
--- NOTE | 2021-12-20 09:25 | Discharge Summary ---
Providers - Providers Date of Admission: 12/16/21 01:04 Attending physician: JOAO PICHARDO MD 12/16/21 06:27 Consult to Physician [CONS] Routine Comment: Consulting Provider: KELSI MCKEON Physician Instructions: Reason For Exam: Pneumonia/PUI 12/17/21 08:51 Consult to Physician [CONS] Routine Comment: Consulting Provider: NORBERTO TATUM Physician Instructions: Reason For Exam: CHF Hospitalization Condition: Stable Hospital course: 66-year-old morbidly obese male with known history of CHF, COPD, obstructive sleep apnea presenting to the emergency room today via EMS for right-sided chest pain which has been ongoing for the past few days. Patient also indicated that he has been having some shortness of breath. He was just discharged from [facility] about 3 days ago after having been diagnosed with pneumonia but discharged in 2 to 3 hours. States he has not been feeling quite well. Chest x-ray reveals mild bibasilar interstitial/parenchymal disease that may represent CHF. Labs were unremarkable. Patient was started on empiric IV antibiotics for pneumonia. Acute COPD exacerbation: Initially presented to [facility] [place] and was discharged in 23 hours but patient presented to [facility] for worsening cough and dyspnea. Symptoms are progressive improving on IV steroid, nebs and empiric antibiotic therapy which was discontinued by ID. Patient was discharged home with improvement of dyspnea on steroid taper. Acute hypoxic respiratory failure, resolved. O2 weaned to room air. Patient has home O2 but not needing to use since several months. Covid PCR testing negative. No pneumonia on CT which showed emphysema. Elevated D-dimer, CTA negative for PE. History of right lung excision following infection/collapse, 18 months ago at [place].. Chronic diastolic failure/dysfunction, stable. Patient with echocardiogram September 2021 which revealed mild diastolic dysfunction LVEF 60-65% Obstructive sleep apnea/obesity hypoventilation syndrome Diabetes mellitus type 2, acceptable glycemic control on IV steroids Daily events: 12/17/2021. Patient's chest x-ray reveals bilateral infiltrates that may be suggestive of bilateral pneumonia but the procalcitonin level and Covid PCR testing were negative. We will continue empiric IV antibiotics for now until ID consultation. I suspect patient may have heart failure exacerbation/decompen sation. 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 Patient had a recent hospitalization here in September 2021 with echocardiogram that revealed EF 60-65%. Patient appears to be on heart failure medication with Lasix 40 mg, Coreg 6.25 mg twice daily and lisinopril 10 mg daily. We will change Lasix to IV and consult cardiology for further evaluation. The acute hypoxic respiratory failure is multifactorial secondary to NANDO/OHS, CHF, COPD and +/-pneumonia. We will start Solu-Medrol 40 mg IV twice daily and continue breathing treatments. We will also check CTA of chest given elevated D-dimer. 12/18: COPD exacerbation/symptoms progressing improving. On room air. Expecting discharge tomorrow. 12/19: Patient reports progressive doing better. With less cough and dyspnea is much better. No fever or chills. No purulent sputum. No hemoptysis. No pleuritic chest pain. Remains on room air currently. Positive blood glucose 180 on Solu-Medrol. Tapering steroids. Expect discharge in the morning. Disposition: HOME / SELF CARE / HOMELESS Final Discharge Diagnosis (Prints w/discharge instructions): Acute COPD exace rbation: Acute hypoxic respiratory failure, resolved. Covid PCR testing negative. No pneumonia on CT which showed emphysema. Elevated D-dimer, CTA negative for PE. History of right lung excision following infection/collapse, 18 months ago at [place].. Chronic diastolic failure/dysfunction, stable. Patient with echocardiogram September 2021 which revealed mild diastolic dysfunction LVEF 60-65%. Obstructive sleep apnea/obesity hypoventilation syndrome. Diabetes mellitus type 2, acceptable glycemic control on IV steroids Time spent for discharge: 35 minutes Core Measure Documentation - Palliative Care Palliative Care/ Comfort Measures: Not Applicable - Core Measures Any of the following diagnoses?: heart failure, none - Heart Failure Discharge Requirements LORI/ARB for LVSD if EF <40%: Not Applicable Beta maricruz at discharge: Yes Exam - Constitutional Vitals: Temp Pulse Resp BP Pulse Ox 97.8 F 88 16 108/49 95 12/20/21 05:21 12/20/21 08:00 12/20/21 08:00 12/20/21 05:21 12/20/21 08:24 General appearance: Present: no acute distress, obese (Morbidly obese) - EENT Eyes: Present: PERRL, EOM intact ENT: clear oral mucosa (Oropharynx crowded) - Neck Neck: Present: supple - Respiratory Respiratory effort: normal Respiratory: bilateral: diminished - Cardiovascular Rhythm: regular - Extremities Extremities: No edema - Abdominal General gastrointestinal: Present: non-tender - Integumentary Integumentary: Absent: rash - Musculoskeletal Musculoskeletal: strength equal bilaterally - Psychiatric Psychiatric: appropriate mood/affect - Neurologic Neurologic: no focal deficits, moves all extremities Plan Follow up with: JEROD SALGADO [Other] - 3-5 Days Prescriptions: Prednisone [predniSONE 5 mg (6-Day Pack, 21 Tabs)] 5 mg PO .TAPER #1
[2021-12-20] MEDS ORDERED: HYDROcodone/ACETAMINOPHEN 7.5-325MG TAB PO PRN (09:30)
[2021-12-20] MEDS ORDERED: predniSONE 20 MG TAB PO SCH (10:00)
--- NOTE | 2021-12-20 10:55 | Progress Note ---
Assessment and Plan - Patient Problems (1) Shortness of breath Current Visit: Yes Status: Acute Plan to address problem: Patient with morbid obesity and chronic lung disease who presents with shortness of breath and bilateral pulmonary infiltrates worse on the right. Differential diagnosis includes atypical pneumonia versus cardiogenic edema. Patient is Covid negative. Echocardiogram 1 month ago demonstrated normal ventricular systolic function, ejection fraction 60 to 70%. Subjective Date of service: 12/20/21 Principal diagnosis: Shortness of breath Interval history: Patient is comfortably no acute distress, no new cardiac complaints. No new cardiac events reported. Objective Vital Signs Temp Pulse Pulse Resp Resp Resp BP 12/20/21 08:24 12/20/21 08:00 88 16 12/20/21 05:21 97.8 F 72 22 108/49 12/20/21 00:19 19 12/19/21 23:19 19 12/19/21 22:20 97.8 F 85 22 153/73 12/19/21 22:00 19 19 12/19/21 21:36 12/19/21 21:35 90 18 12/19/21 14:00 88 19 12/19/21 13:09 18 Pulse Ox 12/20/21 08:24 95 12/20/21 08:00 12/20/21 05:21 93 12/20/21 00:19 12/19/21 23:19 12/19/21 22:20 94 12/19/21 22:00 94 12/19/21 21:36 94 12/19/21 21:35 12/19/21 14:00 12/19/21 13:09 - Physical Examination General: No Apparent Distress, Other (Morbidly obese) HEENT: Positive: PERRL Neck: Positive: neck supple Cardiac: Positive: Reg Rate and Rhythm Lungs: Positive: Decreased Breath Sounds Neuro: Positive: Grossly Intact Abdomen: Positive: Soft Skin: Positive: Clear Extremities: Absent: edema
[2021-12-20 12:27] VITALS: BP 127/76
== END 2021-12-20 14:13 | disposition home or self-care (01) | DRG 291 ==
LOC: ED 19:46 → 3A 12-16 01:04
PROVIDERS: ADMIT Internal Medicine Geriatric Medicine; ATTEND Internal Medicine
DX: I11.0 Hypertensive heart disease with heart failure (principal); J96.01 Acute respiratory failure with hypoxia; I50.33 Acute on chronic diastolic (congestive) heart failure; J44.1 Chronic obstructive pulmonary disease with (acute) exacerbation; E66.2 Morbid (severe) obesity with alveolar hypoventilation; Z68.42 Body mass index [BMI] 45.0-49.9, adult; Z20.822 Contact with and (suspected) exposure to COVID-19; Z87.891 Personal history of nicotine dependence
CPT/HCPCS: 36415; 71045; 71275; 80048; 82140; 82728; 82947; 82962; 83615; 83880; 84145; 84484; 85025; 85379; 85610; 86140; 86850; 86900; 86901; 87040; 93005; 93010; 94640; 94760; G0378; Q9967; J0692; J1815; J1940; J1956; J2405; J2920; J3010; J3370; U0003

== ENCOUNTER 2022-02-13 08:51 | Emergency (ER) | payer MEDICARE ==
[2022-02-13] MEDS ORDERED: FUROSEMIDE 40 MG/4 ML INJ IV ONE (09:28)
[2022-02-13] MEDS ORDERED: fentaNYL 100 MCG/2 ML INJ IV ONE (09:30)
--- NOTE | 2022-02-13 09:32 | Emergency Department Report ---
ED Shortness of Breath HPI - General Chief Complaint: Dyspnea/Respdistress Stated Complaint: SOB Time Seen by Provider: 02/13/22 09:24 Source: patient, EMS Mode of arrival: Stretcher Limitations: No Limitations - History of Present Illness Initial Comments: Patient is 66 years old male with history of congestive heart failure, COPD, hypertension and diabetes. Patient presented to the ER complaining of shortness of breath that started this morning. Patient stated that he used a breathing treatment but it did not help much. Patient denies any chest pain, fever but he stated that he started having some sweating and chills. He denied any abdominal pain, nausea or vomiting. MD Complaint: shortness of breath, cough -: This morning Known History Of: COPD, congestive heart failure Associated Symptoms: cough - Related Data Home Medications Medication Instructions Recorded Confirmed Last Taken Atorvastatin [Lipitor] 40 mg PO QHS 08/10/18 02/13/22 12/14/21 Furosemide [Lasix TAB] 40 mg PO QDAY 03/13/19 02/13/22 12/14/21 Gabapentin 300 mg PO TID 10/16/21 02/13/22 12/14/21 Oxycodone HCl/Acetaminophen 1 tab PO TID 10/16/21 02/13/22 12/14/21 [Percocet 7.5/325 mg] Trazodone HCl 150 mg PO QHS 10/16/21 02/13/22 12/14/21 lisinopriL [Lisinopril] 20 mg PO QDAY 10/16/21 02/13/22 12/14/21 metFORMIN [Glucophage] 500 mg PO QDAY 10/16/21 02/13/22 12/14/21 Budesonide/Formoterol Fumarate 10.2 gm IH QDAY 02/13/22 02/13/22 Unknown [Symbicort 80-4.5 Mcg Inhaler] Carvedilol [Coreg] 12.5 mg PO BID 02/13/22 02/13/22 Unknown ISOSORBIDE MONOnitrate [Imdur ER] 90 mg PO QDAY 02/13/22 02/13/22 Unknown Previous Rx's Medication Instructions Recorded Last Taken Type Tamsulosin HCl [Flomax] 0.4 mg PO QPM #30 capsule 08/14/18 12/14/21 Rx Budesonide/Formoterol Fumarate 1 puff IH Q12H #1 hfa.aer.ad 08/22/18 12/14/21 Rx [Symbicort 160-4.5 Mcg Inhaler] Ipratropium/Albuterol Sulfate 1 ampul IH Q6HR #120 ampul.neb 08/22/18 12/14/21 Rx [DUONEB *Not for PRN Use*] Allergies Allergy/AdvReac Type Severity Reaction Status Date / Time haloperidol [From Haldol] Allergy lock jaw Verified 02/13/22 08:56 morphine Allergy weird Verified 02/13/22 08:56 feeling tramadol Allergy Rash Verified 02/13/22 08:56 ED Review of Systems ROS: Stated complaint: SOB Other details as noted in HPI Comment: All other systems reviewed and negative Constitutional: chills. denies: fever Respiratory: cough, shortness of breath, SOB with exertion, SOB at rest, wheezing Cardiovascular: denies: chest pain, palpitations Gastrointestinal: denies: abdominal pain, nausea, vomiting, diarrhea Musculoskeletal: back pain Neurological: denies: headache, weakness, numbness, paresthesias, confusion ED Past Medical Hx - Past Medical History Hx Hypertension: Yes Hx CVA: No Hx Heart Attack/AMI: No Hx Congestive Heart Failure: Yes Hx Diabetes: Yes Hx Deep Vein Thrombosis: No Hx Pulmonary Embolism: No Hx GERD: No Hx Liver Disease: No Hx Renal Disease: No Hx Sickle Cell Disease: No Hx Arthritis: Yes (Lt. hip) Hx Headaches / Migraines: No Hx Seizures: No Hx Kidney Stones: No Hx Psychiatric Treatment: No Hx Asthma: No Hx COPD: Yes Hx Tuberculosis: No Hx Dementia: No Hx HIV: No Additional medical history: neuropathy. DJD - Surgical History Hx Open Heart Surgery: No Hx Pacemaker: No Hx Internal Defibrillator: No Hx Cholecystectomy: No Hx Appendectomy: No Hx Breast Surgery: No - Social History Smoking Status: Former Smoker - Medications Home Medications: Home Medications Medication Instructions Recorded Confirmed Last Taken Type Atorvastatin [Lipitor] 40 mg PO QHS 08/10/18 02/13/22 12/14/21 History Tamsulosin HCl [Flomax] 0.4 mg PO QPM #30 capsule 08/14/18 02/13/22 12/14/21 Rx Budesonide/Formoterol Fumarate 1 puff IH Q12H #1 hfa.aer.ad 08/22/18 02/13/22 12/14/21 Rx [Symbicort 160-4.5 Mcg Inhaler] Ipratropium/Albuterol Sulfate 1 ampul IH Q6HR #120 ampul.neb 08/22/18 02/13/22 12/14/21 Rx [DUONEB *Not for PRN Use*] Furosemide [Lasix TAB] 40 mg PO QDAY 03/13/19 02/13/22 12/14/21 History Gabapentin 300 mg PO TID 10/16/21 02/13/22 12/14/21 History Oxycodone HCl/Acetaminophen 1 tab PO TID 10/16/21 02/13/22 12/14/21 History [Percocet 7.5/325 mg] Trazodone HCl 150 mg PO QHS 10/16/21 02/13/22 12/14/21 History lisinopriL [Lisinopril] 20 mg PO QDAY 10/16/21 02/13/22 12/14/21 History metFORMIN [Glucophage] 500 mg PO QDAY 10/16/21 02/13/22 12/14/21 History Budesonide/Formoterol Fumarate 10.2 gm IH QDAY 02/13/22 02/13/22 Unknown History [Symbicort 80-4.5 Mcg Inhaler] Carvedilol [Coreg] 12.5 mg PO BID 02/13/22 02/13/22 Unknown History ISOSORBIDE MONOnitrate [Imdur ER] 90 mg PO QDAY 02/13/22 02/13/22 Unknown Hist ory ED Physical Exam - General Limitations: No Limitations General appearance: alert, in no apparent distress - Head Head exam: Present: atraumatic, normocephalic, normal inspection - Eye Eye exam: Present: normal appearance - ENT ENT exam: Present: normal exam, normal orophraynx, mucous membranes moist - Neck Neck exam: Present: normal inspection, full ROM. Absent: tenderness, meningismus - Respiratory Respiratory exam: Present: decreased breath sounds. Absent: rales, rhonchi - Cardiovascular Cardiovascular Exam: Present: regular rate, normal rhythm, normal heart sounds - GI/Abdominal GI/Abdominal exam: Present: soft, normal bowel sounds. Absent: distended, tenderness, guarding, rebound, rigid, organomegaly, mass, bruit, pulsatile mass, hernia - Extremities Exam Extremities exam: Present: normal inspection, full ROM, normal capillary refill. Absent: tenderness, pedal edema - Back Exam Back exam: Present: normal inspection, full ROM. Absent: CVA tenderness (R), CVA tenderness (L) - Neurological Exam Neurological exam: Present: alert, oriented X3, CN II-XII intact, normal gait - Psychiatric Psychiatric exam: Present: normal mood - Skin Skin exam: Present: warm, intact, normal color ED Course Vital Signs 02/13/22 02/13/22 02/13/22 08:53 09:30 10:16 Temperature 97.5 F L Pulse Rate 81 Blood Pressure 122/76 128/71 Blood Pressure 137/74 [Left] O2 Sat by Pulse 96 97 96 Oximetry 02/13/22 10:28 Temperature Pulse Rate Blood Pressure Blood Pressure [Left] O2 Sat by Pulse 96 Oximetry ED Medical Decision Making - Lab Data Result diagrams: 02/13/22 09:28 02/13/22 09:28 - EKG Data -: EKG Interpreted by [place] EKG shows normal: sinus rhythm Rate: normal - EKG Data Interpretation: no acute changes - Radiology Data Radiology results: report reviewed - Medical Decision Making Patient is 66 years old male with history of congestive heart failure, COPD, hypertension and diabetes. Patient presented to the ER complaining of shortness of breath that started this morning. Patient stated that he used a breathing treatment but it did not help much. Patient denies any chest pain, fever but he stated that he started having some sweating and chills. He denied any abdominal pain, nausea or vomiting. Patient remained stable in the ER with a stable vital sign. Patient received albuterol Atrovent and Solu-Medrol. Patient stated that his pain is much bett er. Labs reviewed and is unremarkable. Chest x-ray is negative for acute finding. Patient given prescription for prednisone and advised to follow-up with his primary doctor in the next 2 to 3 days and to return to the ER if he develops any new symptoms. Critical care attestation.: If time is entered above; I have spent that time in minutes in the direct care of this critically ill patient, excluding procedure time. ED Disposition Clinical Impression: COPD exacerbation Disposition: 01 HOME / SELF CARE / HOMELESS Is pt being admited?: No Condition: Stable Instructions: Chronic Obstructive Pulmonary Disease (ED), Chronic Obstructive Pulmonary Disease Exacerbation, [id number] Referrals: PRIMARY CARE, [Primary Care Provider] - 3-5 Days
[2022-02-13 09:57] LABS: Basophils % (Auto) 0.8 % (0.0-1.8); Eosinophils # (Auto) 0.2 K/mm3 (0.0-0.4); Eosinophils % (Auto) 4.3 % (0.0-4.3); Hematocrit 43.9 % (35.5-45.6); Hemoglobin 14.3 gm/dl (11.8-15.2); Lymphocytes # (Auto) 1.3 K/mm3 (1.2-5.4); Lymphocytes % (Auto) 26.5 % (13.4-35.0); Mean Corpuscular HGB Conc 33 % (32-34); Mean Corpuscular Volume 94 fl (84-94); Monocytes # (Auto) 0.5 K/mm3 (0.0-0.8); Monocytes % (Auto) 10.6 % (0.0-7.3); Platelet Count 295 K/mm3 (140-440); Red Cell Distribution Width 16.6 % (13.2-15.2)
--- NOTE | 2022-02-13 09:59 | XRay Report ---
CHEST 1 VIEW 02/13/2022 9:33 AM INDICATION / CLINICAL INFORMATION: Dyspnea. COMPARISON: 12/15/2021. FINDINGS: SUPPORT DEVICES: None. HEART / MEDIASTINUM: No significant abnormality. LUNGS / PLEURA: No significant pulmonary or pleural abnormality. No pneumothorax. ADDITIONAL FINDINGS: No significant additional findings. IMPRESSION: No acute abnormality. Signer Name: Wayne Douglas MD Signed: 02/13/2022 9:55 AM Workstation Name: [id number]
[2022-02-13 10:10] LABS: INR 0.94 (0.87-1.13)
[2022-02-13 10:11] LABS: BUN/Creatinine Ratio 10; Blood Urea Nitrogen 11 mg/dL (9-20); Calcium 10.1 mg/dL (8.4-10.2); Hemolysis Index 13
[2022-02-13] MEDS ORDERED: methylPREDNISolone Sod Succinate 125 MG/2 ML INJ IV ONE (11:52)
[2022-02-13] MEDS ORDERED: ALBUTEROL 2.5 MG/3 ML NEBU IH ONE (11:52)
[2022-02-13] MEDS ORDERED: IPRATROPIUM 0.02% NEBU 2.5 ML IH ONE (11:52)
[2022-02-13 14:33] VITALS: BP 123/65
== END 2022-02-13 14:33 | disposition home or self-care (01) ==
LOC: ED 08:51
DX: J44.1 Chronic obstructive pulmonary disease with (acute) exacerbation (principal); Z87.891 Personal history of nicotine dependence; I10 Essential (primary) hypertension; Z88.5 Allergy status to narcotic agent
CPT/HCPCS: 36415; 71045; 80048; 83880; 84484; 85025; 85610; 85730; 87040; 96374; 96375; 99284; J1940; J3010

== ENCOUNTER 2022-05-05 18:05 | Emergency (ER) | payer MEDICARE ==
[2022-05-05] MEDS ORDERED: methylPREDNISolone Sod Succinate 125 MG/2 ML INJ IV ONE (18:23)
[2022-05-05] MEDS ORDERED: KETOROLAC 30 MG/1 ML INJ IV ONE (18:23)
[2022-05-05] MEDS ORDERED: fentaNYL 100 MCG/2 ML INJ IV ONE (18:23)
[2022-05-05] MEDS ORDERED: ALBUTEROL 2.5 MG/3 ML NEBU IH ONE (18:23)
[2022-05-05] MEDS ORDERED: IPRATROPIUM 0.02% NEBU 2.5 ML IH ONE (18:23)
--- NOTE | 2022-05-05 18:25 | Emergency Department Report ---
ED General Adult HPI - General Chief complaint: Dyspnea/Respdistress Stated complaint: SOB PUI?: No Time Seen by Provider: 05/05/22 18:16 Source: patient, EMS (Verbal report received from emergency medical services. EMS documentation not available at time of chart dictation ), RN notes reviewed, old records reviewed Mode of arrival: Stretcher Limitations: No Limitations - History of Present Illness Initial comments: The patient was evaluated in the emergency department for symptoms described in the history of present illness. He/she was evaluated in the context of the global COVID-19 pandemic, which necessitated consideration that the patient might be at risk for infection with the virus that causes COVID-19. Institut ional protocols and algorithms that pertain to the evaluation of patients at risk for COVID-19 are in a state of rapid change based on information released by regulatory bodies including the CDC and federal and state organizations. These policies and algorithms were followed during the patient's care in the emergency department. Please note that these policies, procedures and recommendations changed on a rapid basis. This is a pleasant and cooperative 67-year-old gentleman. His past medical history includes COPD, hypertension, hyperlipidemia, arthritis, chronic diastolic heart failure, obstructive sleep apnea, obesity hypoventilation syndrome, type 2 diabetes, and history of right lung excision following infection and collapse. The patient reports that he has been coughing and having mild shortness of breath for the past few days, and reports that earlier on today he got pulled over, and was found to have an driving license. He reports that he felt very anxious during this ordeal, and began to have some shortness of breath. He has chronic back pain and musculoskeletal pain. 911 was activated. EMS gave 2.5 of albuterol in the field. The patient reports chronic back pain. He reports his outpatient physician is managing his chronic pain with opioids. -: Gradual, days(s) Location: back Quality: aching Consistency: constant Improves with: rest Worsens with: movement, other (Stressful situation from getting pulled over and possibly arrest) - Related Data Home Medications Medication Instructions Recorded Confirmed Last Taken Atorvastatin [Lipitor] 40 mg PO QHS 08/10/18 04/06/22 04/04/22 22:00 Furosemide [Lasix TAB] 40 mg PO QDAY 03/13/19 04/06/22 04/05/22 08:00 Gabapentin 300 mg PO TID 10/16/21 04/06/22 04/05/22 08:00 Oxycodone HCl/Acetaminophen 1 tab PO Q8HR 10/16/21 04/06/22 04/05/22 22:00 [Percocet 7.5/325 mg] Trazodone HCl 150 mg PO PRN 10/16/21 04/06/22 12/14/21 lisinopriL [Lisinopril] 20 mg PO QDAY 10/16/21 04/06/22 04/05/22 08:00 metFORMIN [Glucophage] 500 mg PO QDAY 10/16/21 04/06/22 04/05/22 08:00 Budesonide/Formoterol Fumarate 10.2 gm IH QDAY 02/13/22 04/06/22 04/05/22 08:00 [Symbicort 80-4.5 Mcg Inhaler] ISOSORBIDE MONOnitrate [Imdur ER] 30 mg PO QDAY 02/13/22 04/08/22 04/05/22 08:00 Ipratropium/Albuterol Sulfate 1 ampul IH PRN 04/06/22 04/06/22 Unknown [DUONEB *Not for PRN Use*] Previous Rx's Medication Instructions Recorded Last Taken Type Tamsulosin HCl [Flomax] 0.4 mg PO QPM #30 capsule 08/14/18 04/05/22 08:00 Rx Budesonide/Formoterol Fumarate 1 puff IH Q12H #1 hfa.[email or web address] 08/22/18 04/05/22 08:00 Rx [Symbicort 160-4.5 Mcg Inhaler] Albuterol Sulfate [Proair 90 mcg IH Q4HR PRN #2 aer.pow.ba 05/05/22 Unknown Rx Respiclick] Ipratropium (Nf) [Atrovent] 2 puff IH Q6HR PRN #1 inha 05/05/22 Unknown Rx Allergies Allergy/AdvReac Type Severity Reaction Status Date / Time haloperidol [From Haldol] Allergy lock jaw Verified 05/05/22 18:14 morphine Allergy weird Verified 05/05/22 18:14 feeling tramadol Allergy Rash Verified 05/05/22 18:14 ED Review of Systems ROS: Stated complaint: SOB Other details as noted in HPI Constitutional: denies: fever Eyes: denies: eye discharge ENT: congestion Respiratory: shortness of breath, SOB with exertion, SOB at rest Cardiovascular: denies: chest pain, syncope Gastrointestinal: denies: abdominal pain, vomiting Musculoskeletal: back pain, arthralgia, myalgia Neurological: denies: weakness ED Past Medical Hx - Past Medical History Hx Hypertension: Yes Hx CVA: No Hx Heart Attack/AMI: No Hx Congestive Heart Failure: Yes Hx Diabetes: Yes (t2) Hx Deep Vein Thrombosis: No Hx Pulmonary Embolism: No Hx GERD: No Hx Liver Disease: No Hx Renal Disease: No Hx Sickle Cell Disease: No Hx Arthritis: Yes (Lt. hip) Hx Headaches / Migraines: No Hx Seizures: No Hx Kidney Stones: No Hx Psychiatric Treatment: No Hx Asthma: No Hx COPD: Yes Hx Tuberculosis: No Hx Dementia: No Hx HIV: No Additional medical history: neuropathy. DJD - Surgical History Hx Open Heart Surgery: No Hx Pacemaker: No Hx Internal Defibrillator: No Hx Cholecystectomy: No Hx Appendectomy: No Hx Breast Surgery: No - Social History Smoking Status: Former Smoker - Medications Home Medications: Home Medications Medication Instructions Recorded Confirmed Last Taken Type Atorvastatin [Lipitor] 40 mg PO QHS 08/10/18 04/06/22 04/04/22 22:00 History Tamsulosin HCl [Flomax] 0.4 mg PO QPM #30 capsule 08/14/18 04/06/22 04/05/22 08:00 Rx Budesonide/Formoterol Fumarate 1 puff IH Q12H #1 hfa.aer.ad 08/22/18 04/06/22 04/05/22 08:00 Rx [Symbicort 160-4.5 Mcg Inhaler] Furosemide [Lasix TAB] 40 mg PO QDAY 03/13/19 04/06/22 04/05/22 08:00 History Gabapentin 300 mg PO TID 10/16/21 04/06/22 04/05/22 08:00 History Oxycodone HCl/Acetaminophen 1 tab PO Q8HR 10/16/21 04/06/22 04/05/22 22:00 History [Percocet 7.5/325 mg] Trazodone HCl 150 mg PO PRN 10/16/21 04/06/22 12/14/21 History lisinopriL [Lisinopril] 20 mg PO QDAY 10/16/21 04/06/22 04/05/22 08:00 History metFORMIN [Glucophage] 500 mg PO QDAY 10/16/21 04/06/22 04/05/22 08:00 History Budesonide/Formoterol Fumarate 10.2 gm IH QDAY 02/13/22 04/06/22 04/05/22 08:00 History [Symbicort 80-4.5 Mcg Inhaler] ISOSORBIDE MONOnitrate [Imdur ER] 30 mg PO QDAY 02/13/22 04/08/22 04/05/22 08:00 History Ipratropium/Albuterol Sulfate 1 ampul IH PRN 04/06/22 04/06/22 Unknown History [DUONEB *Not for PRN Use*] Albuterol Sulfate [Proair 90 mcg IH Q4HR PRN #2 aer.pow.ba 05/05/22 Unknown Rx Respiclick] Ipratropium (Nf) [Atrovent] 2 puff IH Q6HR PRN #1 inha 05/05/22 Unknown Rx ED Physical Exam - General Limitations: No Limitations General appearance: alert, in no apparent distress, obese - Head Head exam: Present: atraumatic, normocephalic - Eye Eye exam: Present: normal appearance, EOMI. Absent: nystagmus - ENT ENT exam: Present: normal exam, normal orophraynx, mucous membranes moist, normal external ear exam - Neck Neck exam: Present: normal inspection, full ROM. Absent: tenderness, meningismus - Respiratory Respiratory exam: Present: decreased breath sounds. Absent: respiratory distress, wheezes, rales, rhonchi, stridor - Cardiovascular Cardiovascular Exam: Present: regular rate, normal rhythm, normal heart sounds. Absent: bradycardia, tachycardia, irregular rhythm, systolic murmur, diastolic murmur, rubs, gallop - GI/Abdominal GI/Abdominal exam: Present: soft. Absent: distended, tenderness, guarding, rebound, rigid, pulsatile mass - Rectal Rectal exam: Present: deferred - Extremities Exam Extremities exam: Present: normal inspection, full ROM, pedal edema (1+ edema in the bilateral lower extremities.), other (2+ pulses noted in the bilateral upper and lower extremities. There is no palpable cord. negative Homans sign. Muscular compartments are soft. The pelvis is stable.). Absent: calf tenderness - Back Exam Back exam: Present: normal inspection, paraspinal tenderness. Absent: CVA tenderness (R), CVA tenderness (L), muscle spasm - Neurological Exam Neurological exam: Present: alert, oriented X3, other (No facial droop. Tongue midline. Extraocular movements intact bilaterally. Facial sensation intact to light touch in V1, V2, V3 distribution bilaterally. 5 and a 5 strength in 4 extremities. Sensation intact to light touch in 4 extremities.). Absent: motor sensory deficit - Psychiatric Psychiatric exam: Present: normal affect, normal mood - Skin Skin exam: Present: warm, dry, intact, normal color. Absent: rash ED Course Vital Signs 05/05/22 05/05/22 05/05/22 18:10 18:34 18:39 Temperature 98.1 F Pulse Rate 97 H 100 H Pulse Rate [ 84 Anterior] Respiratory 20 19 Rate Respiratory 19 Rate [Anterior] Blood Pressure Blood Pressure 104/63 [Left] O2 Sat by Pulse 97 97 Oximetry 05/05/22 05/05/22 05/05/22 18:46 18:56 19:00 Temperature Pulse Rate 96 H 94 H Pulse Rate [ Anterior] Respiratory 15 24 15 Rate Respiratory Rate [Anterior] Blood Pressure 101/75 110/74 Blood Pressure [Left] O2 Sat by Pulse 95 94 100 Oximetry - Reevaluation(s) Reevaluation #1: 05/05/22 19:40 Differential diagnosis, include but not limited to: Chronic congestive heart failure, chronic COPD, pneumonia, bronchitis, anxiety, stress reaction, chronic pain syndrome Assessment and plan: 67-year-old gentleman, who is not currently tachycardic, tachypneic or significantly hypoxic, presenting with chronic cough and shortness of breath, 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 Patient is not wheezing. He is saturating 100% on room air. He has minimal 1+ edema on his lower extremities. During the history and physical, patient perseverates on pain medication, and makes multiple remarks about his chronic pain He is in no respiratory distress whatsoever. His lung sounds are diminished but have no crackles or rales. His EKG is unchanged from prior. His laboratory studies are essentially unremarkable. Chest x-ray is essentially unremarkable. Patient is observed in this department for hours without clinical decompensation. He can be discharged to follow-up with his outpatient primary care doctor pain specialist, and researcher. He is endorsing chronic neuropathic pain in his left upper extremity. His chest x-ray is unremarkable. He is in no respiratory distress. He may be discharged 05/05/22 20:08 05/05/22 20:22 Patient speaking on cell phone, and making multiple requests to be discharged ED Medical Decision Making - Lab Data Result diagrams: 05/05/22 18:52 05/05/22 18:52 Vital Signs 05/05/22 05/05/22 05/05/22 18:10 18:34 18:39 Temperature 98.1 F Pulse Rate 97 H 100 H Pulse Rate [ 84 Anterior] Respiratory 20 19 Rate Respiratory 19 Rate [Anterior] Blood Pressure Blood Pressure 104/63 [Left] O2 Sat by Pulse 97 97 Oximetry 05/05/22 05/05/22 05/05/22 18:46 18:56 19:00 Temperature Pulse Rate 96 H 94 H Pulse Rate [ Anterior] Respiratory 15 24 15 Rate Respiratory Rate [Anterior] Blood Pressure 101/75 110/74 Blood Pressure [Left] O2 Sat by Pulse 95 94 100 Oximetry Lab Results 05/05/22 05/05/22 05/05/22 Range/Units 18:52 18:52 18:52 WBC 6.1 (4.5-11.0) K/mm3 RBC 4.36 (3.65-5.03) M/mm3 Hgb 13.1 (11.8-15.2) gm/dl Hct 40.7 (35.5-45.6) % MCV 93 (84-94) fl MCH 30 (28-32) pg MCHC 32 (32-34) % RDW 15.6 H (13.2-15.2) % Plt Count 277 (140-440) K/mm3 Sodium 141 (137-145) mmol/L Potassium 4.5 (3.6-5.0) mmol/L Chloride 105.0 (98-107) mmol/L Carbon Dioxide 26 (22-30) mmol/L Anion Gap 15 mmol/L BUN 14 (9-20) mg/dL Creatinine 1.4 H (0.8-1.3) mg/dL Estimated GFR > 60 ml/min BUN/Creatinine Ratio 10 % Glucose 100 (75-100) mg/dL Calcium 9.6 (8.4-10.2) mg/dL Magnesium 2.30 (1.7-2.3) mg/dL Total Creatine Kinase 77 (55-170) units/L Troponin T < 0.010 (0.00-0.029) ng/mL - EKG Data -: EKG Interpreted by [facility] EKG shows normal: sinus rhythm Rate: normal - EKG Data 05/05/22 19:39 The EKG is interpreted at 18: 57 Sinus rhythm, 97 bpm. Left axis deviation, QTC 4 6 4 ms, minimal motion artifact, with atrial enlargement. This is not a STEMI. This is an abnormal EKG. This appears to be unchanged from prior EKG from April 05, 2022. - Radiology Data Radiology results: pending, report reviewed, image reviewed X-ray of the chest is negative for acute findings Critical care attestation.: If time is entered above; I have spent that time in minutes in the direct care of this critically ill patient, excluding procedure time. ED Disposition Clinical Impression: COPD (chronic obstructive pulmonary disease), Chronic pain Disposition: 01 HOME / SELF CARE / HOMELESS Is pt being admited?: No Does the pt Need Aspirin: No Condition: Good Instructions: Chronic Obstructive Pulmonary Disease (ED) Additional Instructions: Please continue current breathing medications. Please continue current pain medications. Please take the breathing medications as needed and directed. Please continue current outpatient pain medications. Please follow-up with your outpatient primary care doctor or researcher within the next week. Follow-up with your outpatient pain specialist as scheduled. Please return to the emergency room right away with new pain, worsened pain, migration of pain, projectile vomiting, change in mental status, confusion, hector bility tolerate liquid feeds, new, worsened or different symptoms not present on the initial emergency room evaluation Prescriptions: Ipratropium (Nf) [Atrovent] 2 puff IH Q6HR PRN #1 inha PRN Reason: Wheezing Albuterol Sulfate [Proair Respiclick] 90 mcg IH Q4HR PRN #2 aer.pow.ba PRN Reason: Wheezing Referrals: GENET SYKES MD [Staff Physician] - 3-5 Days PARUL FREY MD [Staff Physician] - 3-5 Days [facility] [Provider Group] - 3-5 Days
[2022-05-05 19:14] VITALS: BP 110/74
[2022-05-05 19:27] LABS: Hematocrit 40.7 % (35.5-45.6); Hemoglobin 13.1 gm/dl (11.8-15.2); Mean Corpuscular HGB Conc 32 % (32-34); Mean Corpuscular Volume 93 fl (84-94); Platelet Count 277 K/mm3 (140-440); Red Blood Count 4.36 M/mm3 (3.65-5.03); Red Cell Distribution Width 15.6 % (13.2-15.2)
[2022-05-05 19:35] LABS: BUN/Creatinine Ratio 10; Blood Urea Nitrogen 14 mg/dL (9-20); Calcium 9.6 mg/dL (8.4-10.2); Hemolysis Index 12
[2022-05-05 19:48] LABS: INR 0.89 (0.87-1.13)
--- NOTE | 2022-05-05 20:06 | XRay Report ---
CHEST 1 VIEW 05/05/2022 7:44 PM INDICATION / CLINICAL INFORMATION: Shortness of breath and COPD. COMPARISON: 04/05/2022 FINDINGS: SUPPORT DEVICES: None. HEART / MEDIASTINUM: No significant abnormality. LUNGS / PLEURA: No significant pulmonary or pleural abnormality. No pneumothorax. ADDITIONAL FINDINGS: No significant additional findings. IMPRESSION: 1. No acute findings. Signer Name: Brett Jarrett MD Signed: 05/05/2022 8:02 PM Workstation Name: [id number]
--- NOTE | 2022-05-09 11:55 | Electrocardiograph Report ---
[facility] Test Date: 2022-05-05 Test Time: 18:57:48 Pat Name: ROGER REBOLLAR Department: Room: Gender: M Emergency Care Tech: SABIHA : 1955 Requested By: NANDA TALBOT Order Number: [id number] Reading MD: Gilbert Schwab Measurements Intervals [place] Rate: 92 P: 49 MT: 178 QRS: -40 QRSD: 91 T: 53 QT: 375 QTc: 464 Interpretive Statements Sinus rhythm Probable left atrial enlargement Left axis deviation Poor R wave progression Compared to ECG 04/05/2022 22:59:45 No significant changes Electronically Signed On 05-09-2022 11:54:54 EDT by Gilbert Schwab
== END 2022-05-05 20:34 | disposition home or self-care (01) ==
LOC: ED 18:05
DX: J44.1 Chronic obstructive pulmonary disease with (acute) exacerbation (principal); G89.29 Other chronic pain; I10 Essential (primary) hypertension; E11.9 Type 2 diabetes mellitus without complications; M19.90 Unspecified osteoarthritis, unspecified site; Z91.09 Other allergy status, other than to drugs and biological substances; Z79.899 Other long term (current) drug therapy
CPT/HCPCS: 36415; 71045; 80048; 82550; 83735; 84484; 85027; 85610; 93005; 94640; 96374; 96375; 99284; J1885; J2930; J3010; 94644